=== PATIENT | male | born 1990 | race Hispanic/Latino ===

== ENCOUNTER 2022-07-29 17:34 | Inpatient (IN) | payer BC, OTHER ==
[~2022-07-29] VITALS: Ht 167.6 cm; Wt 70.8 kg
[2022-07-29 18:43] LABS: BASOPHILS % (AUTO) 0.3 % (0.0-5.0); MEAN CORPUSCULAR HEMOGLOBIN 29.8 pg (27.0-33.0); MEAN CORPUSCULAR VOLUME 85.2 fL (79-99); NEUTROPHILS % (AUTO) 82.3 % (40.0-77.0); PLATELET COUNT (AUTO) 370 K/uL (130-400); RED BLOOD CELL COUNT(AUTO) 3.52 MIL/uL (4.50-6.20); RED CELL DISTRIBUTION WIDTH 11.7 % (11.0-15.5)
[2022-07-29 18:55] LABS: INR 0.93 (0.85-1.15); PROTHROMBIN TIME 9.7 SEC (9.6-11.6)
[2022-07-29 18:56] LABS: PARTIAL THROMBOPLASTIN TIME 33.1 SEC (26.3-35.5)
[2022-07-29 19:02] LABS: ALBUMIN 2.5 g/dL (3.5-5.0); CREATININE 1.5 mg/dL (0.5-1.5); POTASSIUM 4.2 mmol/L (3.5-5.1); TOTAL PROTEIN, SERUM 7.6 g/dL (6.0-8.3)
[2022-07-29] MEDS ORDERED: 0.9%NACL 1000ML 2,500 ML IV ONE (19:30)
[2022-07-29] MEDS ORDERED: INSULIN REGULAR, HUMAN 3ML 100 UNIT in 0.9%NACL 100ML 100 ML IV SCH ×2 (19:30)
[2022-07-29] MEDS ORDERED: 0.9%NACL 1000ML 1,000 ML IV SCH (19:30)
[2022-07-29] MEDS ORDERED: POTASSIUM CHLORIDE 10MEQ/100ML 100 ML IV PRN (19:30)
[2022-07-29] MEDS ORDERED: POTASSIUM CHLORIDE 20 MEQ/10 ML VIAL IV SCH (19:30)
[2022-07-29] MEDS ORDERED: DEXTROSE 5 %-0.45 % NACL 1,000 ML IV SCH (19:30)
[2022-07-29] MEDS ORDERED: MAGNESIUM 2GM PREMIX 50ML 50 ML IV SCH (19:30)
[2022-07-29] MEDS ORDERED: MANNITOL 20% IV SCH (19:30)
[2022-07-29 20:13] LABS: ABG BASE EXCESS -2.1 mmol/L (-2.0-3.0); ABG HCO3 23.2 mmol/L (21.0-28.0); ABG OXYGEN SATURATION 93.6 % (95.0-99.0); ABG PCO2 42 mmHg (35-48)
[2022-07-29] MEDS ORDERED: INSULIN HUMULIN R 100 UNIT/ML 3ML IV ONE (21:00)
[2022-07-29] MEDS ORDERED: ZOSYN 3.375GM +NS 50ML IV ONE (21:30)
[2022-07-29] MEDS ORDERED: NS-20 MEQ KCL 1000ML 1,000 ML IV SCH (22:00)
[2022-07-30] MEDS ORDERED: ACETAMINOPHEN 325 MG TAB PO PRN
[2022-07-30] MEDS ORDERED: 0.9%NACL 1000ML 1,000 ML IV SCH
[2022-07-30] MEDS ORDERED: MORPHINE 2 MG SYG IV PRN
[2022-07-30] MEDS ORDERED: POTASSIUM CHLORIDE 10MEQ/100ML 100 ML IV PRN
[2022-07-30] MEDS ORDERED: MANNITOL 20% IV SCH
[2022-07-30] MEDS ORDERED: POTASSIUM CHLORIDE 20 MEQ/10 ML VIAL IV SCH
[2022-07-30] MEDS ORDERED: INSULIN REGULAR, HUMAN 3ML 100 UNIT in 0.9%NACL 100ML 100 ML IV SCH ×2
[2022-07-30] MEDS ORDERED: MAGNESIUM 2GM PREMIX 50ML 50 ML IV SCH
[2022-07-30] MEDS ORDERED: DEXTROSE 5 %-0.45 % NACL 1,000 ML IV SCH
[2022-07-30] MEDS ORDERED: D5W-1/2 NS/20MEQ KCL 1,000 ML IV SCH (00:30)
[2022-07-30] MEDS ORDERED: INSULIN REGULAR, HUMAN 3ML 100 UNIT in 0.9%NACL 100ML 99 ML IV PRN ×2 (00:30)
[2022-07-30 02:38] LABS: CREATININE 1.2 mg/dL (0.5-1.5); POTASSIUM 3.2 mmol/L (3.5-5.1)
[2022-07-30] MEDS ORDERED: LIDOCAINE HCL-MPF 1% 2ML VIAL IV PRN (03:00)
[2022-07-30] MEDS ORDERED: DEXTROSE 50%-WATER 50 ML DISP.SYRIN IV PRN (03:00)
[2022-07-30] MEDS ORDERED: POTASSIUM CHLORIDE 20MEQ/100ML 100 ML IV PRN (03:00)
[2022-07-30] MEDS ORDERED: GLUCAGON 1MG KIT 1 MG ML IM PRN (03:00)
[2022-07-30 04:20] LABS: BASOPHILS % (AUTO) 0.2 % (0.0-5.0); HEMATOCRIT 28.9 % (42-54); LYMPHOCYTES % (AUTO) 9.7 % (21.0-51.0); MEAN CORPUSCULAR HEMOGLOBIN 29.7 pg (27.0-33.0); MEAN CORPUSCULAR HGB CONC 33.9 g/dL (32.0-36.0); MEAN CORPUSCULAR VOLUME 87.6 fL (79-99); MONOCYTES % (AUTO) 9.1 % (3.0-13.0); NEUTROPHILS % (AUTO) 79.4 % (40.0-77.0); PLATELET COUNT (AUTO) 348 K/uL (130-400); RED CELL DISTRIBUTION WIDTH 11.7 % (11.0-15.5); WHITE BLOOD COUNT (AUTO) 18.7 K/uL (4.8-10.8)
[2022-07-30 04:37] LABS: CREATININE 1.4 mg/dL (0.5-1.5); POTASSIUM 4.1 mmol/L (3.5-5.1)
[2022-07-30 04:49] LABS: CRP QUANTITATIVE 306.8 mg/L (0.00-9.0)
[2022-07-30] MEDS: ZOSYN 3.375GM+NS 50ML 50 ML IV SCH ×3 (05:03→19:36)
[2022-07-30] MEDS: 0.9%NACL 1000ML 1,000 ML IV SCH ×2 (05:04→15:32)
[2022-07-30 05:54] LABS: ERYTHROCYTE SEDIMENTATION RATE 127 MM/HR (0-15)
[2022-07-30] MEDS: INSULIN HUMULIN R 100 UNIT/ML 3ML SQ SCH ×3 (06:11→23:33)
[2022-07-30] MEDS: ENOXAPARIN SODIUM 30 MG/0.3 ML SQ SCH (08:51)
[2022-07-30] MEDS: FAMOTIDINE 20MG VIAL IV SCH ×2 (08:52→19:35)
[2022-07-30 10:45] VITALS: BP 134/78
[2022-07-30 12:00] VITALS: BP 140/77
[2022-07-30 16:00] VITALS: BP 124/66
[2022-07-30 20:00] VITALS: BP 114/56
[2022-07-31] VITALS: BP 110/62
[2022-07-31 04:00] VITALS: BP 117/60
[2022-07-31 04:36] LABS: BASOPHILS % (AUTO) 0.3 % (0.0-5.0); EOSINOPHILS % (AUTO) 1.3 % (0.0-8.0); HEMATOCRIT 26.9 % (42-54); LYMPHOCYTES % (AUTO) 10.3 % (21.0-51.0); MEAN CORPUSCULAR HEMOGLOBIN 29.2 pg (27.0-33.0); MEAN CORPUSCULAR HGB CONC 33.5 g/dL (32.0-36.0); MEAN CORPUSCULAR VOLUME 87.3 fL (79-99); MONOCYTES % (AUTO) 7.8 % (3.0-13.0); NEUTROPHILS % (AUTO) 79.4 % (40.0-77.0); PLATELET COUNT (AUTO) 376 K/uL (130-400); RED BLOOD CELL COUNT(AUTO) 3.08 MIL/uL (4.50-6.20); RED CELL DISTRIBUTION WIDTH 12.1 % (11.0-15.5)
[2022-07-31 05:04] LABS: ALBUMIN 1.7 g/dL (3.5-5.0); CREATININE 2.5 mg/dL (0.5-1.5); POTASSIUM 3.9 mmol/L (3.5-5.1); TOTAL PROTEIN, SERUM 6.3 g/dL (6.0-8.3)
[2022-07-31] MEDS: ZOSYN 3.375GM+NS 50ML 50 ML IV SCH ×3 (05:07→20:20)
[2022-07-31] MEDS: 0.9%NACL 1000ML 1,000 ML IV SCH ×3 (05:07→20:20)
[2022-07-31] MEDS: INSULIN HUMULIN R 100 UNIT/ML 3ML SQ SCH ×4 (06:55→20:11)
[2022-07-31 08:00] VITALS: BP 110/69
[2022-07-31] MEDS: FAMOTIDINE 20MG VIAL IV SCH ×2 (08:58→20:20)
[2022-07-31] MEDS: ENOXAPARIN SODIUM 30 MG/0.3 ML SQ SCH (08:58)
[2022-07-31 12:00] VITALS: BP 101/67
[2022-07-31] MEDS ORDERED: INSULIN GLARGINE 100 UNITS/ML 10 ML VIAL SQ SCH (12:00)
[2022-07-31 12:15] LABS: HEMOGLOBIN A1C 13.4 % (4.0-6.0)
[2022-07-31] MEDS: ZYVOX 600 MG TAB PO SCH ×2 (14:18→23:55)
[2022-07-31 16:00] VITALS: BP 147/86
[2022-07-31 20:00] VITALS: BP 149/93
[2022-07-31] MEDS: ACETAMINOPHEN 325 MG TAB PO PRN (20:20)
[2022-08-01] VITALS (7 sets, daily range): BP systolic 62–144; BP diastolic 62–87
[2022-08-01] MEDS: ZOSYN 3.375GM+NS 50ML 50 ML IV SCH ×3 (04:01→20:13)
[2022-08-01 06:17] LABS: BASOPHILS % (AUTO) 0.4 % (0.0-5.0); EOSINOPHILS % (AUTO) 0.7 % (0.0-8.0); HEMATOCRIT 25.9 % (42-54); LYMPHOCYTES % (AUTO) 9.5 % (21.0-51.0); MEAN CORPUSCULAR HEMOGLOBIN 29.6 pg (27.0-33.0); MEAN CORPUSCULAR HGB CONC 33.2 g/dL (32.0-36.0); MONOCYTES % (AUTO) 6.7 % (3.0-13.0); NEUTROPHILS % (AUTO) 81.5 % (40.0-77.0); PLATELET COUNT (AUTO) 395 K/uL (130-400); RED BLOOD CELL COUNT(AUTO) 2.91 MIL/uL (4.50-6.20); RED CELL DISTRIBUTION WIDTH 12.1 % (11.0-15.5); WHITE BLOOD COUNT (AUTO) 20.4 K/uL (4.8-10.8)
[2022-08-01 06:28] LABS: CREATININE 2.9 mg/dL (0.5-1.5); POTASSIUM 4.3 mmol/L (3.5-5.1)
[2022-08-01] MEDS: INSULIN GLARGINE 100 UNITS/ML 10 ML VIAL SQ SCH (08:28)
[2022-08-01] MEDS: INSULIN HUMULIN R 100 UNIT/ML 3ML SQ SCH ×4 (08:29→20:12)
[2022-08-01] MEDS: 0.9%NACL 1000ML 1,000 ML IV SCH ×2 (08:29→17:00)
[2022-08-01] MEDS: ENOXAPARIN SODIUM 30 MG/0.3 ML SQ SCH (08:30)
[2022-08-01] MEDS: ONDANSETRON 4MG INJ IV PRN ×2 (08:30→16:21)
[2022-08-01] MEDS: FAMOTIDINE 20MG VIAL IV SCH ×2 (08:30→20:13)
[2022-08-01] MEDS ORDERED: Vitamin B Complex/Vit C/Folic Acid PO SCH (09:00)
[2022-08-01] MEDS: ZYVOX 600 MG TAB PO SCH (14:04)
[2022-08-01] MEDS ORDERED: SODIUM CHLORIDE 3% FOR INHALATION 4 ML/AMP VIAL.NEB IH ONE (14:58)
[2022-08-02] MEDS: ZYVOX 600 MG TAB PO SCH (00:48)
[2022-08-02] MEDS: 0.9%NACL 1000ML 1,000 ML IV SCH (03:00)
[2022-08-02 03:24] VITALS: BP 153/86
[2022-08-02 05:18] LABS: BASOPHILS % (AUTO) 0.3 % (0.0-5.0); EOSINOPHILS % (AUTO) 0.9 % (0.0-8.0); HEMATOCRIT 26.7 % (42-54); LYMPHOCYTES % (AUTO) 9.6 % (21.0-51.0); MEAN CORPUSCULAR HEMOGLOBIN 29.2 pg (27.0-33.0); MEAN CORPUSCULAR VOLUME 88.7 fL (79-99); MONOCYTES % (AUTO) 6.4 % (3.0-13.0); NEUTROPHILS % (AUTO) 81.5 % (40.0-77.0); PLATELET COUNT (AUTO) 495 K/uL (130-400); RED BLOOD CELL COUNT(AUTO) 3.01 MIL/uL (4.50-6.20); RED CELL DISTRIBUTION WIDTH 12.5 % (11.0-15.5); WHITE BLOOD COUNT (AUTO) 18.5 K/uL (4.8-10.8)
[2022-08-02 05:33] LABS: ALBUMIN 1.6 g/dL (3.5-5.0); CREATININE 2.5 mg/dL (0.5-1.5); PHOSPHORUS 3.3 mg/dL (2.5-4.9); POTASSIUM 3.9 mmol/L (3.5-5.1)
[2022-08-02] MEDS: ZOSYN 3.375GM+NS 50ML 50 ML IV SCH (05:49)
[2022-08-02] MEDS: ACETAMINOPHEN 325 MG TAB PO PRN (05:54)
[2022-08-02] MEDS: INSULIN HUMULIN R 100 UNIT/ML 3ML SQ SCH ×5 (07:30→20:34)
[2022-08-02 08:00] VITALS: BP 144/84
[2022-08-02] MEDS: ENOXAPARIN SODIUM 30 MG/0.3 ML SQ SCH (08:18)
[2022-08-02] MEDS: FAMOTIDINE 20MG VIAL IV SCH ×2 (08:19→20:27)
[2022-08-02] MEDS: INSULIN GLARGINE 100 UNITS/ML 10 ML VIAL SQ SCH (08:22)
[2022-08-02 12:00] VITALS: BP 147/91
[2022-08-02] MEDS: CEFAZOLIN SODIUM 2 GM VIAL IVPB SCH ×2 (13:18→20:27)
[2022-08-02 16:00] VITALS: BP 147/87
[2022-08-02 21:05] VITALS: BP 136/85
[2022-08-03] VITALS (23 sets, daily range): BP systolic 140–172; BP diastolic 78–121
[2022-08-03 05:58] LABS: BASOPHILS % (AUTO) 0.3 % (0.0-5.0); EOSINOPHILS % (AUTO) 1.3 % (0.0-8.0); HEMATOCRIT 27.2 % (42-54); MEAN CORPUSCULAR HEMOGLOBIN 29.9 pg (27.0-33.0); MEAN CORPUSCULAR HGB CONC 33.1 g/dL (32.0-36.0); MEAN CORPUSCULAR VOLUME 90.4 fL (79-99); MONOCYTES % (AUTO) 6.9 % (3.0-13.0); NEUTROPHILS % (AUTO) 77.6 % (40.0-77.0); PLATELET COUNT (AUTO) 503 K/uL (130-400); RED BLOOD CELL COUNT(AUTO) 3.01 MIL/uL (4.50-6.20); RED CELL DISTRIBUTION WIDTH 12.5 % (11.0-15.5); WHITE BLOOD COUNT (AUTO) 16.3 K/uL (4.8-10.8)
[2022-08-03 06:16] LABS: CREATININE 2.3 mg/dL (0.5-1.5); POTASSIUM 3.8 mmol/L (3.5-5.1)
[2022-08-03] MEDS: INSULIN HUMULIN R 100 UNIT/ML 3ML SQ SCH ×7 (06:41→22:41)
[2022-08-03] MEDS: INSULIN GLARGINE 100 UNITS/ML 10 ML VIAL SQ SCH (07:17)
[2022-08-03] MEDS: ENOXAPARIN SODIUM 30 MG/0.3 ML SQ SCH (07:18)
[2022-08-03] MEDS: FAMOTIDINE 20MG VIAL IV SCH ×2 (08:33→19:41)
[2022-08-03] MEDS: CEFAZOLIN SODIUM 2 GM VIAL IVPB SCH ×2 (08:33→19:41)
[2022-08-03] MEDS: LACTATED RINGERS 1000ML 1,000 ML IV SCH (10:30)
[2022-08-03] MEDS ORDERED: LIDOCAINE HCL 1% 20 ML VIAL ONE (12:52)
[2022-08-03] MEDS ORDERED: BUPIVACAINE/PF 0.5% 30ML VIAL ONE (12:52)
[2022-08-03] MEDS ORDERED: FENTANYL CITRATE PF 50 MCG/1 ML 2ML VIAL ONE ×2 (13:19→15:11)
[2022-08-03] MEDS ORDERED: MIDAZOLAM HCL 1 MG/ML 2ML VIAL ONE (13:19)
[2022-08-03] MEDS ORDERED: BACITRACIN 28.4 GM OINT TP ONE (13:25)
[2022-08-03] MEDS ORDERED: DEXTROSE 50%-WATER 50 ML DISP.SYRIN IV ONE (13:55)
[2022-08-03] MEDS ORDERED: LIDOCAINE HCL 1% 20 ML VIAL MISC ONE (15:23)
[2022-08-03] MEDS ORDERED: BUPIVACAINE/PF 0.5% 30ML VIAL INJ ONE (15:23)
[2022-08-04] VITALS: BP 151/87
[2022-08-04] MEDS: LACTATED RINGERS 1000ML 1,000 ML IV SCH ×3 (02:30→18:43)
[2022-08-04] MEDS: INSULIN HUMULIN R 100 UNIT/ML 3ML SQ SCH ×7 (06:44→20:52)
[2022-08-04 08:00] VITALS: BP 105/69
[2022-08-04 08:02] VITALS: BP 162/94
[2022-08-04] MEDS: INSULIN GLARGINE 100 UNITS/ML 10 ML VIAL SQ SCH (09:01)
[2022-08-04] MEDS: AMLODIPINE 5 MG TAB PO SCH (09:21)
[2022-08-04] MEDS: FAMOTIDINE 20MG VIAL IV SCH ×2 (09:21→22:28)
[2022-08-04] MEDS: ENOXAPARIN SODIUM 30 MG/0.3 ML SQ SCH (09:23)
[2022-08-04] MEDS: CEFAZOLIN SODIUM 2 GM VIAL IVPB SCH ×2 (11:16→22:27)
[2022-08-04 11:45] VITALS: BP 146/79
[2022-08-04 16:00] VITALS: BP 153/88
[2022-08-04 19:00] VITALS: BP 160/94
[2022-08-04 19:58] LABS: APPEARANCE,URINE CLOUDY (CLEAR); BILIRUBIN,URINE NEGATIVE (NEGATIVE); GLUCOSE, URINE (UA) 500 mg/dL (NEGATIVE); KETONES,URINE NEGATIVE (NEGATIVE); LEUKOCYTE ESTERASE ,URINE NEGATIVE Leu/uL (NEGATIVE); NITRATE,URINE NEGATIVE (NEGATIVE); OCCULT BLOOD,URINE LARGE (NEGATIVE); PH,URINE 7.5 (5.0-8.0); PROTEIN,URINE 300 mg/dL (NEGATIVE); UROBILINOGEN,URINE 0.2 mg/dL (0.2-1.0)
[2022-08-04 20:01] LABS: CREATININE,URINE RANDOM 22 mg/dL (30-135); SODIUM,URINE RANDOM 91 mmol/l (40-220)
[2022-08-04 20:07] LABS: MUCUS,URINE RARE LPF (None Seen); RBC,URINE TNTC /HPF (0-1)
[2022-08-04 20:08] LABS: COLOR,URINE RED (YELLOW)
[2022-08-05] VITALS: BP 137/74
[2022-08-05] MEDS: LACTATED RINGERS 1000ML 1,000 ML IV SCH ×2 (02:30→10:30)
[2022-08-05 04:00] VITALS: BP 136/78
[2022-08-05 05:20] LABS: BASOPHILS % (AUTO) 0.3 % (0.0-5.0); EOSINOPHILS % (AUTO) 2.3 % (0.0-8.0); HEMATOCRIT 26.8 % (42-54); LYMPHOCYTES % (AUTO) 19.1 % (21.0-51.0); MEAN CORPUSCULAR HEMOGLOBIN 29.2 pg (27.0-33.0); MEAN CORPUSCULAR HGB CONC 33.2 g/dL (32.0-36.0); MEAN CORPUSCULAR VOLUME 87.9 fL (79-99); MONOCYTES % (AUTO) 7.1 % (3.0-13.0); NEUTROPHILS % (AUTO) 69.6 % (40.0-77.0); PLATELET COUNT (AUTO) 515 K/uL (130-400); RED BLOOD CELL COUNT(AUTO) 3.05 MIL/uL (4.50-6.20); RED CELL DISTRIBUTION WIDTH 12.2 % (11.0-15.5); WHITE BLOOD COUNT (AUTO) 14.2 K/uL (4.8-10.8)
[2022-08-05 05:26] LABS: CREATININE 1.9 mg/dL (0.5-1.5); MAGNESIUM 1.8 mg/dL (1.80-2.40); PHOSPHORUS 3.5 mg/dL (2.5-4.9); POTASSIUM 4.3 mmol/L (3.5-5.1)
[2022-08-05] MEDS: INSULIN HUMULIN R 100 UNIT/ML 3ML SQ SCH ×4 (06:59→12:36)
[2022-08-05 08:00] VITALS: BP 137/87
[2022-08-05] MEDS: INSULIN GLARGINE 100 UNITS/ML 10 ML VIAL SQ SCH (08:22)
[2022-08-05] MEDS: FAMOTIDINE 20MG VIAL IV SCH (08:24)
[2022-08-05] MEDS: ENOXAPARIN SODIUM 30 MG/0.3 ML SQ SCH (08:24)
[2022-08-05] MEDS: AMLODIPINE 5 MG TAB PO SCH (08:24)
[2022-08-05] MEDS ORDERED: METF-446 PO (10:49)
[2022-08-05] MEDS ORDERED: CEFU500T67 PO (10:49)
[2022-08-05] MEDS ORDERED: AMLO5TAB4 PO (10:49)
[2022-08-05 12:00] VITALS: BP 155/90
[2022-08-05] MEDS: CEFAZOLIN SODIUM 2 GM VIAL IVPB SCH (12:35)
== END 2022-08-05 16:09 | disposition home or self-care (01) | DRG 853 ==
LOC: EDH 17:34 → EDHIP 17:35 → 4AH 07-30 10:00
PROVIDERS: ADMIT Internal Medicine; ATTEND Internal Medicine
PROC: 0JBQ0ZZ Excision of Right Foot Subcutaneous Tissue and Fascia, Open Approach (ICD-10-PCS; principal; 2022-08-03 15:03)
DX: A41.01 Sepsis due to Methicillin susceptible Staphylococcus aureus (principal); E11.10 Type 2 diabetes mellitus with ketoacidosis without coma; N17.0 Acute kidney failure with tubular necrosis; Z20.822 Contact with and (suspected) exposure to COVID-19; L03.115 Cellulitis of right lower limb; J90 Pleural effusion, not elsewhere classified; E11.621 Type 2 diabetes mellitus with foot ulcer; L97.519 Non-pressure chronic ulcer of other part of right foot with unspecified severity; E11.42 Type 2 diabetes mellitus with diabetic polyneuropathy; D63.1 Anemia in chronic kidney disease; E11.22 Type 2 diabetes mellitus with diabetic chronic kidney disease; E11.69 Type 2 diabetes mellitus with other specified complication; E66.9 Obesity, unspecified; N18.9 Chronic kidney disease, unspecified; I12.9 Hypertensive chronic kidney disease with stage 1 through stage 4 chronic kidney disease, or unspecified chronic kidney disease; Z83.3 Family history of diabetes mellitus; Z91.199 Patient's noncompliance with other medical treatment and regimen due to unspecified reason; Z79.4 Long term (current) use of insulin; Z79.84 Long term (current) use of oral hypoglycemic drugs; Z68.25 Body mass index [BMI] 25.0-25.9, adult
CPT/HCPCS: 36415; 36600; 71045; 73620; 73718; 76770; 80048; 80053; 80069; 81001; 82010; 82570; 82803; 82948; 83036; 83605; 83735; 83930; 84100; 84145; 84300; 85025; 85610; 85651; 85730; 86140; 87040; 87070; 87071; 87076; 87077; 87186; 87205; 87635; 87804; 87880; 93926; 93970; A4606; C9803; G0378; J1650; J1815; J2250; J2405; J2543; J3010; J3480; J3490; J7030; J7070

== ENCOUNTER 2022-09-15 18:25 | Inpatient (IN) | payer OTHER ==
[~2022-09-15] VITALS: Ht 170.2 cm; Wt 69.0 kg
[~2022-09-15 18:25] MED LIST: AMLO5TAB4 PO; CEFU500T67 PO; METF-446 PO
[2022-09-15] MEDS ORDERED: ONDANSETRON 4MG INJ IV PRN (19:30)
[2022-09-15] MEDS ORDERED: MORPHINE 2 MG SYG IV PRN (19:30)
[2022-09-15] MEDS ORDERED: VANCOMYCIN PROTOCOL PER PHARMACY IV PRN (19:30)
[2022-09-15] MEDS ORDERED: PHARMACY COMMUNICATION MISC SCH (19:30)
[2022-09-15] MEDS ORDERED: ACETAMINOPHEN 325 MG TAB PO PRN (19:30)
[2022-09-15] MEDS ORDERED: MORPHINE 4 MG SYG IV PRN (19:30)
[2022-09-15 20:21] LABS: BASOPHILS % (AUTO) 0.4 % (0.0-5.0); EOSINOPHILS % (AUTO) 2.4 % (0.0-8.0); HEMATOCRIT 30.7 % (42-54); LYMPHOCYTES % (AUTO) 16.4 % (21.0-51.0); MEAN CORPUSCULAR HEMOGLOBIN 28.5 pg (27.0-33.0); MEAN CORPUSCULAR HGB CONC 33.2 g/dL (32.0-36.0); MEAN CORPUSCULAR VOLUME 85.8 fL (79-99); MONOCYTES % (AUTO) 7.3 % (3.0-13.0); NEUTROPHILS % (AUTO) 73.1 % (40.0-77.0); PLATELET COUNT (AUTO) 377 K/uL (130-400); RED BLOOD CELL COUNT(AUTO) 3.58 MIL/uL (4.50-6.20); RED CELL DISTRIBUTION WIDTH 12.3 % (11.0-15.5); WHITE BLOOD COUNT (AUTO) 10.7 K/uL (4.8-10.8)
[2022-09-15 20:33] LABS: INR 0.93 (0.85-1.15); PROTHROMBIN TIME 9.9 SEC (9.6-11.6)
[2022-09-15 20:34] LABS: PARTIAL THROMBOPLASTIN TIME 28.5 SEC (26.3-35.5)
[2022-09-15 20:40] LABS: HEMOGLOBIN A1C 12.6 % (4.0-6.0)
[2022-09-15 20:54] LABS: ALBUMIN 2.4 g/dL (3.5-5.0); CREATININE 1.5 mg/dL (0.5-1.5); MAGNESIUM 1.8 mg/dL (1.80-2.40); PHOSPHORUS 3.8 mg/dL (2.5-4.9); POTASSIUM 4.6 mmol/L (3.5-5.1); TOTAL PROTEIN, SERUM 7.7 g/dL (6.0-8.3)
[2022-09-15] MEDS: LACTATED RINGERS 1000ML 1,000 ML IV SCH (21:50)
[2022-09-15] MEDS: CEFEPIME HCL 2 GM VIAL IVPB SCH (21:50)
[2022-09-15] MEDS: FAMOTIDINE 20MG TAB PO SCH (21:50)
[2022-09-15] MEDS: VANCOMYCIN 1G/250ML KIT 250 ML IV SCH (21:50)
[2022-09-15 22:20] LABS: APPEARANCE,URINE CLEAR (CLEAR); BILIRUBIN,URINE NEGATIVE (NEGATIVE); COLOR,URINE COLORLESS (YELLOW); GLUCOSE, URINE (UA) >=1000 mg/dL (NEGATIVE); KETONES,URINE NEGATIVE (NEGATIVE); LEUKOCYTE ESTERASE ,URINE NEGATIVE Leu/uL (NEGATIVE); NITRATE,URINE NEGATIVE (NEGATIVE); OCCULT BLOOD,URINE SMALL (NEGATIVE); PH,URINE 6.5 (5.0-8.0); PROTEIN,URINE 200 mg/dL (NEGATIVE); UROBILINOGEN,URINE 0.2 mg/dL (0.2-1.0)
[2022-09-15 22:22] LABS: BACTERIA,URINE RARE /HPF (None Seen); MUCUS,URINE RARE LPF (None Seen)
[2022-09-15 23:06] VITALS: BP 166/94
[2022-09-16] MEDS ORDERED: POTASSIUM CHLORIDE 10% ELIXIR 20 MEQ/15 ML UDCUP PO PRN (01:30)
[2022-09-16] MEDS ORDERED: POTASSIUM CHLORIDE 20MEQ/100ML 100 ML IV PRN (01:30)
[2022-09-16] MEDS ORDERED: KCL 20 MEQ ERTAB PO PRN (01:30)
[2022-09-16] MEDS ORDERED: MAGNESIUM 2GM PREMIX 50ML 50 ML IV PRN (01:30)
[2022-09-16] MEDS ORDERED: LIDOCAINE HCL-MPF 1% 2ML VIAL IV PRN (01:30)
[2022-09-16 04:02] VITALS: BP 154/96
[2022-09-16 05:45] LABS: BASOPHILS % (AUTO) 0.7 % (0.0-5.0); HEMATOCRIT 26.8 % (42-54); LYMPHOCYTES % (AUTO) 27.5 % (21.0-51.0); MEAN CORPUSCULAR HEMOGLOBIN 28.5 pg (27.0-33.0); MEAN CORPUSCULAR HGB CONC 32.5 g/dL (32.0-36.0); MEAN CORPUSCULAR VOLUME 87.9 fL (79-99); MONOCYTES % (AUTO) 8.4 % (3.0-13.0); NEUTROPHILS % (AUTO) 58.1 % (40.0-77.0); PLATELET COUNT (AUTO) 341 K/uL (130-400); RED BLOOD CELL COUNT(AUTO) 3.05 MIL/uL (4.50-6.20); RED CELL DISTRIBUTION WIDTH 12.2 % (11.0-15.5); WHITE BLOOD COUNT (AUTO) 8.9 K/uL (4.8-10.8)
[2022-09-16 05:55] LABS: CREATININE 1.2 mg/dL (0.5-1.5); POTASSIUM 3.9 mmol/L (3.5-5.1)
[2022-09-16] MEDS: INSULIN HUMULIN R 100 UNIT/ML 3ML SQ SCH ×4 (06:19→21:00)
[2022-09-16 07:30] VITALS: BP 129/92
[2022-09-16] MEDS: ENOXAPARIN SODIUM 40 MG/0.4 ML SYRINGE SQ SCH ×2 (08:29→09:00)
[2022-09-16] MEDS: FAMOTIDINE 20MG TAB PO SCH ×2 (08:29→21:31)
[2022-09-16] MEDS: CEFEPIME HCL 2 GM VIAL IVPB SCH ×2 (08:29→21:30)
[2022-09-16] MEDS: VANCOMYCIN 1G/250ML KIT 250 ML IV SCH ×2 (09:23→21:31)
[2022-09-16] MEDS: INSULIN GLARGINE 100 UNITS/ML 10 ML VIAL SQ SCH ×2 (11:20→21:32)
[2022-09-16 11:25] VITALS: BP 160/93
[2022-09-16] MEDS: LACTATED RINGERS 1000ML 1,000 ML IV SCH (12:19)
[2022-09-16 15:25] VITALS: BP 170/100
[2022-09-16] MEDS: ACETAMINOPHEN 325 MG TAB PO PRN (16:41)
[2022-09-16 19:12] VITALS: BP 155/84
[2022-09-16] MEDS ORDERED: 0.9% NACL 250ML 250 ML ONE (21:19)
[2022-09-17 00:12] VITALS: BP 144/83
[2022-09-17] MEDS: LACTATED RINGERS 1000ML 1,000 ML IV SCH ×2 (01:32→21:39)
[2022-09-17 03:12] VITALS: BP 124/77
[2022-09-17] MEDS: INSULIN HUMULIN R 100 UNIT/ML 3ML SQ SCH ×4 (06:22→21:00)
[2022-09-17] MEDS: INSULIN GLARGINE 100 UNITS/ML 10 ML VIAL SQ SCH (06:26)
[2022-09-17 07:30] VITALS: BP 125/72
[2022-09-17 08:01] LABS: BASOPHILS % (AUTO) 0.5 % (0.0-5.0); EOSINOPHILS % (AUTO) 2.7 % (0.0-8.0); HEMATOCRIT 27.2 % (42-54); LYMPHOCYTES % (AUTO) 16.2 % (21.0-51.0); MEAN CORPUSCULAR HEMOGLOBIN 28.4 pg (27.0-33.0); MEAN CORPUSCULAR HGB CONC 33.1 g/dL (32.0-36.0); MEAN CORPUSCULAR VOLUME 85.8 fL (79-99); MONOCYTES % (AUTO) 5.3 % (3.0-13.0); NEUTROPHILS % (AUTO) 74.9 % (40.0-77.0); PLATELET COUNT (AUTO) 368 K/uL (130-400); RED BLOOD CELL COUNT(AUTO) 3.17 MIL/uL (4.50-6.20); RED CELL DISTRIBUTION WIDTH 12.3 % (11.0-15.5); WHITE BLOOD COUNT (AUTO) 8.5 K/uL (4.8-10.8)
[2022-09-17 08:15] LABS: ALBUMIN 1.8 g/dL (3.5-5.0); CREATININE 1.2 mg/dL (0.5-1.5); CRP QUANTITATIVE 44.3 mg/L (0.00-9.0); MAGNESIUM 1.7 mg/dL (1.80-2.40); POTASSIUM 3.7 mmol/L (3.5-5.1); TOTAL PROTEIN, SERUM 6.5 g/dL (6.0-8.3)
[2022-09-17] MEDS: AMLODIPINE 5 MG TAB PO SCH (08:41)
[2022-09-17] MEDS: CEFEPIME HCL 2 GM VIAL IVPB SCH ×2 (08:41→21:37)
[2022-09-17] MEDS: FAMOTIDINE 20MG TAB PO SCH ×2 (08:41→21:37)
[2022-09-17] MEDS: ENOXAPARIN SODIUM 40 MG/0.4 ML SYRINGE SQ SCH (08:42)
[2022-09-17 11:30] VITALS: BP 144/82
[2022-09-17 15:20] VITALS: BP 140/87
[2022-09-17] MEDS: INSULIN HUMULIN 70/30 100 UNIT/ML 3ML SQ SCH (16:38)
[2022-09-17 19:15] VITALS: BP 154/91
[2022-09-17] MEDS: VANCOMYCIN 750MG VIAL IVPB SCH (21:38)
[2022-09-17] MEDS: 0.9% NACL 250ML 250 ML IV SCH (21:38)
[2022-09-18 00:15] VITALS: BP 130/82
[2022-09-18 03:15] VITALS: BP 174/95
[2022-09-18] MEDS: INSULIN HUMULIN R 100 UNIT/ML 3ML SQ SCH ×4 (06:04→22:02)
[2022-09-18] MEDS: INSULIN HUMULIN 70/30 100 UNIT/ML 3ML SQ SCH ×2 (06:22→17:10)
[2022-09-18 08:00] VITALS: BP 144/90
[2022-09-18] MEDS: CEFEPIME HCL 2 GM VIAL IVPB SCH ×2 (09:03→22:00)
[2022-09-18] MEDS: AMLODIPINE 5 MG TAB PO SCH (09:04)
[2022-09-18] MEDS: FAMOTIDINE 20MG TAB PO SCH ×2 (09:04→22:01)
[2022-09-18] MEDS: VANCOMYCIN 750MG VIAL IVPB SCH ×2 (09:04→22:00)
[2022-09-18] MEDS: ENOXAPARIN SODIUM 40 MG/0.4 ML SYRINGE SQ SCH (09:04)
[2022-09-18] MEDS: 0.9% NACL 250ML 250 ML IV SCH ×2 (09:05→22:01)
[2022-09-18 11:48] VITALS: BP 142/87
[2022-09-18] MEDS: LISINOPRIL 20 MG TABLET PO SCH (12:17)
[2022-09-18 16:00] VITALS: BP 162/95
[2022-09-18] MEDS: LACTATED RINGERS 1000ML 1,000 ML IV SCH (17:14)
[2022-09-18 19:00] VITALS: BP 147/86
[2022-09-19] VITALS (24 sets, daily range): BP systolic 115–156; BP diastolic 65–98
[2022-09-19] MEDS: LACTATED RINGERS 1000ML 1,000 ML IV SCH (03:07)
[2022-09-19] MEDS ORDERED: BUPIVACAINE/PF 0.5% 30ML VIAL ONE (05:03)
[2022-09-19] MEDS ORDERED: LIDOCAINE HCL 1% MDV 50ML VIAL ONE (05:03)
[2022-09-19] MEDS: INSULIN HUMULIN R 100 UNIT/ML 3ML SQ SCH ×4 (06:09→21:00)
[2022-09-19] MEDS: INSULIN HUMULIN 70/30 100 UNIT/ML 3ML SQ SCH ×2 (06:10→16:42)
[2022-09-19 07:09] LABS: BASOPHILS % (AUTO) 0.8 % (0.0-5.0); EOSINOPHILS % (AUTO) 1.4 % (0.0-8.0); HEMATOCRIT 33.9 % (42-54); LYMPHOCYTES % (AUTO) 20.8 % (21.0-51.0); MEAN CORPUSCULAR HEMOGLOBIN 28.2 pg (27.0-33.0); MEAN CORPUSCULAR HGB CONC 32.2 g/dL (32.0-36.0); MEAN CORPUSCULAR VOLUME 87.8 fL (79-99); MONOCYTES % (AUTO) 4.8 % (3.0-13.0); NEUTROPHILS % (AUTO) 71.7 % (40.0-77.0); PLATELET COUNT (AUTO) 452 K/uL (130-400); RED BLOOD CELL COUNT(AUTO) 3.86 MIL/uL (4.50-6.20); RED CELL DISTRIBUTION WIDTH 12.4 % (11.0-15.5); WHITE BLOOD COUNT (AUTO) 8.6 K/uL (4.8-10.8)
[2022-09-19 07:24] LABS: CREATININE 1.3 mg/dL (0.5-1.5); MAGNESIUM 1.7 mg/dL (1.80-2.40); PHOSPHORUS 4.4 mg/dL (2.5-4.9); POTASSIUM 3.9 mmol/L (3.5-5.1)
[2022-09-19] MEDS ORDERED: MIDAZOLAM HCL 1 MG/ML 2ML VIAL ONE (07:35)
[2022-09-19] MEDS ORDERED: FENTANYL CITRATE PF 50 MCG/1 ML 2ML VIAL ONE ×2 (07:36→08:23)
[2022-09-19] MEDS ORDERED: PROPOFOL 10 MG/ML 20ML VIAL IV ONE (07:36)
[2022-09-19] MEDS ORDERED: PHENYLEPHRINE HCL 10 MG/ML 1ML VIAL IV ONE (08:39)
[2022-09-19] MEDS: CEFEPIME HCL 2 GM VIAL IVPB SCH (11:13)
[2022-09-19] MEDS: ENOXAPARIN SODIUM 40 MG/0.4 ML SYRINGE SQ SCH (11:14)
[2022-09-19] MEDS: AMLODIPINE 5 MG TAB PO SCH (11:15)
[2022-09-19] MEDS: LISINOPRIL 20 MG TABLET PO SCH (11:15)
[2022-09-19] MEDS: FAMOTIDINE 20MG TAB PO SCH ×2 (11:15→22:08)
[2022-09-20] VITALS: BP 136/75
[2022-09-20 04:00] VITALS: BP 92/56
[2022-09-20] MEDS: INSULIN HUMULIN 70/30 100 UNIT/ML 3ML SQ SCH ×2 (06:34→16:30)
[2022-09-20] MEDS: INSULIN HUMULIN R 100 UNIT/ML 3ML SQ SCH ×4 (06:35→21:00)
[2022-09-20 06:59] LABS: BASOPHILS % (AUTO) 0.4 % (0.0-5.0); EOSINOPHILS % (AUTO) 1.4 % (0.0-8.0); HEMATOCRIT 27.7 % (42-54); LYMPHOCYTES % (AUTO) 15.6 % (21.0-51.0); MEAN CORPUSCULAR HEMOGLOBIN 28.1 pg (27.0-33.0); MEAN CORPUSCULAR HGB CONC 32.1 g/dL (32.0-36.0); MEAN CORPUSCULAR VOLUME 87.4 fL (79-99); MONOCYTES % (AUTO) 8.2 % (3.0-13.0); NEUTROPHILS % (AUTO) 74.2 % (40.0-77.0); PLATELET COUNT (AUTO) 361 K/uL (130-400); RED BLOOD CELL COUNT(AUTO) 3.17 MIL/uL (4.50-6.20); RED CELL DISTRIBUTION WIDTH 12.5 % (11.0-15.5); WHITE BLOOD COUNT (AUTO) 9.7 K/uL (4.8-10.8)
[2022-09-20 07:25] VITALS: BP 100/61
[2022-09-20 07:51] LABS: CREATININE 1.3 mg/dL (0.5-1.5); POTASSIUM 3.5 mmol/L (3.5-5.1); VANCOMYCIN LEVEL 8.7 mcg/mL (18.0-26.0)
[2022-09-20] MEDS: FAMOTIDINE 20MG TAB PO SCH ×2 (08:34→22:32)
[2022-09-20] MEDS: ENOXAPARIN SODIUM 40 MG/0.4 ML SYRINGE SQ SCH (08:35)
[2022-09-20] MEDS: AMLODIPINE 5 MG TAB PO SCH (09:00)
[2022-09-20] MEDS: LISINOPRIL 20 MG TABLET PO SCH (09:00)
[2022-09-20 10:40] VITALS: BP 106/63
[2022-09-20 15:55] VITALS: BP 137/79
[2022-09-20] MEDS ORDERED: VANCOMYCIN 1G/250ML KIT 250 ML IV ONE (16:30)
[2022-09-20] MEDS ORDERED: 0.9% NACL 250ML 250 ML ONE (16:45)
[2022-09-20 20:00] VITALS: BP 136/81
[2022-09-21] VITALS: BP 137/68
[2022-09-21 04:00] VITALS: BP 129/74
[2022-09-21 05:08] LABS: BASOPHILS % (AUTO) 0.5 % (0.0-5.0); EOSINOPHILS % (AUTO) 3.2 % (0.0-8.0); HEMATOCRIT 24.2 % (42-54); LYMPHOCYTES % (AUTO) 25.6 % (21.0-51.0); MEAN CORPUSCULAR HEMOGLOBIN 28.5 pg (27.0-33.0); MEAN CORPUSCULAR HGB CONC 31.8 g/dL (32.0-36.0); MEAN CORPUSCULAR VOLUME 89.6 fL (79-99); MONOCYTES % (AUTO) 9.6 % (3.0-13.0); NEUTROPHILS % (AUTO) 60.7 % (40.0-77.0); PLATELET COUNT (AUTO) 317 K/uL (130-400); RED CELL DISTRIBUTION WIDTH 12.4 % (11.0-15.5); WHITE BLOOD COUNT (AUTO) 9.8 K/uL (4.8-10.8)
[2022-09-21 05:15] LABS: CREATININE 1.2 mg/dL (0.5-1.5); POTASSIUM 3.8 mmol/L (3.5-5.1)
[2022-09-21] MEDS ORDERED: 0.9%NACL 100ML 100 ML ONE (06:16)
[2022-09-21] MEDS: VANCOMYCIN 500MG+NS 100ML 100 ML IV SCH ×2 (06:21→18:00)
[2022-09-21] MEDS: INSULIN HUMULIN R 100 UNIT/ML 3ML SQ SCH ×3 (06:23→16:43)
[2022-09-21] MEDS: INSULIN HUMULIN 70/30 100 UNIT/ML 3ML SQ SCH ×2 (06:24→16:44)
[2022-09-21 08:00] VITALS: BP 124/77
[2022-09-21] MEDS: ENOXAPARIN SODIUM 40 MG/0.4 ML SYRINGE SQ SCH (08:48)
[2022-09-21] MEDS: FAMOTIDINE 20MG TAB PO SCH (08:49)
[2022-09-21] MEDS: AMLODIPINE 5 MG TAB PO SCH (08:49)
[2022-09-21] MEDS: LISINOPRIL 20 MG TABLET PO SCH (08:49)
[2022-09-21 12:00] VITALS: BP 122/76
[2022-09-21] MEDS: LACTATED RINGERS 1000ML 1,000 ML IV SCH (12:25)
[2022-09-21] MEDS: ACETAMINOPHEN 325 MG TAB PO PRN (12:30)
== END 2022-09-21 18:30 | disposition home or self-care (01) | DRG 616 ==
LOC: EDH 18:25 → EDHIP 18:26 → DIRECT 19:20 → 3DH 23:02
PROVIDERS: ADMIT Internal Medicine; ATTEND Internal Medicine
PROC: 0Y6M0ZF Detachment at Right Foot, Partial 5th Ray, Open Approach (ICD-10-PCS; principal; 2022-09-19 08:05)
DX: E11.621 Type 2 diabetes mellitus with foot ulcer (principal); E43 Unspecified severe protein-calorie malnutrition; L03.115 Cellulitis of right lower limb; M86.8X7 Other osteomyelitis, ankle and foot; Z20.822 Contact with and (suspected) exposure to COVID-19; N17.9 Acute kidney failure, unspecified; E11.69 Type 2 diabetes mellitus with other specified complication; L97.514 Non-pressure chronic ulcer of other part of right foot with necrosis of bone; E86.0 Dehydration; E11.65 Type 2 diabetes mellitus with hyperglycemia; E66.9 Obesity, unspecified; E11.42 Type 2 diabetes mellitus with diabetic polyneuropathy; E11.51 Type 2 diabetes mellitus with diabetic peripheral angiopathy without gangrene; Z83.3 Family history of diabetes mellitus; Z51.5 Encounter for palliative care; Z79.84 Long term (current) use of oral hypoglycemic drugs; Z79.899 Other long term (current) drug therapy
CPT/HCPCS: 36415; 73630; 73718; 80048; 80053; 80202; 81001; 82948; 83036; 83605; 83735; 84100; 84145; 85025; 85610; 85730; 86140; 86850; 86900; 86901; 87040; 87070; 87076; 87077; 87088; 87186; 87205; 87635; 93005; 93926; 97039; G0378; J0692; J1650; J1815; J2250; J2370; J2405; J2704; J3010; J3370; J3490; J7050; J7120

== ENCOUNTER 2022-11-13 10:17 | Emergency (ER) | payer BC, OTHER ==
[~2022-11-13] VITALS: Ht 167.6 cm; Wt 74.8 kg
[~2022-11-13 10:17] MED LIST changes: -CEFU500T67 PO
[2022-11-13 10:18] VITALS: BP 151/101
[2022-11-13] MEDS ORDERED: SOLU-MEDROL 125MG VIAL IM ONE (11:00)
[2022-11-13] MEDS ORDERED: PRED-904 PO (11:09)
== END 2022-11-13 12:45 | disposition home or self-care (01) ==
LOC: EDH 10:17
DX: H02.846 Edema of left eye, unspecified eyelid (principal); H02.843 Edema of right eye, unspecified eyelid; E11.9 Type 2 diabetes mellitus without complications; Z79.899 Other long term (current) drug therapy; Z79.84 Long term (current) use of oral hypoglycemic drugs; Z98.890 Other specified postprocedural states
CPT/HCPCS: 99284; 96372; J2930

== ENCOUNTER 2025-07-09 12:42 | Emergency (ER) | payer MEDICAID, OTHER ==
[~2025-07-09] VITALS: Ht 170.2 cm; Wt 73.5 kg
[~2025-07-09 12:42] MED LIST changes: +PRED-904 PO
[2025-07-09 12:44] VITALS: TEMP 97.9
--- NOTE | 2025-07-09 13:40 | EKG ---
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
[2025-07-09 13:42] LABS: IMMATURE GRANULOCYTE ABSOLUTE 0.11 K/uL (0-1); NUCLEATED RED BLOOD CELLS 0.0 % (0.0-0.19); PLATELET COUNT (AUTO) 245 K/uL (130-400); RED BLOOD CELL COUNT(AUTO) 3.82 MIL/uL (4.50-6.20); RED CELL DISTRIBUTION WIDTH 13.5 % (11.0-15.5); WHITE BLOOD COUNT (AUTO) 21.9 K/uL (4.8-10.8)
[2025-07-09 13:43] LABS: CREATININE 6.4 mg/dL (0.5-1.3); GLOMERULAR FILTR. RATE CALC 11.0 mL/min (>90); GLUCOSE,RANDOM 158.0 mg/dL (70-105); SODIUM SERUM 133.0 mmol/L (136-145); UREA NITROGEN, BLOOD 37.0 mg/dL (7-18)
[2025-07-09 13:47] LABS: ASPARTATE AMINOTRANSFERASE 24.0 U/L (10-37); TOTAL PROTEIN, SERUM 6.9 g/dL (6.0-8.3)
[2025-07-09] MEDS: MAG/ALUM/SIMETH 30 ML UDCUP PO ONE (14:21)
[2025-07-09] MEDS: LIDOCAINE HCL 2% VISCOUS 15 ML UDCUP PO ONE (14:21)
[2025-07-09] MEDS: DICYCLOMINE HCL 10 MG/5 ML ML PO ONE (14:21)
--- NOTE | 2025-07-09 17:13 | HMCIMG ---
EXAM: CT Abdomen and Pelvis without IV contrast CLINICAL HISTORY: Pain. TECHNIQUE: Thin collimated axial CT images of the abdomen and pelvis were obtained with sagittal and coronal reformatted images also submitted. CT scan done according to ALARA (As Low As Reasonably Achievable). CONTRAST: No. COMPARISON: None. FINDINGS: Unremarkable visualized lung parenchyma. There is no focal abnormality appreciated within the gallbladder, pancreas, spleen, adrenals, or kidneys. Moderate hepatomegaly measuring approximately 21 cm in the craniocaudal span. Suspected mild degree small bowel enteritis. There is no obvious bowel wall thickening. Bowel loops are normal in caliber without evidence of obstruction or ileus. The appendix is normal. The urinary bladder is mildly over distended. Unremarkable re-productive organs. Aorta is normal in caliber. Mild atheromatous wall calcifications of the aorta. No lymphadenopathy. No free fluid. There is no acute osseous abnormality. 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 Small, fat-containing umbilical hernia noted. IMPRESSIONS: No acute process in the abdomen and pelvis. Suspected mild degree small bowel enteritis. Moderate hepatomegaly. The urinary bladder is mildly over distended. 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
[2025-07-09 18:06] LABS: APPEARANCE,URINE CLOUDY (CLEAR); GLUCOSE, URINE (UA) 500 mg/dL (NEGATIVE); LEUKOCYTE ESTERASE ,URINE NEGATIVE Leu/uL (NEGATIVE); NITRATE,URINE NEGATIVE (NEGATIVE); OCCULT BLOOD,URINE MODERATE (NEGATIVE)
[2025-07-09 18:13] LABS: ADD UA MICROSCOPIC YES
[2025-07-09 18:17] LABS: COARSE GRANULAR CASTS,URINE 0-2 /LPF (None Seen); SQUAMOUS EPITHELIAL CELL,UR Rare /HPF (0-2)
[2025-07-09] MEDS ORDERED: FAMO-136 PO (18:28)
--- NOTE | 2025-07-09 18:28 | ERN ---
ED Note History of Present Illness Stated Complaint: N/V, ABD PAIN Chief Complaint: Abdominal Pain Time Seen by MD: 12:49 Time Seen by Midlevel: 12:55 Dictation: 65-year-old male with a history of hypertension and ESRD on dialysis coming in for complaints of vomiting x3 today and feeling weak. Patient did complete his dialysis treatment prior to arriving to the emergency room. Patient states last night he had a MAC rib for dinner. Denies any blood in vomit, denies any melena. Any chest pain or chest discomfort. Allergies: Coded Allergies: No Known Drug Allergies (Unverified Allergy, Unknown, 07/29/22) Home Meds Active Scripts Famotidine (Pepcid) 20 Mg Tablet, 1 TAB PO BID for 30 Days, #60 TAB 0 Refills Prov:NORAH CANAS CNP 07/09/25 Prednisolone (Prednisolone) 5 Mg Tablet, 5 MG PO ONCE for eye swelling for 3 Days, #6 TAB take 2 po once a day by mouth for 3 days Prov:SHAYLA CAT DNP 11/13/22 Metformin HCl (Metformin HCl) 1,000 Mg Tablet, 1000 MG PO BID for 30 Days, #60 TAB 0 Refills Prov:ORA ALVAREZ MD 08/05/22 Amlodipine Besylate (Norvasc 5Mg Tab) 5 Mg Tablet, 5 MG PO DAILY, #30 TAB 0 Refills Prov:ORA ALVAREZ MD 08/05/22 Past Medical History Past Medical History: Diabetes-Type I, Diabetes-Type II, Renal Disese Surgical History: LAVA Surgical History Other: LEFT FOOT ULCER, RT FOOT AMPUTATION Review of System Dictation Constitutional: Negative for fever,chills, and weight loss Eyes: Negative for injury, pain,redness, and discharge ENT: Negative for injury,pain or swelling Cardiovascular: Negative for chest pain, palpitations, and edema Respiratory: Negative for shortness of breath, cough, and wheezing, Abdomen/GI: Complaining of epigastric pain with nausea and vomiting Back: Negative for injury and pain : Negative for injury, bleeding and discharge MS/Extremity: Negative for injury and deformity Skin: Negative for rash, and discoloration Neuro: Negative for headache, weakness, numbness, tingling, and seizure Psych: Negative for suicide ideation, homicidal ideation, and hallucinations Review of Systems: was completed Initial Vital Sign VS Vital Signs Date Time Temp Pulse Resp B/P (MAP) Pulse Ox O2 Delivery O2 Flow Rate FiO2 07/09/25 12:44 97.9 90 16 113/63 99 Room Air 0 07/09/25 15:59 21 Physical Exam Dictation General: awake, alert, NAD Head/Face: Normocephalic, atraumatic Eyes: PERRL, EOMI, vision at baseline ENT: oral cavity clear, TMs clear, no signs of infection Neck: Trachea midline, supple, no nuchal rigidity Cardiovascular: RRR, normal S1/S2, No MRGs, no JVD Respiratory: CTAB, no respiratory distress, No rales or wheezes Abdomen: Soft, non-tender, non-distended, normal bowel sounds, no guarding or rebound. Skin: Warm, dry, normal turgor, no rash MS/Extremity: Pulses equal, no cyanosis, neurovascular intact, FROM Neuro: COAx4, GCS 15, strength 5/5, CN 2-12 intact, normal cerebellar exam, normal gait, Psych: Normal behavior, mood, and affect normal Results (Laboratory/Radiology) Laboratory/Radiology Laboratory Tests Test 07/09/25 13:30 07/09/25 15:16 07/09/25 17:48 White Blood Count 21.9 K/uL (4.8-10.8) H Red Blood Count 3.82 MIL/uL (4.50-6.20) L Hemoglobin 11.9 g/dL (14.0-18.0) L Hematocrit 35.1 % (42-54) L Mean Corpuscular Volume 91.9 fL (79-99) Mean Corpuscular Hemoglobin 31.2 pg (27.0-33.0) Mean Corpuscular Hemoglobin Concent 33.9 g/dL (32.0-36.0) Red Cell Distribution Width 13.5 % (11.0-15.5) Platelet Count 245 K/uL (130-400) Mean Platelet Volume 9.5 fL (7.5-10.5) Immature Granulocyte % (Auto) 0.5 % (0-1) Neutrophils (%) (Auto) 94.2 % (40.0-77.0) H Lymphocytes (%) (Auto) 2.1 % (21.0-51.0) L Monocytes (%) (Auto) 2.9 % (3.0-13.0) L Eosinophils (%) (Auto) 0.0 % (0.0-8.0) Basophils (%) (Auto) 0.3 % (0.0-5.0) Neutrophils # (Auto) 20.6 K/uL (1.8-7.7) H Lymphocytes # (Auto) 0.5 K/uL (1.0-4.8) L Monocytes # (Auto) 0.6 K/uL (0.1-1.0) Eosinophils # (Auto) 0.01 K/uL (0.00-0.70) Basophils # (Auto) 0.07 K/uL (0.00-0.20) Absolute Immature Granulocyte (auto 0.11 K/uL (0-1) Nucleated Red Blood Cells 0.0 % (0.0-0.19) White Cell Morphology Comment See comments Sodium Level 133 mmol/L (136-145) L Potassium Level 4.1 mmol/L (3.5-5.1) Chloride Level 91 mmol/L (101-111) L Carbon Dioxide Level 33 mmol/L (21-32) H Blood Urea Nitrogen 37 mg/dL (7-18) H Creatinine 6.4 mg/dL (0.5-1.3) H Glomerular Filtration Rate Calc 11 mL/min (>90) Random Glucose 158 mg/dL (70-105) H Total Calcium 7.3 mg/dL (8.5-10.1) L Total Bilirubin 0.5 mg/dL (0.2-1.0) Direct Bilirubin 0.1 mg/dL (0.0-0.3) Aspartate Amino Transf (AST/SGOT) 24 U/L (10-37) Alanine Aminotransferase (ALT/SGPT) 19 U/L (12-78) Alkaline Phosphatase 103 U/L (50-136) Total Protein 6.9 g/dL (6.0-8.3) Albumin 2.7 g/dL (3.5-5.0) L Lipase 17 U/L (16-77) Lactic Acid Level 1.6 mmol/L (0.8-2.5) Urine Color LIGHT-YELLOW (YELLOW) Urine Appearance CLOUDY (CLEAR) H Urine pH 6.5 (5.0-8.0) Urine Specific [place] 1.023 (1.001-1.031) Urine Protein 600 mg/dL (NEGATIVE) H Urine Glucose (UA) 500 mg/dL (NEGATIVE) H Urine Ketones NEGATIVE mg/dL (NEGATIVE) Urine Occult Blood MODERATE (NEGATIVE) H Urine Nitrate NEGATIVE (NEGATIVE) Urine Bilirubin NEGATIVE mg/dL (NEGATIVE) Urine Urobilinogen 0.2 mg/dL (0.2-1.0) Urine Leukocyte Esterase NEGATIVE [place]/uL Urine RBC 0-1 /HPF (0-1) Urine WBC 2-5 /HPF (0-1) H Urine Squamous Epithelial Cells Rare /HPF (0-2) Urine Amorphous Crystals (Auto) Few /LPF (None Seen) H Urine Bacteria Few /HPF (None Seen) Urine Hyaline Casts 2-5 /LPF (0-1 /LPF) H Urine Coarse Granular Casts 0-2 /LPF (None Seen) H Labs Reviewed?: Yes EKG Comment: PD were done at 1:34 p.m.. Sinus rhythm. Rate 85. No STEMI interpreted by ER MD CT Scan Comment: [id number] [place] [address] [id number] IMAGING REPORT Signed PATIENT: BO FELDMAN MR#: [id number] : 1990 SEX: M AGE: 35 LOCATION: [facility] ORDER [id number] STATUS: REG ER REPORT#: [id number] SERVICE 1506 REASON: abdominal pain ORDERING PHYSICIAN: NORAH CANAS CNP PROCEDURE: ABD PEL WO - CT ABDOMEN/PELVIS W/O CONTRAST EXAM: CT Abdomen and Pelvis without IV contrast CLINICAL HISTORY: Pain. TECHNIQUE: Thin collimated axial CT images of the abdomen and pelvis were obtained with sagittal and coronal reformatted images also submitted. CT scan done according to ALARA (As Low As Reasonably Achievable). CONTRAST: No. COMPARISON: None. FINDINGS: Unremarkable visualized lung parenchyma. There is no focal abnormality appreciated within the gallbladder, pancreas, spleen, adrenals, or kidneys. Moderate hepatomegaly measuring approximately 21 cm in the craniocaudal span. Suspected mild degree small bowel enteritis. There is no obvious bowel wall thickening. Bowel loops are normal in caliber without evidence of obstruction or ileus. The appendix is normal. The urinary bladder is mildly over distended. Unremarkable re-productive organs. Aorta is normal in caliber. Mild atheromatous wall calcifications of the aorta. No lymphadenopathy. No free fluid. There is no acute osseous abnormality. 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 Small, fat-containing umbilical hernia noted. IMPRESSIONS: No acute process in the abdomen and pelvis. Suspected mild degree small bowel enteritis. Moderate hepatomegaly. The urinary bladder is mildly over distended. 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 /[place] DICTATED BY: ELZA TRIVEDI Jr., MD DATE: 07/09/251812 ELECTRONICALLY SIGNED BY: ELZA TRIVEDI Jr., MD DATE: 07/09/251812 ED Course ED Course Orders Procedure Category Date Status Time Cbc With Differential LAB 07/09/25 Complete 13:18 Basic Metabolic Panel LAB 07/09/25 Complete 13:18 Hepatic Function Panel LAB 07/09/25 Complete 13:18 Lipase LAB 07/09/25 Complete 13:18 Lidocaine Hcl 2% PHA 07/09/25 Complete Viscous (Lidocaine Hcl 13:30 Mag/Alum/Simeth 30ml PHA 07/09/25 Complete (Maalox Plus 30ml) 13:30 Dicyclomine Hcl PHA 07/09/25 Complete (Bentyl 10mg/5ml 13:30 Ondansetron Odt 4mg PHA 07/09/25 Complete Tab (Zofran 4mg Odt) 13:30 12 Lead Ekg Tracing- EKG 07/09/25 Complete Technical 13:18 Ct Abdomen/Pelvis W/O CT 07/09/25 Resulted Contrast 15:06 Urinalysis Profile LAB 07/09/25 Complete 15:06 Lactic Acid LAB 07/09/25 Complete 15:06 Blood Cult IRAIS 07/09/25 In Process 15:06 Current Medications Medications (Trade) Dose Ordered Sig/Jeff Route PRN Reason Start Time Stop Time Status Last Admin Dose Admin Al Hydroxide/Mg Hydroxide (MAALox PLUS 30ML) 30 ml ONCE ONCE PO 07/09/25 13:30 07/09/25 13:31 DC 07/09/25 14:21 Dicyclomine HCl (Bentyl 10mg/5ml Syrup) 10 mg ONCE ONCE PO 07/09/25 13:30 07/09/25 13:31 DC 07/09/25 14:21 Lidocaine HCl (Lidocaine HCl 2% Viscous) 10 ml ONCE ONCE PO 07/09/25 13:30 07/09/25 13:31 DC 07/09/25 14:21 Ondansetron HCl (zoFRAN 4MG ODT) 4 mg ONCE ONCE SL 07/09/25 13:30 07/09/25 13:31 DC 07/09/25 14:21 Vital Signs Date Time Temp Pulse Resp B/P (MAP) Pulse Ox O2 Delivery O2 Flow Rate FiO2 07/09/25 17:06 93 17 132/65 95 Room Air* 0 21 07/09/25 15:59 94 16 154/95 96 Room Air* 0 21 07/09/25 12:44 97.9 90 16 113/63 99 Room Air 0 Medical Decision Making MDM MDM: 65-year-old male with a history of hypertension and ESRD on dialysis coming in for complaints of vomiting x3 today and feeling weak. Patient did complete his dialysis treatment prior to arriving to the emergency room. Patient states last night he had a MAC rib for dinner. Denies any blood in vomit, denies any melena. Any chest pain or chest discomfort.CBC shows white count of 21, normocytic anemia hemoglobin of 11 and hematocrit of 35. This is most likely consistent with the patient's history of ESRD. UA shows hyponatremia at 133, potassium is 4.1. Creatinine of 6.4 and BUN of 37 consistent with the patient's history of ESRD. No transaminitis. Lipase within normal range. T bili within normal range. UA shows proteinuria and glucosuria consistent with known ESRD and diabetes. No leukocyte esterase no nitrites, minimal WBC and bacteria making UTI less likely. CT scan shows small bowel enteritis. Discussed with the patient's more than likely this is was causing his abdominal pain and nausea and vomiting. It also explained to elevated WBC count. We will prescribe patient has not take it home and educated on diet to follow up. Differential diagnosis: Pancreatitis, gastroenteritis, Rationale: Tests considered and ordered secondary to shared decision making include: Previous outside records reviewed: Old ER visits. Risk of complication and/or morbidity or mortality of patient management: None Medications-Per medication reconciliation Need for hospitalization: Patient does not meet criteria for hospitalization. Need for emergency major/minor surgery: No There are no social concerns with this patient. Prescription drug management Prescriptions will include symptomatic care Patient's prior external medical records from other ER visits were reviewed by me as indicated. Prior testing and results from previous visits were reviewed. Prior tests were taken into account with medical decision making and resource utilization, independent historian/historians were used to obtain complete medical history. I independently interpreted the test that were performed, results were reviewed by me and considered findings on radiology if ordered. Medical management and examination interpretation discussions were had by me with other qualified healthcare professionals as indicated for the patient's care. DX & DISP Disposition: Discharge Departure Impression: Primary Impression: Enteritis Condition: Stable Scripts Famotidine (Pepcid) 20 Mg Tablet 1 TAB PO BID for 30 Days, #60 TAB 0 Refills Prov: NORAH CANAS CNP 07/09/25 Additional Instructions: Spicy, greasy, fatty foods. Keep your ESRD appointments. Return to the hospital if you develop severe abdominal pain with the nausea and vomiting unable to keep any food or fluids down. Referrals: JOSEPH CARLSON MD (PCP) Time of Disposition: 18:27 I have reviewed the case, and I agree with, Diagnosis and Plan NORAH CANAS CNP Jul 09, 2025 18:28
[2025-07-09 18:35] VITALS: BP 149/79; PULSE 97; RESP 17; O2SAT 97
== END 2025-07-09 18:44 | disposition home or self-care (01) ==
LOC: EDH 12:42
DX: K52.9 Noninfective gastroenteritis and colitis, unspecified (principal); E10.9 Type 1 diabetes mellitus without complications; Z79.84 Long term (current) use of oral hypoglycemic drugs; Z79.899 Other long term (current) drug therapy
CPT/HCPCS: 36415; 74176; 80048; 80076; 81001; 83605; 83690; 85025; 87040; 87086; 87186; 93005; 99284

== ENCOUNTER 2025-07-13 12:13 | Inpatient (IN) | payer OTHER ==
[~2025-07-13] VITALS: Ht 167.6 cm; Wt 75.4 kg
[2025-07-13] MEDS ORDERED: VANCOMYCIN PROTOCOL PER PHARMACY IV SCH (12:30)
--- NOTE | 2025-07-13 12:37 | EKG ---
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
[2025-07-13 12:45] LABS: IMMATURE GRANULOCYTE ABSOLUTE 0.18 K/uL (0-1); NUCLEATED RED BLOOD CELLS 0.0 % (0.0-0.19); PLATELET COUNT (AUTO) 153 K/uL (130-400); RED BLOOD CELL COUNT(AUTO) 3.51 MIL/uL (4.50-6.20); RED CELL DISTRIBUTION WIDTH 13.2 % (11.0-15.5); WHITE BLOOD COUNT (AUTO) 18.3 K/uL (4.8-10.8)
[2025-07-13 12:57] LABS: GLOMERULAR FILTR. RATE CALC 7.0 mL/min (>90); GLUCOSE,RANDOM 153.0 mg/dL (70-105); LACTATE DEHYDROGENASE 319.0 U/L (81-234); SODIUM SERUM 132.0 mmol/L (136-145); UREA NITROGEN, BLOOD 47.0 mg/dL (7-18)
[2025-07-13] MEDS: 0.9%NACL 1000ML 1,000 ML IV ONE (13:04)
[2025-07-13] MEDS: ZOSYN 3.375GM +NS 50ML IV ONE (13:05)
[2025-07-13] MEDS: VANCOMYCIN 1G/250ML KIT 250 ML IV ONE (13:05)
[2025-07-13 13:08] LABS: CREATININE 8.8 mg/dL (0.5-1.3)
--- NOTE | 2025-07-13 14:09 | HMCIMG ---
CLINICAL INFORMATION Fever COMPARISON None. TECHNIQUE Frontal view chest. FINDINGS Lines and tubes: Dual-lumen right internal jugular central venous catheter tip overlies the right atrium. Lungs: Clear. Pleura: Unremarkable. No effusion or pneumothorax. Cardiomediastinal Silhouette: Unremarkable. Bones: Normal for age. Soft Tissues: Normal. IMPRESSION No acute pulmonary findings. Dual-lumen right internal jugular central venous catheter tip overlies the right atrium. /[place]
--- NOTE | 2025-07-13 14:27 | ERN ---
General Chief Complaint: Sepsis Stated Complaint: WEAKNESS,LOW BP,SEPSIS Time Seen by MD: 12:20 Source: patient History of Present Illness Initial Comments Patient is a 35-year-old complaining of generalized body weakness and fever. Patient states that he was seen by his PCP sent over due to the presentation and abnormal labs that he presented with in office. Patient does has a history of end-stage renal disease. 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 07/09/25 Prednisolone (Prednisolone) 5 Mg Tablet, 5 MG PO ONCE for eye swelling for 3 Days, #6 TAB take 2 po once a day by mouth for 3 days Prov:SHAYLA CAT [facility] 11/13/22 Metformin HCl (Metformin HCl) 1,000 Mg Tablet, 1000 MG PO BID for 30 Days, #60 TAB 0 Refills Prov:ORA ALVAREZ MD 08/05/22 Amlodipine Besylate (Norvasc 5Mg Tab) 5 Mg Tablet, 5 MG PO DAILY, #30 TAB 0 Refills Prov:ORA ALVAREZ MD 08/05/22 Past Medical History Past Medical History: Diabetes-Type I, Diabetes-Type II, Renal Disese, Renal Failure Past Surgical History: LAVA Surgical History Other: LEFT FOOT ULCER, RT FOOT AMPUTATION ROS Dictation CONSTITUTIONAL: No chills, no fever, no weakness, no diaphoresis, no malaise. HEAD/FACE: No signs of trauma. EENT: No eye pain, no blurred vision, no tearing, no double vision, no ear pain, no ear discharge, no nose pain, no nasal congestion, no throat pain, no throat swelling, no mouth pain. RESPIRATORY: No cough, no orthopnea, no SOB, no stridor, no wheezing. CARDIOVASCULAR: No chest pain, no edema, no palpitations, no syncope. GASTROINTESTINAL/ABDOMINAL: No abdominal pain, no constipation, no diarrhea, no nausea, no vomiting. GENITOURINARY: No abnormal discharge, no dysuria, no frequent urination, no hematuria. No complaints of pain in the genitals. MUSCULOSKELETAL: No back pain, no gout, no joint pain, no joint swelling, no muscle pain, no muscle stiffness, no neck pain. INTEGUMENTARY: No change in color, no change in hair/nails, no dryness, no lesion, no lumps, no rash. NEUROLOGICAL/PSYCH: No anxiety, not depressed, no emotional problem, no headache, no numbness, no pre-existing deficit, no history of seizures, no tremors, no weakness. HEMATOLOGIC/LYMPHATIC: Not anemic, no history of blood clots, no apparent bleeding, no bruising, glands not swollen. All Systems Negative, Except as Noted. Physical Exam Physical Exam Dictation VITAL SIGNS: Reviewed. GENERAL APPEARANCE: Alert, oriented x3, no acute distress, obese. HEAD AND FACE: Non-traumatic. EYES: PERRL, pink conjunctivas, eyelid no trauma, anterior chamber clear. EARS: Pinnas intact and no signs of trauma or erythema. Ear canals clear and no discharge. TMs no erythema. NOSE: No discharge, no bleeding. OROPHARYNX: Mouth normal, teeth no caries, tongue pink. Pharynx clear, no erythema. Tonsils no exudates, no abscesses noted. Mucous membrane moist. NECK: Supple, non-tender, no thyromegaly, no masses, no JVD, no bruits. BREAST: Deferred. CHEST: No tenderness, no crepitus, no paradoxical movement, no retractions. LUNGS: Clear, well-ventilated, symmetric, no rales, no wheezing, no rhonchi, no stridor, good breath sounds bilaterally. HEART: Regular rate, regular rhythm, no murmur, no gallops. VASCULAR: No peripheral edema. ABDOMEN: Soft, positive bowel sounds, nondistended, no guarding, nontender, no rebound, no masses no hepatomegaly, no splenomegaly, no Nguyen's sign, no hernias. RECTAL: Deferred. GENITAL: Deferred. NEUROLOGICAL: Normal speech, gross motor function intact, gross sensory funct ion intact. MUSCULOSKELETAL: Neck nontender, full range of motion, back nontender, full range of motion. EXTREMITIES: Nontender, full range of motion. SKIN: Color pink, dry, no turgor, no rash, no lacerations, no abrasions, no contusions. LYMPHATICS: Deferred. Results Laboratory and Microbiology Lab and Micro Result Laboratory Tests Test 12/5/25 12:38 White Blood Count 18.3 K/uL (4.8-10.8) H Red Blood Count 3.51 MIL/uL (4.50-6.20) L Hemoglobin 10.7 g/dL (14.0-18.0) L Hematocrit 32.7 % (42-54) L Mean Corpuscular Volume 93.2 fL (79-99) Mean Corpuscular Hemoglobin 30.5 pg (27.0-33.0) Mean Corpuscular Hemoglobin Concent 32.7 g/dL (32.0-36.0) Red Cell Distribution Width 13.2 % (11.0-15.5) Platelet Count 153 K/uL (130-400) Mean Platelet Volume 9.8 fL (7.5-10.5) Immature Granulocyte % (Auto) 1.0 % (0-1) Neutrophils (%) (Auto) 92.6 % (40.0-77.0) H Lymphocytes (%) (Auto) 2.5 % (21.0-51.0) L Monocytes (%) (Auto) 3.6 % (3.0-13.0) Eosinophils (%) (Auto) 0.1 % (0.0-8.0) Basophils (%) (Auto) 0.2 % (0.0-5.0) Neutrophils # (Auto) 17.0 K/uL (1.8-7.7) H Lymphocytes # (Auto) 0.5 K/uL (1.0-4.8) L Monocytes # (Auto) 0.7 K/uL (0.1-1.0) Eosinophils # (Auto) 0.01 K/uL (0.00-0.70) Basophils # (Auto) 0.04 K/uL (0.00-0.20) Absolute Immature Granulocyte (auto 0.18 K/uL (0-1) Nucleated Red Blood Cells 0.0 % (0.0-0.19) Sodium Level 132 mmol/L (136-145) L Potassium Level 4.0 mmol/L (3.5-5.1) Chloride Level 91 mmol/L (101-111) L Carbon Dioxide Level 29 mmol/L (21-32) Blood Urea Nitrogen 47 mg/dL (7-18) H Creatinine 8.8 mg/dL (0.5-1.3) *H Glomerular Filtration Rate Calc 7 mL/min (>90) Random Glucose 153 mg/dL (70-105) H Lactic Acid Level 1.6 mmol/L (0.8-2.5) Total Calcium 6.9 mg/dL (8.5-10.1) L Lactate Dehydrogenase 319 U/L (81-234) H Troponin I High Sensitivity 47 ng/L (4-75) Labs Reviewed?: Yes EKG/XRAY/US/CT/MRI X-RAY Comment IMAGING REPORT Signed PATIENT: BO FELDMAN MR#: [id number] : 1990 SEX: M AGE: 35 LOCATION: [facility] ORDER 20 STATUS: [facility] ER REPORT#: [id number] SERVICE 132 REASON: fever ORDERING PHYSICIAN: FAIZAN SMITH MD PROCEDURE: CXR1VW - CHEST 1VW CLINICAL INFORMATION Fever COMPARISON None. TECHNIQUE Frontal view chest. FINDINGS Lines and tubes: Dual-lumen right internal jugular central venous catheter tip overlies the right atrium. Lungs: Clear. Pleura: Unremarkable. No effusion or pneumothorax. Cardiomediastinal Silhouette: Unremarkable. Bones: Normal for age. Soft Tissues: Normal. IMPRESSION No acute pulmonary findings. Dual-lumen right internal jugular central venous catheter tip overlies the right atrium. /[place] DICTATED BY: NAPOLEON HAYES MD DATE: 07/13/251506 ELECTRONICALLY SIGNED BY: NAPOLEON HAYES MD DATE: 07/13/251506 [facility] MDM: Differential diagnosis: Sepsis, end-stage renal disease on dialysis, Rationale: Tests considered and ordered secondary to shared decision making include: Previous outside records reviewed: Old ER visits. Risk of complication and/or morbidity or mortality of patient management: None Medications-Per medication reconciliation Need for hospitalization: Patient does meet criteria for hospitalization. Need for emergency major/minor surgery: No There are no social concerns with this patient. Prescription drug management Prescriptions will include symptomatic care Patient's prior external medical records from other ER visits were reviewed by me as indicated. Prior testing and results from previous visits were reviewed. Prior tests were taken into account with medical decision making and resource utilization, independent historian/historians were used to obtain complete medical history. I independently interpreted the test that were performed, results were reviewed by me and considered findings on radiology if ordered. Medical management and examination interpretation discussions were had by me with other qualified healthcare professionals as indicated for the patient's c are. Patient has been here of hospitalist group ED Course Orders Procedure Category Date Status Time Cbc With Differential LAB 07/13/25 Complete 12: Troponin I High LAB 07/13/25 Complete Sensitivity 12:21 Urinalysis Profile LAB 07/13/25 Logged 12: Occult Blood Stool LAB 07/13/25 Logged Single Only 12:21 12 Lead Ekg Tracing- EKG 07/13/25 Complete Technical 12:21 0.9%Nacl 1000ml (Ns PHA 07/13/25 Complete 1000ml) 12:30 Acetaminophen 325 Tab PHA 07/13/25 Complete (Tylenol 325mg Tab 12:30 Ondansetron 4mg Inj PHA 07/13/25 Complete (Zofran 4mg Inj) 12:30 Zosyn 3.375gm+Ns 50ml PHA 07/13/25 Complete (Zosyn 3.375gm+Ns 13:00 Basic Metabolic Panel LAB 07/13/25 Complete 12:21 Vancomycin Protocol PHA 07/13/25 In Process (Vancomycin Protocol 12:30 Vancomycin 1g/250ml PHA 07/13/25 In Process Kit (Vancomycin 1g/2 13:00 Blood Cult IRAIS 07/13/25 In Process 12:33 Lactic Acid LAB 07/13/25 Complete 12:38 Lactate Dehydrogenase LAB 07/13/25 Complete 12:38 Vancomycin 500mg+Ns PHA 07/16/25 In Process 100ml (Vancomycin 50 16:00 Vancomycin Trough LAB 07/18/25 Verified 05:00 Chest 1vw RAD 07/13/25 Resulted 13:20 Current Medications Medications (Trade) Dose Ordered Sig/Jeff Route PRN Reason Start Time Stop Time Status Last Admin Dose Admin Acetaminophen (TYLenol 325MG TAB) 650 mg ONCE ONCE PO 07/13/25 12:30 07/13/25 12:32 DC 07/13/25 13:05 Ondansetron HCl (zoFRAN 4MG INJ) 4 mg ONCE ONCE IVP 07/13/25 12:30 07/13/25 12:32 DC 07/13/25 13:04 Piperacillin Sod/ Tazobactam Sod (Zosyn 3.375gm+NS 50ml) 3.375 gm ONCE ONCE IV 07/13/25 13:00 07/13/25 13:01 DC 07/13/25 13:05 Sodium Chloride 1,000 ml @ 0 mls/hr ONCE ONCE IV 07/13/25 12:30 07/13/25 12:32 DC 07/13/25 13:04 Vancomycin HCl 100 ml @ 100 mls/hr [id number][DIALYSIS] IV 07/16/25 16:00 07/26/25 15:59 Vancomycin HCl 250 ml @ 125 mls/hr ONCE ONCE IV 07/13/25 13:00 07/13/25 14:59 07/13/25 13:05 Vancomycin HCl (Vancomycin Protocol) 1 each AD IV 07/13/25 12:30 07/27/25 12:29 Vital Signs Date Time Temp Pulse Resp B/P (MAP) Pulse Ox O2 Delivery O2 Flow Rate FiO2 07/13/25 13:12 101.1 102 17 133/68 99 Room Air* 0 21 07/13/25 13:05 101.7 07/13/25 12:16 101.7 90 24 100/49 94 Room Air DX & DISP Disposition: Inpatient Decision to Admit Time: 14:45 Departure Impression: Primary Impression: Sepsis Additional Impression: End stage renal disease on dialysis Condition: Stable Referrals: JOSEPH CARLSON MD (PCP) FAIZAN SMITH MD Jul 13, 2025 14:27
[2025-07-13] MEDS ORDERED: GLUCAGON 1MG KIT 1 MG ML IM PRN (15:30)
[2025-07-13] MEDS ORDERED: RENAL DOSE IV SCH (15:30)
[2025-07-13] MEDS ORDERED: DEXTROSE 50%-WATER 50 ML DISP.SYRIN IV PRN (15:30)
[2025-07-13 15:38] LABS: ASPARTATE AMINOTRANSFERASE 28.0 U/L (10-37); TOTAL PROTEIN, SERUM 6.5 g/dL (6.0-8.3)
--- NOTE | 2025-07-13 16:20 | HMCIMG ---
EXAM: CT Head Without IV contrast. CLINICAL HISTORY: sepsis, generalized weakness TECHNIQUE: Axial computed tomography images of the head/brain without intravenous contrast. COMPARISON: None provided. FINDINGS: BRAIN: No evidence of acute hemorrhage. No mass lesion. No CT evidence for acute territorial infarct. No midline shift or extra-axial collections. VENTRICLES: No hydrocephalus. ORBITS: The orbits are unremarkable. SINUSES AND MASTOIDS: The paranasal sinuses and mastoid air cells are clear. BONES: No fracture. SOFT TISSUES: Unremarkable. IMPRESSION: 1. No acute intracranial findings. /[place]
--- NOTE | 2025-07-13 16:32 | HMCIMG ---
STUDY CT Abdomen and Pelvis Without IV contrast. HISTORY Sepsis with gram-negative bacteremia; history of enteritis and end-stage renal disease. TECHNIQUE Axial computed tomography images of the abdomen and pelvis were obtained without intravenous contrast. COMPARISON CT Abdomen/Pelvis Without Contrast 07/09/2025 15:32 EST. FINDINGS LUNG BASES Peripheral ground-glass opacities with small nodular infiltrates are present in the bilateral lower lobes. Mild chronic dependent interstitial changes are seen in the bilateral posterobasal lungs, without rena consolidation or pleural effusion. LIVER AND BILIARY SYSTEM The liver is enlarged, measuring approximately 17 cm in craniocaudal dimension, with decreased attenuation compatible with hepatic steatosis. No focal hepatic mass or biliary ductal dilatation is identified. The gallbladder is unremarkable without calcified gallstones. PANCREAS The pancreas is normal in size and contour without peripancreatic inflammatory change. SPLEEN The spleen is normal in size and attenuation without focal lesion. ADRENAL GLANDS The adrenal glands are normal in size and morphology. KIDNEYS, URETERS, AND BLADDER Both kidneys demonstrate mildly bulky cortices, more pronounced on the left. No hydronephrosis, hydroureter, or radiopaque urinary calculus is identified. At the level of the left renal hilum, left para-aortic/renal hilar lymph nodes are present, measuring up to approximately 1.6 1.0 cm. The urinary bladder shows mild diffuse wall thickening with subtle perivesical fat stranding, suggestive of mild cystitis. No intraluminal gas or calculus is seen. STOMACH AND BOWEL The stomach and bowel are normal in caliber without evidence of obstruction. No abnormal small-bowel wall thickening is seen on the current study. Previously described mild small-bowel enteritis on the comparison CT has improved and is not evident now. No colitis or pneumatosis is identified. APPENDIX The appendix is visualized and appears normal without periappendiceal inflammation. PERITONEUM AND MESENTERY No free intraperitoneal air or free fluid is demonstrated. No mesenteric inflammatory mass or collection is seen. LYMPH NODES Apart from the mildly enlarged left para-aortic/renal hilar nodes described above, no additional pathologic abdominopelvic lymphadenopathy is identified. REPRODUCTIVE ORGANS The prostate is enlarged, with an estimated volume of approximately 37 cc. VASCULATURE The abdominal aorta is normal in caliber without aneurysm. No obvious thrombosis is identified on this non-contrast study. ABDOMINAL WALL AND BONES A small umbilical hernia with approximately 1 cm fascial defect contains fat only, without strangulation. No acute or aggressive osseous lesion is seen. IMPRESSION * Mildly bulky renal cortices bilaterally, more pronounced on the left, with mildly enlarged left para-aortic/renal hilar lymph nodes and associated mild bladder wall thickening and perivesical fat stranding, raising concern for bilateral but left-predominant upper urinary tract infection/pyelonephritis with cystitis in the setting of gram-negative bacteremia; correlate with urinalysis, cultures, and renal function. * Hepatomegaly with hepatic steatosis and prostatomegaly; small fat-containing umbilical hernia without complication. * Peripheral ground-glass nodular opacities and mild chronic dependent interstitial changes in the bilateral lower lungs, which may reflect mild inflammatory/infectious or volume-related changes; no focal consolidation or effusion. * Interval resolution of previously described mild small-bowel enteritis on the comparison CT of 07/09/2025; no current CT evidence of enteritis, colitis, bowel obstruction, or acute intra-abdominal collection. /[place]
[2025-07-13] MEDS: THIAMINE HCL 100 MG/ML 2ML VIAL IVP SCH (17:11)
--- NOTE | 2025-07-13 17:15 | NUR ---
Pt has not been able to provide urine yet.
--- NOTE | 2025-07-13 17:29 | NUR ---
Report given to Garrett AVALOS.
[2025-07-13 17:56] VITALS: BP 109/66; PULSE 85; RESP 18; TEMP 98.2
[2025-07-13 18:20] VITALS: O2SAT 92
--- NOTE | 2025-07-13 18:27 | HP ---
[facility] H[facility]ORY [facility] PHYS[facility] Date of Service: Jul 13, 2025 Time of Service: 18:17 HISTORY OF PRESENT ILLNESS: Date of service: 07/13/2025, patient was seen in ER room 19 This is a young 35-year-old male with underlying history of hypertension, type 2 diabetes mellitus, ESRD on Wednesday, Wednesday, Wednesday hemodialysis, history of left arm AV fistula, history of dialysis catheter placement to the right chest, presented to the ER for further evaluation of generalized debility, malaise, fevers ongoing for the past 4-5 days. Patient states that he has been having nausea with poor oral intake. Reports that he was recently seen in the emergency room in [facility] [place] on 07/09/2025 after he presented with nausea and vomiting. Patient on further workup was [place] [id number]. Patient underwent further workup with CT of the abdomen pelvis without IV contrast which showed small bowel enteritis. Patient was discharged from ER on 07/09/2025 with symptomatic management. Patient denies being given antibiotics on discharge. Patient states that he has continued to do poorly. On review of labs from 07/09/2025, blood culture was positive for Gram-negative rods with Enterobacter agglomerans which was pansensitive. Patient reports that he continues to do poorly and has been having fevers daily. He does report having small amount of urine output. Denies having significant dysuria. Patient was supposed to have hemodialysis today with dialysis could not be completed due to hypotension with girlfriend reporting that patient had systolic blood pressure in the 50s. Patient followed up with his PCP where he was found to have blood pressure in the 70s/50s. On presentation to the hospital, [place] [id number] with hemoglobin of 10.7, platelet count of 153,000. Patient did present with fever of 101.7 F, heart rate of 102, blood pressure 133/68. BMP showed sodium of 132, potassium 4.0, chloride of 91, BUN of 47, creatinine of 8.8, total calcium was 6.9 POA Patient will be admitted for further treatment and management of Gram-negative sepsis with history of right chest dialysis catheter placement. Family reports that dialysis catheter is pending to be removed later this month in [place]. Outpatient dialysis center has been using left arm AV fistula for dialysis since June. Patient's case was discussed with Interventional Radiology with Dr. Alfredo who is unavailable until Wednesday in [facility] [place] for removal of dialysis catheter which could be a source of Gram-negative sepsis. I spoke with Dr. Prado with Nephrology, who is patient's primary head of human resources, about patient's case, who agrees with removal of dialysis catheter as soon as possible, as Interventional Radiology is not available in [facility] [place], I spoke with Dr. Torres with surgery who is available to assist with removal of dialysis catheter which will be done medical billing specialist tomorrow. Patient will be monitored closely, keep patient in cardiac telemetry floor, blood pressure and hemodynamics will be monitored closely. REVIEW OF SYSTEMS CONSTITUTIONAL: reports having fevers, chills, malaise, asthenic for several days NEUROLOGICAL: Denies headache, amaurosis fugax, motor weakness, sensory deficit, vertigo/spinning sensation, gait abnormalities, or tremors. ENT: No hearing loss, otalgia, otorrhea, rhinitis, rhinorrhea, hoarseness, or sore throat. CARDIOVASCULAR: Denies any exertional angina, dyspnea on exertion, orthopnea, paroxysmal nocturnal dyspnea, palpitations, life-threatening arrhythmias, claudication. PULMONARY: Denies any shortness of breath, cough, phlegm/sputum, hemoptysis, pleuritic chest pain. SLEEP: Denies morning headaches, daytime somnolence or napping. Denies difficulty falling asleep, staying asleep, waking from sleep. Denies knowledge of snoring. GASTROINTESTINAL: nausea, vomiting, poor pral intake for several days GENITOURINARY: Denies frequency, urgency, nocturia, hematuria or incontinence (Storage/Irritative symptoms.) Low urinary stream, straining to void, urinary intermittency or hesitancy, splitting of the voiding stream, terminal dribbling. ENDOCRINOLOGIC: Denies polyuria, polydipsia, polyphagia or heat/cold intolerances. HEMATOLOGIC: Denies thrombophilia/previous clots, or coagulopathy/bleeding disorders. ONCOLOGIC: Denies personal history of malignancy. DERMATOLOGIC: Denies rashes or pruritus. PSYCHIATRIC: Denies any suicidal or homicidal ideation. Denies hallucinations. 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 Motor is 5/5 in bilateral upper and lower extremities proximal to distal. No sensory deficits. HEENT: Face is symmetric. Pupils are equal and reactive. Extraocular movements are intact. NECK: Supple. No JVD. No thyromegaly. No submental, submandibular, pre- /postauricular, occipital or supraclavicular lymphadenopathy. CHEST: Normal chest expansion. No Telemetry. LUNGS: Absence of any rales, rhonchi or any wheezing. CARDIOVASCULAR: Regular. S1 and S2 normal. No appreciable rubs, murmurs or gallops. ABDOMEN: Soft, nontender, and nondistended. There is no rebound, voluntary guarding, or rigidity. : Deferred. No Millan. EXTREMITIES: Fistula noted of the left arm with thrill and bruit Vital Sign (Last 24 Hours) 07/13/25 07/13/25 16:12 17:56 Temp 98.2 Pulse 85 Resp 18 B/P (MAP) 109/66 Pulse Ox 92 O2 Delivery Room Air O2 Flow Rate 0 FiO2 21 LABS: Laboratory: Test 07/13/25 15:14 07/13/25 12:38 Range/Units Whole Blood Glucose 181 H 70-110 MG/DL White Blood Count 18.3 H 4.8-10.8 K/uL Red Blood Count 3.51 L 4.50-6.20 MIL/uL Hemoglobin 10.7 L 14.0-18.0 g/dL Hematocrit 32.7 L 42-54 % Mean Corpuscular Volume 93.2 79-99 fL Mean Corpuscular Hemoglobin 30.5 27.0-33.0 pg Mean Corpuscular Hemoglobin Concent 32.7 32.0-36.0 g/dL Red Cell Distribution Width 13.2 11.0-15.5 % Platelet Count 153 130-400 K/uL Mean Platelet Volume 9.8 7.5-10.5 fL Immature Granulocyte % (Auto) 1.0 0-1 % Neutrophils (%) (Auto) 92.6 H 40.0-77.0 % Lymphocytes (%) (Auto) 2.5 L 21.0-51.0 % Monocytes (%) (Auto) 3.6 3.0-13.0 % Eosinophils (%) (Auto) 0.1 0.0-8.0 % Basophils (%) (Auto) 0.2 0.0-5.0 % Neutrophils # (Auto) 17.0 H 1.8-7.7 K/uL Lymphocytes # (Auto) 0.5 L 1.0-4.8 K/uL Monocytes # (Auto) 0.7 0.1-1.0 K/uL Eosinophils # (Auto) 0.01 0.00-0.70 K/uL Basophils # (Auto) 0.04 0.00-0.20 K/uL Absolute Immature Granulocyte (auto 0.18 0-1 K/uL Nucleated Red Blood Cells 0.0 0.0-0.19 % Erythrocyte Sedimentation Rate 48 H 0-15 MM/HR Sodium Level 132 L 136-145 mmol/L Potassium Level 4.0 3.5-5.1 mmol/L Chloride Level 91 L 101-111 mmol/L Carbon Dioxide Level 29 21-32 mmol/L Blood Urea Nitrogen 47 H 7-18 mg/dL Creatinine 8.8 *H 0.5-1.3 mg/dL Glomerular Filtration Rate Calc 7 >90 mL/min Random Glucose 153 H 70-105 mg/dL Lactic Acid Level 1.6 0.8-2.5 mmol/L Total Calcium 6.9 L 8.5-10.1 mg/dL Magnesium Level 1.80 1.80-2.40 mg/dL Total Bilirubin 0.6 0.2-1.0 mg/dL Direct Bilirubin 0.3 0.0-0.3 mg/dL Aspartate Amino Transf (AST/SGOT) 28 10-37 U/L Alanine Aminotransferase (ALT/SGPT) 21 12-78 U/L Alkaline Phosphatase 131 50-136 U/L Lactate Dehydrogenase 319 H 81-234 U/L Troponin I High Sensitivity 47 4-75 ng/L C-Reactive Protein, Quantitative 176.20 H 0.5-3.0 mg/L Total Protein 6.5 6.0-8.3 g/dL Albumin 2.2 L 3.5-5.0 g/dL Procalcitonin 147.68 H 0.05-0.5 ng/mL Current Medications Medications (Trade) Dose Ordered Sig/Jeff Route PRN Reason Start Time Stop Time Status Last Admin Dose Admin Acetaminophen (TYLenol 325MG TAB) 650 mg Q6H PRN PO MILD PAIN (1-3) 07/13/25 15:30 08/12/25 15:29 Dextrose (D50w) 50 ml AD PRN IV HYPOGLYCEMIA PROTOCOL 07/13/25 15:30 08/12/25 15:29 Famotidine (Pepcid 20mg Tab) 20 mg QMOWEFR@1900 PO 07/13/25 21:00 08/12/25 20:59 Glucagon (Glucagon 1mg Kit) 1 mg AD PRN IM HYPOGLYCEMIA PROTOCOL 07/13/25 15:30 08/12/25 15:29 Heparin Sodium (Porcine) (HEParin 5,000 UNIT VIAL) 5,000 unit BID SQ 07/13/25 21:00 08/12/25 20:59 Insulin Human Regular (humuLIN R 100 UNIT/ML 3ML) INSULIN SLIDING SCAL... ACHS SQ 07/13/25 16:30 08/12/25 16:29 07/13/25 17:14 2 UNIT Ondansetron HCl (zoFRAN 4MG INJ) 4 mg Q6H PRN IVP NAUSEA/VOMITING 07/13/25 15:30 08/12/25 15:29 Piperacillin Sod/ Tazobactam Sod (Zosyn 3.375gm+NS 50ml) 3.375 gm BID IVPB 07/13/25 21:00 07/23/25 20:59 Thiamine HCl (Vitamin B-1) 100 mg Q24H IVP 07/13/25 15:30 08/12/25 15:29 07/13/25 17:11 100 MG Vancomycin HCl 100 ml @ 100 mls/hr QMOWEFR[DIALYSIS] IV 07/16/25 16:00 07/26/25 15:59 Vancomycin HCl (Vancomycin Protocol) 1 each AD IV 07/13/25 12:30 07/27/25 12:29 Vitamin B Complex/ Vit C/Folic Acid (Nephrovite Tablet) 1 cap DAILY PO 07/14/25 09:00 08/13/25 08:59 DIAGNOSTICS / RADIOLOGY: ORDERING PHYSICIAN: RIVERA RINCON MD PROCEDURE: ABD PEL WO - CT ABDOMEN/PELVIS W/O CONTRAST STUDY CT Abdomen and Pelvis Without IV contrast. HISTORY Sepsis with gram-negative bacteremia; history of enteritis and end-stage renal disease. TECHNIQUE Axial computed tomography images of the abdomen and pelvis were obtained without intravenous contrast. COMPARISON CT Abdomen/Pelvis Without Contrast 07/09/2025 15:32 EST. FINDINGS LUNG BASES Peripheral ground-glass opacities with small nodular infiltrates are present in the bilateral lower lobes. Mild chronic dependent interstitial changes are seen in the bilateral posterobasal lungs, without rena consolidation or pleural effusion. LIVER AND BILIARY SYSTEM The liver is enlarged, measuring approximately 17 cm in craniocaudal dimension, with decreased attenuation compatible with hepatic steatosis. No focal hepatic mass or biliary ductal dilatation is identified. The gallbladder is unremarkable without calcified gallstones. PANCREAS The pancreas is normal in size and contour without peripancreatic inflammatory change. SPLEEN The spleen is normal in size and attenuation without focal lesion. ADRENAL GLANDS The adrenal glands are normal in size and morphology. KIDNEYS, URETERS, AND BLADDER Both kidneys demonstrate mildly bulky cortices, more pronounced on the left. No hydronephrosis, hydroureter, or radiopaque urinary calculus is identified. At the level of the left renal hilum, left para-aortic/renal hilar lymph nodes are present, measuring up to approximately 1.6 1.0 cm. The urinary bladder shows mild diffuse wall thickening with subtle perivesical fat stranding, suggestive of mild cystitis. No intraluminal gas or calculus is seen. STOMACH AND BOWEL The stomach and bowel are normal in caliber without evidence of obstruction. No abnormal small-bowel wall thickening is seen on the current study. Previously described mild small-bowel enteritis on the comparison CT has improved and is not evident now. No colitis or pneumatosis is identified. APPENDIX The appendix is visualized and appears normal without periappendiceal inflammation. PERITONEUM AND MESENTERY No free intraperitoneal air or free fluid is demonstrated. No mesenteric inflammatory mass or collection is seen. LYMPH NODES Apart from the mildly enlarged left para-aortic/renal hilar nodes described above, no additional pathologic abdominopelvic lymphadenopathy is identified. REPRODUCTIVE ORGANS The prostate is enlarged, with an estimated volume of approximately 37 cc. VASCULATURE The abdominal aorta is normal in caliber without aneurysm. No obvious thrombosis is identified on this non-contrast study. ABDOMINAL WALL AND BONES A small umbilical hernia with approximately 1 cm fascial defect contains fat only, without strangulation. No acute or aggressive osseous lesion is seen. IMPRESSION * Mildly bulky renal cortices bilaterally, more pronounced on the left, with mildly enlarged left para-aortic/renal hilar lymph nodes and associated mild bladder wall thickening and perivesical fat stranding, raising concern for bilateral but left-predominant upper urinary tract infection/pyelonephritis with cystitis in the setting of gram-negative bacteremia; correlate with urinalysis, cultures, and renal function. * Hepatomegaly with hepatic steatosis and prostatomegaly; small fat-containing umbilical hernia without complication. * Peripheral ground-glass nodular opacities and mild chronic dependent interstitial changes in the bilateral lower lungs, which may reflect mild inflammatory/infectious or volume-related changes; no focal consolidation or effusion. * Interval resolution of previously described mild small-bowel enteritis on the comparison CT of 07/09/2025; no current CT evidence of enteritis, colitis, bowel obstruction, or acute intra-abdominal collection. /[place] DICTATED BY: ZHANG DRAKE MD DATE: 07/13/251730 ELECTRONICALLY SIGNED BY: ZHANG DRAKE MD DATE: 07/13/251730 ASSESSMENT: Gram-negative sepsis, POA Rule out complicated UTI with pyelonephritis, POA Hypotension secondary to sepsis as outpatient, POA Recent history of enteritis, POA Recent microbiological cultures positive for Enterobacter in blood, 07/09/2025, POA Rule out dialysis catheter associated infection, POA History of ESRD, POA Type 2 diabetes mellitus, POA Hypertension, POA Hyperlipidemia, POA History of diabetic foot ulcer in 2022 requiring right foot 5th digit partial ray amputation, POA PLAN: Patient will be admitted to cardiac telemetry floor We will monitor blood pressure closely, maintain map greater than 65 Blood cultures will be obtained, we will obtain a urinalysis and urine culture Patient will be started on broad-spectrum antibiotics with vancomycin/Zosyn, we will follow up cultures to deescalate antibiotics IR is currently unavailable in [facility] [place] until Wednesday, patient needs to have his dialysis catheter removed as soon as possible, I spoke with Dr. Torres with General surgery, he is available to remove the catheter medical billing specialist tomorrow, we will send catheter tip for cultures as well We will obtain a 2D echocardiogram Patient's abdominal CT was reviewed which showed findings of possible p yelonephritis/complicated UTI, we will obtain a urinalysis, culture to ensure patient does not have a UTI Consultation with Dr. Prado with Nephrology will be requested Consultation with Infectious Disease will be requested We will have ICU service monitor this patient closely for the next 24 hours due to hypotension noted today, we will monitor patient closely to ensure patient d oes not go into septic shock Patient will be started on sliding scale insulin a.c. and HS Home medications will be reconciled and updated, antihypertensives will be held today and we will slowly restart them in the next 24-48 hours based on blood pressure trend Date of service: 07/13/2025 Condition remains critical Prognosis remains guarded Plan of care was discussed with patient and family at bedside, Rivera Rincon MD Advanced Care Planning: Which of the following were discussed: Hospice care: Yes __ No _X_ Therapeutic options: Yes _X_ No __ Advance directives: Yes _X_ No __ Other discussions: Discussed with who?: Patient Voluntary nature of this service was explained to the patient? Yes _x_ No __ Amount of time spent: 20 minutes RIVERA RINCON MD Jul 13, 2025 18:27
--- NOTE | 2025-07-13 19:20 | CONS ---
[facility] CONSULTATION NOTE Date Patient Seen: Jul 13, 2025 Time of Visit: 19:05 Supervising Physician: KRIS PIZARRO Reason for Consultation: SEVERE SEPSIS, GRAM NEGATIVE BACTEREMIA Primary Care Physician: LICHA LINARES Outpatient Specialists: [ ] Inpatient Consults: INFECTIOUS DISEASE, NEPHROLOGY, SURGERY. PROBLEM LIST: 1. END-STAGE RENAL DISEASE ON HEMODIALYSIS, POA 2. SEVERE SEPSIS POA 3. BILATERAL LOWER LOBES PNEUMONIA, POA 4. ACUTE HYPOXIC RESPIRATORY FAILURE, POA 5. GRAM-NEGATIVE BACTEREMIA, POA 6. DIABETES TYPE 2 UNCONTROLLED, POA 7. SUSPECTED RIGHT CHEST PERMANENT CATHETER INFECTION, POA 8. SUSPECTED ACUTE COMPLICATED CYSTITIS, POA CHIEF COMPLAINT, GENERALIZED BODY WEAKNESS FEVER, 101.7 F IN THE EMERGENCY DEPARTMENT HPI: PATIENT IS A 35-YEAR-OLD MALE WITH PAST MEDICAL HISTORY SIGNIFICANT FOR END- STAGE RENAL DISEASE ON HEMODIALYSIS WEDNESDAY, WEDNESDAY, AND WEDNESDAY, DIABETES TYPE 2, BACTEREMIA DUE TO GRAM-NEGATIVE, AND A SURGICAL HISTORY OF LEFT AV GRAFT PLACEMENT, RIGHT PINKY TOE AMPUTATION, LEFT ARM SURGERY, RIGHT CHEST PERMANENT CATHETER PLACEMENT, PRESENTED TO EMERGENCY DEPARTMENT COMPLAINING OF GENERALIZED BODY WEAKNESS AND FEVER FOR THREE DAYS. PATIENT REPORTS THAT FOR THE PAST72 HOURS, HE HAS BEEN EXPERIENCING FEVER AND WORSENING GENERALIZED BODY WEAKNESS. TODAY, PATIENT DECIDED TO COME TO EMERGENCY DEPARTMENT FOR FURTHER EVALUATION AND TREATMENT. PATIENT DENIES CHILLS, NAUSEA, VOMITING, DIARRHEA, CHEST PAIN, DIZZINESS, OR ANY OTHER SYMPTOMS. THE WORKUP IN THE EMERGENCY DEPARTMENT SHOWS WBC OF 18.3, BLOOD PRESSURE OF 94/49, GLUCOSE OF 181, PROCALCITONIN OF 147.68, SODIUM OF 132, CREATININE OF 8.8, CT ABDOMEN AND PELVIS SHOWS Mildly bulky renal cortices bilaterally, more pronounced on the left, with mildly enlarged left para-aortic/renal hilar lymph nodes and associated mild bladder wall thickening and perivesical fat stranding, raising concern for bilateral but left-predominant upper urinary tract infection/pyelonephritis with cystitis in the setting of gram-negative bacteremia; correlate with urinalysis, cultures, and renal function. * Hepatomegaly with hepatic steatosis and prostatomegaly; small fat-containing umbilical hernia without complication. * Peripheral ground-glass nodular opacities and mild chronic dependent interstitial changes in the bilateral lower lungs, which may reflect mild inflammatory/infectious or volume-related changes; no focal consolidation or effusion. * Interval resolution of previously described mild small-bowel enteritis on the comparison CT of 07/09/2025; no current CT evidence of enteritis, colitis, bowel obstruction, or acute intra-abdominal collection. PATIENT IS ADMITTED UNDER THE HOSPITALIST TEAM, CRITICAL CARE TEAM, GENERAL SURGERY, INFECTIOUS DISEASE SPECIALIST, AND VP CARE MANAGEMENT HAS BEEN CONSULTED. PAST MEDICAL HX: see above PAST SURGICAL HX: noncontributory SOCIAL HISTORY: No tobacco, ETOH, or illicit drug use Coded Allergies: No Known Drug Allergies (Unverified Allergy, Unknown, 07/29/22) REVIEW OF SYSTEMS: 12 point ROS reviewed with patient. Pertinent positives mentioned above. Otherwise negative. PHYSICAL EXAM: GENERAL: alert, weak, awake oriented x 3 HEENT: EOMI, Sclera non icteric, moist mucosa NECK: Supple, no JVD, trachea midline LUNGS: Clear breath sounds bilaterally. No wheezes HEART: Regular rate and rhythm. Normal S1 and S2, without murmurs ABD: Abdomen soft, nontender. Bowel sounds present EXT: No clubbing cyanosis or edema NEURO: Alert and oriented to person, follows commands Vital Signs (last 8hr) Date Time Temp Pulse Resp B/P (MAP) Pulse Ox O2 Delivery O2 Flow Rate FiO2 07/13/25 18:37 100 Room Air 0.0 07/13/25 18:20 92 Room Air* 0 07/13/25 17:56 98.2 85 18 109/66 92 Room Air 07/13/25 16:12 99.9 87 16 137/66 95 Room Air* 0 07/13/25 15:00 99.9 78 18 97/50 95 Room Air* 0 07/13/25 14:10 99.9 85 17 97/49 97 Room Air* 0 07/13/25 13:12 101.1 102 17 133/68 99 Room Air* 0 07/13/25 13:05 101.7 07/13/25 12:16 101.7 90 24 100/49 94 Room Air LABS: Hematology Labs: Test 07/13/25 12:38 Range/Units White Blood Count 18.3 H 4.8-10.8 K/uL Red Blood Count 3.51 L 4.50-6.20 MIL/uL Hemoglobin 10.7 L 14.0-18.0 g/dL Hematocrit 32.7 L 42-54 % Mean Corpuscular Volume 93.2 79-99 fL Mean Corpuscular Hemoglobin 30.5 27.0-33.0 pg Mean Corpuscular Hemoglobin Concent 32.7 32.0-36.0 g/dL Red Cell Distribution Width 13.2 11.0-15.5 % Platelet Count 153 130-400 K/uL Mean Platelet Volume 9.8 7.5-10.5 fL Immature Granulocyte % (Auto) 1.0 0-1 % Neutrophils (%) (Auto) 92.6 H 40.0-77.0 % Lymphocytes (%) (Auto) 2.5 L 21.0-51.0 % Monocytes (%) (Auto) 3.6 3.0-13.0 % Eosinophils (%) (Auto) 0.1 0.0-8.0 % Basophils (%) (Auto) 0.2 0.0-5.0 % Neutrophils # (Auto) 17.0 H 1.8-7.7 K/uL Lymphocytes # (Auto) 0.5 L 1.0-4.8 K/uL Monocytes # (Auto) 0.7 0.1-1.0 K/uL Eosinophils # (Auto) 0.01 0.00-0.70 K/uL Basophils # (Auto) 0.04 0.00-0.20 K/uL Absolute Immature Granulocyte (auto 0.18 0-1 K/uL Nucleated Red Blood Cells 0.0 0.0-0.19 % Erythrocyte Sedimentation Rate 48 H 0-15 MM/HR Chemistry Labs: Test 07/13/25 15:14 07/13/25 12:38 Range/Units Whole Blood Glucose 181 H 70-110 MG/DL Sodium Level 132 L 136-145 mmol/L Potassium Level 4.0 3.5-5.1 mmol/L Chloride Level 91 L 101-111 mmol/L Carbon Dioxide Level 29 21-32 mmol/L Blood Urea Nitrogen 47 H 7-18 mg/dL Creatinine 8.8 *H 0.5-1.3 mg/dL Glomerular Filtration Rate Calc 7 >90 mL/min Random Glucose 153 H 70-105 mg/dL Lactic Acid Level 1.6 0.8-2.5 mmol/L Total Calcium 6.9 L 8.5-10.1 mg/dL Magnesium Level 1.80 1.80-2.40 mg/dL Total Bilirubin 0.6 0.2-1.0 mg/dL Direct Bilirubin 0.3 0.0-0.3 mg/dL Aspartate Amino Transf (AST/SGOT) 28 10-37 U/L Alanine Aminotransferase (ALT/SGPT) 21 12-78 U/L Alkaline Phosphatase 131 50-136 U/L Lactate Dehydrogenase 319 H 81-234 U/L Troponin I High Sensitivity 47 4-75 ng/L C-Reactive Protein, Quantitative 176.20 H 0.5-3.0 mg/L Total Protein 6.5 6.0-8.3 g/dL Albumin 2.2 L 3.5-5.0 g/dL Procalcitonin 147.68 H 0.05-0.5 ng/mL DIAGNOSTICS / RADIOLOGY RESULTS: [ ] PLAN: Continue vancomycin and Zosyn Surgeon consult for possible removal of the right chest permanent catheter Follow Infectious Disease specialist recommendations Follow nephrology recommendations related to hemodialysis Obtain UA Obtain blood culture x2 Insulin coverage per sliding scale Obtain hemoglobin A1c Since supplementation needed keep saturation above 92% Famotidine for GI prophylaxis Heparin for DVT prophylaxis Full code NEURO: Minimize central acting medications as possible. Maintain fall precautions, adequate lighting during the day PULMONARY: Supplemental 02 as needed. Maintain aspiration precautions at all times CARDIOVASCULAR: Follow hemodynamics. Vital signs per facility protocol GI & NUTRITION: Continue with nutritional support. Continue stool softeners and laxatives as needed. KIDNEYS & ELECTROLYTES: Strict monitoring of intake, output and overall fluid balance. Avoid nephrotoxic medications to the extent possible. Medications to be dosed according to renal function. Monitor electrolytes and replace as needed ENDOCRINE: Maintain blood glucose between 100-180 at all times. Hypoglycemia protocol in place INFECTIOUS DISEASE: Trend temperature, WBC and procalcitonin level Follow cultures, deescalate antibiotics as soon as possible. Panculture if new onset fever ONCOLOGY/HEMATOLOGY/COAGULATION: Monitor for s/s of bleeding Monitor hemoglobin, coagulation studies as needed SKIN: Pressure ulcer prevention per facility protocol Specialty mattress ORTHO/REHAB: Continue PT/OT Prophylaxis: Continue GI and DVT prophylaxis Code Status: Full Resuscitation Disposition: TBD Other: Total patient care time exceeds 35 minutes excluding all procedures. Case discussed with KRIS Cárdenas, AND THE ABOVE PLAN WAS FORMULATED. HUMAIRA SOOD Jul 13, 2025 19:20
[2025-07-13 19:40] VITALS: BP 150/99; PULSE 84; RESP 18; TEMP 98.2
[2025-07-13 20:00] VITALS: O2SAT 96
[2025-07-13] MEDS: ZOSYN 3.375GM +NS 50ML IVPB SCH (21:18)
[2025-07-13] MEDS: FAMOTIDINE 20MG TAB PO SCH (21:18)
[2025-07-13 22:45] LABS: ADD UA MICROSCOPIC YES; APPEARANCE,URINE CLEAR (CLEAR); GLUCOSE, URINE (UA) >=1000 mg/dL (NEGATIVE); LEUKOCYTE ESTERASE ,URINE NEGATIVE Leu/uL (NEGATIVE); NITRATE,URINE NEGATIVE (NEGATIVE); OCCULT BLOOD,URINE MODERATE (NEGATIVE)
[2025-07-13 22:48] LABS: SQUAMOUS EPITHELIAL CELL,UR RARE /HPF (0-2)
[2025-07-13 23:48] VITALS: BP 120/64; PULSE 74; RESP 18; TEMP 98.2
[2025-07-14] VITALS (36 sets, daily range): BP systolic 94–160; BP diastolic 52–88; PULSE 57–84; RESP 12–20; TEMP 97–98.6; O2SAT 93–95
[2025-07-14 03:42] LABS: IMMATURE GRANULOCYTE ABSOLUTE 0.10 K/uL (0-1); NUCLEATED RED BLOOD CELLS 0.0 % (0.0-0.19); PLATELET COUNT (AUTO) 162 K/uL (130-400); RED BLOOD CELL COUNT(AUTO) 3.01 MIL/uL (4.50-6.20); RED CELL DISTRIBUTION WIDTH 13.3 % (11.0-15.5); WHITE BLOOD COUNT (AUTO) 17.5 K/uL (4.8-10.8)
[2025-07-14 04:02] LABS: ASPARTATE AMINOTRANSFERASE 28.0 U/L (10-37); GLOMERULAR FILTR. RATE CALC 6.0 mL/min (>90); GLUCOSE,RANDOM 158.0 mg/dL (70-105); SODIUM SERUM 133.0 mmol/L (136-145); TOTAL PROTEIN, SERUM 5.5 g/dL (6.0-8.3); UREA NITROGEN, BLOOD 54.0 mg/dL (7-18)
[2025-07-14 04:06] LABS: CREATININE 9.8 mg/dL (0.5-1.3)
[2025-07-14 04:54] LABS: INR 0.97 (0.85-1.15)
--- NOTE | 2025-07-14 07:06 | CONS ---
GENERAL SURGERY CONSULTATION NOTE Date/Time Patient Seen: [July 14, 2025 ] Requesting Physician: [ Hospitalist] Reason for Consultation: [ Infected PermCath] History of Present Illness: [Patient with a history of end-stage renal disease on dialysis had a PermCath placed for some time. Patient recently had a AV fistula placed by another surgeon. That fistula has been working for the last two weeks. Currently the patient has been noted to be bacteremic. There is a thought that the bacteremia is from infection in patient's PermCath. Patient's PermCath was placed quite some time ago. He has been using it for dialysis up to about two weeks ago. Patient has had episodes of fevers over the last week. Associated with the fevers has been some malaise, decreased oral intake. Due to patient's unrelenting symptoms she came in the emergency room. Complete workup emergency room was consistent with a leukocytosis suggestive of a bacteremia. 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 PAST SOCIAL HISTORY: Patient denies active smoking or alcohol consumption FAMILY HISTORY: Denies pertinent family history Allergies: No known drug allergies Home medications, family will be bringing list of home medications to be reconciled and updated Coded Allergies: No Known Drug Allergies (Unverified Allergy, Unknown, 07/29/22) Current Medications Medications (Trade) Dose Ordered Sig/Jeff Route Start Time Stop Time Status Last Admin Dose Admin Famotidine (Pepcid 20mg Tab) 20 mg QMOWEFR@1900 PO 07/13/25 21:00 08/12/25 20:59 07/13/25 21:18 20 MG Heparin Sodium (Porcine) (HEParin 5,000 UNIT VIAL) 5,000 unit BID SQ 07/13/25 21:00 08/12/25 20:59 07/13/25 21:25 5,000 UNIT Insulin Human Regular (humuLIN R 100 UNIT/ML 3ML) INSULIN SLIDING SCAL... ACHS SQ 07/13/25 16:30 08/12/25 16:29 07/13/25 17:14 2 UNIT Piperacillin Sod/ Tazobactam Sod (Zosyn 3.375gm+NS 50ml) 3.375 gm BID IVPB 07/13/25 21:00 07/23/25 20:59 07/13/25 21:18 3.375 GM Thiamine HCl (Vitamin B-1) 100 mg Q24H IVP 07/13/25 15:30 08/12/25 15:29 07/13/25 17:11 100 MG Vancomycin HCl 100 ml @ 100 mls/hr QMOWEFR[DIALYSIS] IV 07/16/25 16:00 07/26/25 15:59 Vancomycin HCl (Vancomycin Protocol) 1 each AD IV 07/13/25 12:30 07/27/25 12:29 Vitamin B Complex/ Vit C/Folic Acid (Nephrovite Tablet) 1 cap DAILY PO 07/14/25 09:00 08/13/25 08:59 Review of Systems: Fourteen point review of systems negative except was mentioned in the history of present illness Physical Examination: GENERAL: [No acute distress.] HEAD: [Normal with no signs of head trauma.] EYES: [PERRLA, EOMI, conjunctiva and sclera normal.] ENT: [Hearing grossly intact, normal oropharynx.] NECK: [Supple without JVD. There is no tenderness, lymphadenopathy, or masses. No thyromegaly. Normal carotid upstrokes without bruits.] LUNGS: [Clear breath sounds bilaterally. There are right basilar rales one third of the way up the chest. No wheezes, or rhonchi.] HEART: [Normal rate and rhythm. Normal S1 and S2 without mumurs, gallop or rub.] VASC: [Peripheral pulses +2 bilaterally.] ABD: [Bowel sounds normal, soft, nontender, no masses, no organomegaly. No audible bruits.] : [Not examined] LYMPH: [No lymphadenopathy noted.] EXT: [No clubbing, cyanosis or edema.] SKIN: [No rashes or lesions noted.] NEURO: [Awake, alert, and oriented x3. No focal sensory or strength deficits noted.] Vital Signs (last 8hr) Date Time Temp Pulse Resp B/P (MAP) Pulse Ox O2 Delivery O2 Flow Rate FiO2 07/14/25 05:31 98.2 76 18 143/73 97 Room Air 07/13/25 23:48 98.2 74 18 120/64 97 Room Air Laboratory: [ ] Hematology Labs: Test 07/14/25 03:11 07/13/25 12:38 Range/Units White Blood Count 17.5 H 4.8-10.8 K/uL Red Blood Count 3.01 L 4.50-6.20 MIL/uL Hemoglobin 9.3 L 14.0-18.0 g/dL Hematocrit 27.4 L 42-54 % Mean Corpuscular Volume 91.0 79-99 fL Mean Corpuscular Hemoglobin 30.9 27.0-33.0 pg Mean Corpuscular Hemoglobin Concent 33.9 32.0-36.0 g/dL Red Cell Distribution Width 13.3 11.0-15.5 % Platelet Count 162 130-400 K/uL Mean Platelet Volume 10.6 H 7.5-10.5 fL Immature Granulocyte % (Auto) 0.6 0-1 % Neutrophils (%) (Auto) 76.4 40.0-77.0 % Lymphocytes (%) (Auto) 10.2 L 21.0-51.0 % Monocytes (%) (Auto) 9.6 3.0-13.0 % Eosinophils (%) (Auto) 2.7 0.0-8.0 % Basophils (%) (Auto) 0.5 0.0-5.0 % Neutrophils # (Auto) 13.4 H 1.8-7.7 K/uL Lymphocytes # (Auto) 1.8 1.0-4.8 K/uL Monocytes # (Auto) 1.7 H 0.1-1.0 K/uL Eosinophils # (Auto) 0.48 0.00-0.70 K/uL Basophils # (Auto) 0.09 0.00-0.20 K/uL Absolute Immature Granulocyte (auto 0.10 0-1 K/uL Nucleated Red Blood Cells 0.0 0.0-0.19 % Erythrocyte Sedimentation Rate 48 H 0-15 MM/HR Chemistry Labs: Test 07/14/25 05:27 07/14/25 03:11 07/13/25 12:38 Range/Units Whole Blood Glucose 172 H 70-110 MG/DL Sodium Level 133 L 136-145 mmol/L Potassium Level 3.7 3.5-5.1 mmol/L Chloride Level 94 L 101-111 mmol/L Carbon Dioxide Level 27 21-32 mmol/L Blood Urea Nitrogen 54 H 7-18 mg/dL Creatinine 9.8 *H 0.5-1.3 mg/dL Glomerular Filtration Rate Calc 6 >90 mL/min Random Glucose 158 H 70-105 mg/dL Total Calcium 6.1 L 8.5-10.1 mg/dL Magnesium Level 2.10 1.80-2.40 mg/dL Total Bilirubin 0.5 0.2-1.0 mg/dL Aspartate Amino Transf (AST/SGOT) 28 10-37 U/L Alanine Aminotransferase (ALT/SGPT) 17 12-78 U/L Alkaline Phosphatase 99 50-136 U/L C-Reactive Protein, Quantitative 243.90 H 0.5-3.0 mg/L Total Protein 5.5 L 6.0-8.3 g/dL Albumin 1.7 #L 3.5-5.0 g/dL Procalcitonin > 200.00 H 0.05-0.5 ng/mL Lactic Acid Level 1.6 0.8-2.5 mmol/L Direct Bilirubin 0.3 0.0-0.3 mg/dL Lactate Dehydrogenase 319 H 81-234 U/L Troponin I High Sensitivity 47 4-75 ng/L Coagulation Labs: Test 07/14/25 04:37 Range/Units Prothrombin Time 10.3 9.6-11.6 SEC Prothromb Time International Ratio 0.97 0.85-1.15 Activated Partial Thromboplast Time 32.8 26.3-35.5 SEC Diagnostics / Radiology: [Copy/Paste Echos/Imaging Report here] Assessment: [ Infected PermCath] Plan: [ Plan removal of infected PermCath. Risks associated with the procedure not limited to infection, bleeding, injury to surrounding structures has been explained to patient and he indicates he understands and would like to proceed.] KALEY BRANHAM MD Jul 14, 2025 07:06
[2025-07-14] MEDS ORDERED: LIDOCAINE PF 100MG/5ML (2%) SYRINGE 5ML ONE (07:18)
[2025-07-14] MEDS ORDERED: MIDAZOLAM HCL 1 MG/ML 2ML VIAL ONE (07:18)
--- NOTE | 2025-07-14 07:58 | OP ---
Operative Note: DATE OF PROCEDURE: 07/14/25 SURGEON: KALEY BRANHAM MD BORDER MEASURER AND CUTTER: [Kimberly Barriga CFA] ANESTHESIA: [General endotracheal anesthesia] ANESTHESIOLOGIST/CINDER CRUSHER OPERATOR: [[facility] anesthesia team] PREOPERATIVE DIAGNOSIS: [Bacteremia with infected PermCath] POSTOPERATIVE DIAGNOSIS: [Same] SYNOPSIS: [Bacteremia with infected PermCath Removal of PermCath PermCath completely removed Tip sent off for Gram stain, aerobic and anaerobic culture and sensitivity All sponges and instruments accounted for at the end the case Patient tolerated the procedure well, there no complications] PROCEDURE: [Removal of PermCath] ESTIMATED BLOOD LOSS: [Less than 10 cc] INDICATIONS: [Bacteremia with infected PermCath] DESCRIPTION OF PROCEDURE: [On day of surgery patient presented to the hospital. Patient was brought back to operating room. Positioned in the supine position. Preoperative antibiotics were given. Bilateral SCDs were placed. Patient was intubated. Patient then was prepped and draped the usual fashion. Local anesthetic was instilled into the skin surrounding the site of the PermCath entrance into the body. Dissection around the PermCath to the cuffs was done with a pair of curved clamps. The cuff was from all the surrounding adhesive tissue. As the catheters were removed pressure was placed at the entrance site to the jugular vein. Both catheters were removed in total and the tips were transected and sent off for Gram stain, aerobic, anaerobic culture and sensitivity. Pressure was held at the site of the entrance into the vein for approximately 15 minutes. No bleeding was noted. Then the skin incision itself was closed with carolann. Appropriate dressings were placed. Patient has woken up, transferred to a stretcher, taken to recovery room to recovery. All sponges and instruments accounted for at the end the case. Patient tolerated the procedure well, there no complications.] KALEY BRANHAM MD Jul 14, 2025 07:58
[2025-07-14] MEDS ORDERED: PROMETHAZINE HCL 25 MG/ML 1ML AMPULE IM PRN (08:30)
[2025-07-14] MEDS: Vitamin B Complex/Vit C/Folic Acid PO SCH (09:52)
--- NOTE | 2025-07-14 09:58 | PN ---
[facility] PROGRESS NOTE Date of Service: Jul 14, 2025 Time of Service: 09:58 SUBJECTIVE: [ ] REVIEW OF SYSTEMS CONSTITUTIONAL: reports having fevers, chills, malaise, asthenic for several days NEUROLOGICAL: Denies headache, amaurosis fugax, motor weakness, sensory deficit, vertigo/spinning sensation, gait abnormalities, or tremors. ENT: No hearing loss, otalgia, otorrhea, rhinitis, rhinorrhea, hoarseness, or sore throat. CARDIOVASCULAR: Denies any exertional angina, dyspnea on exertion, orthopnea, paroxysmal nocturnal dyspnea, palpitations, life-threatening arrhythmias, claudication. PULMONARY: Denies any shortness of breath, cough, phlegm/sputum, hemoptysis, pleuritic chest pain. SLEEP: Denies morning headaches, daytime somnolence or napping. Denies difficulty falling asleep, staying asleep, waking from sleep. Denies knowledge of snoring. GASTROINTESTINAL: nausea, vomiting, poor pral intake for several days GENITOURINARY: Denies frequency, urgency, nocturia, hematuria or incontinence (Storage/Irritative symptoms.) Low urinary stream, straining to void, urinary intermittency or hesitancy, splitting of the voiding stream, terminal dribbling. ENDOCRINOLOGIC: Denies polyuria, polydipsia, polyphagia or heat/cold intolerances. HEMATOLOGIC: Denies thrombophilia/previous clots, or coagulopathy/bleeding disorders. ONCOLOGIC: Denies personal history of malignancy. DERMATOLOGIC: Denies rashes or pruritus. PSYCHIATRIC: Denies any suicidal or homicidal ideation. Denies hallucinations. PHYSICAL EXAM GENERAL APPEARANCE: The patient is lethargic, able to answer, appears debilitated NEUROLOGICAL: Cranial nerves II-XII grossly intact. Motor is 5/5 in bilateral upper and lower extremities proximal to distal. No sensory deficits. HEENT: Face is symmetric. Pupils are equal and reactive. Extraocular movements are intact. NECK: Supple. No JVD. No thyromegaly. No submental, submandibular, pre- /postauricular, occipital or supraclavicular lymphadenopathy. CHEST: Normal chest expansion. No Telemetry. LUNGS: Absence of any rales, rhonchi or any wheezing. CARDIOVASCULAR: Regular. S1 and S2 normal. No appreciable rubs, murmurs or gallops. ABDOMEN: Soft, nontender, and nondistended. There is no rebound, voluntary guarding, or rigidity. : Deferred. No Millan. EXTREMITIES: Fistula noted of the left arm with thrill and bruit Vital Signs (last 8hr) Date Time Temp Pulse Resp B/P (MAP) Pulse Ox O2 Delivery O2 Flow Rate FiO2 07/14/25 09:00 95 Room Air* 0 21 07/14/25 08:51 97.3 71 18 129/67 97 Room Air 07/14/25 08:46 73 15 124/64 97 Room Air 07/14/25 08:41 72 17 119/61 96 Room Air 07/14/25 08:36 71 14 109/59 98 Room Air 07/14/25 08:31 74 19 107/57 96 Room Air 07/14/25 08:26 70 20 108/58 97 Room Air 07/14/25 08:21 67 14 105/56 100 Nonrebreathing Mask 100 07/14/25 08:16 64 12 109/57 100 Nonrebreathing Mask 100 07/14/25 08:11 64 13 104/55 100 Nonrebreathing Mask 100 07/14/25 08:06 97.0 63 12 94/52 100 Nonrebreathing Mask 100 07/14/25 05:31 98.2 76 18 143/73 97 Room Air LABS: Laboratory: Test 07/14/25 05:27 07/14/25 04:37 07/14/25 03:11 07/13/25 22:10 Range/Units Whole Blood Glucose 172 H 70-110 MG/DL Prothrombin Time 10.3 9.6-11.6 SEC Prothromb Time International Ratio 0.97 0.85-1.15 Activated Partial Thromboplast Time 32.8 26.3-35.5 SEC White Blood Count 17.5 H 4.8-10.8 K/uL Red Blood Count 3.01 L 4.50-6.20 MIL/uL Hemoglobin 9.3 L 14.0-18.0 g/dL Hematocrit 27.4 L 42-54 % Mean Corpuscular Volume 91.0 79-99 fL Mean Corpuscular Hemoglobin 30.9 27.0-33.0 pg Mean Corpuscular Hemoglobin Concent 33.9 32.0-36.0 g/dL Red Cell Distribution Width 13.3 11.0-15.5 % Platelet Count 162 130-400 K/uL Mean Platelet Volume 10.6 H 7.5-10.5 fL Immature Granulocyte % (Auto) 0.6 0-1 % Neutrophils (%) (Auto) 76.4 40.0-77.0 % Lymphocytes (%) (Auto) 10.2 L 21.0-51.0 % Monocytes (%) (Auto) 9.6 3.0-13.0 % Eosinophils (%) (Auto) 2.7 0.0-8.0 % Basophils (%) (Auto) 0.5 0.0-5.0 % Neutrophils # (Auto) 13.4 H 1.8-7.7 K/uL Lymphocytes # (Auto) 1.8 1.0-4.8 K/uL Monocytes # (Auto) 1.7 H 0.1-1.0 K/uL Eosinophils # (Auto) 0.48 0.00-0.70 K/uL Basophils # (Auto) 0.09 0.00-0.20 K/uL Absolute Immature Granulocyte (auto 0.10 0-1 K/uL Nucleated Red Blood Cells 0.0 0.0-0.19 % Sodium Level 133 L 136-145 mmol/L Potassium Level 3.7 3.5-5.1 mmol/L Chloride Level 94 L 101-111 mmol/L Carbon Dioxide Level 27 21-32 mmol/L Blood Urea Nitrogen 54 H 7-18 mg/dL Creatinine 9.8 *H 0.5-1.3 mg/dL Glomerular Filtration Rate Calc 6 >90 mL/min Random Glucose 158 H 70-105 mg/dL Total Calcium 6.1 L 8.5-10.1 mg/dL Magnesium Level 2.10 1.80-2.40 mg/dL Total Bilirubin 0.5 0.2-1.0 mg/dL Aspartate Amino Transf (AST/SGOT) 28 10-37 U/L Alanine Aminotransferase (ALT/SGPT) 17 12-78 U/L Alkaline Phosphatase 99 50-136 U/L C-Reactive Protein, Quantitative 243.90 H 0.5-3.0 mg/L Total Protein 5.5 L 6.0-8.3 g/dL Albumin 1.7 #L 3.5-5.0 g/dL Procalcitonin > 200.00 H 0.05-0.5 ng/mL Urine Color YELLOW YELLOW Urine Appearance CLEAR CLEAR Urine pH 7.0 5.0-8.0 Urine Specific Dixon 1.028 1.001-1.031 Urine Protein 600 H NEGATIVE mg/dL Urine Glucose (UA) >=1000 H NEGATIVE mg/dL Urine Ketones NEGATIVE NEGATIVE mg/dL Urine Occult Blood MODERATE H NEGATIVE Urine Nitrate NEGATIVE NEGATIVE Urine Bilirubin NEGATIVE NEGATIVE mg/dL Urine Urobilinogen 0.2 0.2-1.0 mg/dL Urine Leukocyte Esterase NEGATIVE NEGATIVE Chely/uL Urine RBC 2-5 H 0-1 /HPF Urine WBC 11-25 H 0-1 /HPF Urine Squamous Epithelial Cells RARE 0-2 /HPF Urine Bacteria RARE None Seen /HPF Test 07/13/25 12:38 Range/Units Erythrocyte Sedimentation Rate 48 H 0-15 MM/HR Lactic Acid Level 1.6 0.8-2.5 mmol/L Direct Bilirubin 0.3 0.0-0.3 mg/dL Lactate Dehydrogenase 319 H 81-234 U/L Troponin I High Sensitivity 47 4-75 ng/L Current Medications Medications (Trade) Dose Ordered Sig/Jeff Route PRN Reason Start Time Stop Time Status Last Admin Dose Admin Acetaminophen (TYLenol 325MG TAB) 650 mg Q6H PRN PO MILD PAIN (1-3) 07/13/25 15:30 08/12/25 15:29 Dextrose (D50w) 50 ml AD PRN IV HYPOGLYCEMIA PROTOCOL 07/13/25 15:30 08/12/25 15:29 Famotidine (Pepcid 20mg Tab) 20 mg QMOWEFR@1900 PO 07/13/25 21:00 08/12/25 20:59 07/13/25 21:18 20 MG Fentanyl Citrate (FENTanyl CITRate PF 50 MCG/ 1 ML 2ML VIAL) 25 mcg Q5MIN PRN IVP PAIN LEVEL 7 TO 10 07/14/25 08:30 07/14/25 08:49 DC Glucagon (Glucagon 1mg Kit) 1 mg AD PRN IM HYPOGLYCEMIA PROTOCOL 07/13/25 15:30 08/12/25 15:29 Heparin Sodium (Porcine) (HEParin 5,000 UNIT VIAL) 5,000 unit BID SQ 07/13/25 21:00 08/12/25 20:59 07/13/25 21:25 5,000 UNIT Hydralazine HCl (APRESOLine 20MG INJ) 5 mg Q6H PRN IV ADMINISTER FOR SBP > 160 07/14/25 06:00 08/13/25 05:59 Insulin Human Regular (humuLIN R 100 UNIT/ML 3ML) INSULIN SLIDING SCAL... ACHS SQ 07/13/25 16:30 08/12/25 16:29 07/13/25 17:14 2 UNIT Ketorolac Tromethamine (toRADol) 30 mg AD PRN IV PAIN LEVEL 1 TO 3 07/14/25 08:30 07/14/25 08:13 DC Metoclopramide HCl (regLAN 10MG IV) 10 mg AD PRN IVP NAUSEA/VOMITING 07/14/25 08:30 07/14/25 08:49 DC Morphine Sulfate (morPHINE 2MG SYG) 2 mg AD PRN IVP PAIN LEVEL 4 TO 6 07/14/25 08:30 07/14/25 08:49 DC Naloxone HCl (NARcan 0.4mg/1 mL) 0.1 mg AD PRN IVP RESPIRATORY SYMPTOMS 07/14/25 23:00 07/14/25 08:49 DC Ondansetron HCl (zoFRAN 4MG INJ) 4 mg AD PRN IVP NAUSEA/VOMITING 07/14/25 08:30 07/14/25 08:49 DC Ondansetron HCl (zoFRAN 4MG INJ) 4 mg Q6H PRN IVP NAUSEA/VOMITING 07/13/25 15:30 08/12/25 15:29 Piperacillin Sod/ Tazobactam Sod (Zosyn 3.375gm+NS 50ml) 3.375 gm BID IVPB 07/13/25 21:00 07/23/25 20:59 07/14/25 09:52 3.375 GM Promethazine HCl (Phenergan) 25 mg AD PRN IM NAUSEA/VOMITING 07/14/25 08:30 07/14/25 08:49 DC Thiamine HCl (Vitamin B-1) 100 mg Q24H IVP 07/13/25 15:30 08/12/25 15:29 07/13/25 17:11 100 MG Vancomycin HCl 100 ml @ 100 mls/hr QMOWEFR[DIALYSIS] IV 07/16/25 16:00 07/26/25 15:59 Vancomycin HCl (Vancomycin Protocol) 1 each AD IV 07/13/25 12:30 07/27/25 12:29 Vitamin B Complex/ Vit C/Folic Acid (Nephrovite Tablet) 1 cap DAILY PO 07/14/25 09:00 08/13/25 08:59 07/14/25 09:52 1 CAP DIAGNOSTICS / RADIOLOGY: [ ] ASSESSMENT: Gram-negative sepsis, POA Rule out complicated UTI with pyelonephritis, POA Hypotension secondary to sepsis as outpatient, POA Recent history of enteritis, POA Recent microbiological cultures positive for Enterobacter in blood, 07/09/2025, POA Rule out dialysis catheter associated infection, POA History of ESRD, POA Type 2 diabetes mellitus, POA Hypertension, POA Hyperlipidemia, POA History of diabetic foot ulcer in 2022 requiring right foot 5th digit partial ray amputation, POA PLAN: Patient will be admitted to cardiac telemetry floor We will monitor blood pressure closely, maintain map greater than 65 Blood cultures will be obtained, we will obtain a urinalysis and urine culture Patient will be started on broad-spectrum antibiotics with vancomycin/Zosyn, we will follow up cultures to deescalate antibiotics IR is currently unavailable in [facility] until Wednesday, patient needs to have his dialysis catheter removed as soon as possible, I spoke with Dr. Torres with General surgery, he is available to remove the catheter correctional case manager tomorrow, we will send catheter tip for cultures as well We will obtain a 2D echocardiogram Patient's abdominal CT was reviewed which showed findings of possible pyelonephritis/complicated UTI, we will obtain a urinalysis, culture to ensure patient does not have a UTI Consultation with Dr. Prado with Nephrology will be requested Consultation with Infectious Disease will be requested We will have ICU service monitor this patient closely for the next 24 hours due to hypotension noted today, we will monitor patient closely to ensure patient does not go into septic shock Patient will be started on sliding scale insulin a.c. and HS Home medications will be reconciled and updated, antihypertensives will be held today and we will slowly restart them in the next 24-48 hours based on blood pressure trend Date of service: 07/13/2025 Condition remains critical Prognosis remains guarded Plan of care was discussed with patient and family at bedside, Rivera Rincon MD Advanced Care Planning: Which of the following were discussed: Hospice care: Yes __ No _X_ Therapeutic options: Yes _X_ No __ Advance directives: Yes _X_ No __ Other discussions: Discussed with who?: Patient Voluntary nature of this service was explained to the patient? Yes _x_ No __ Amount of time spent: [address] [facility] Jul 14, 2025 09:58
[2025-07-14] MEDS: 0.9%NACL 1000ML 1,000 ML IV SCH (12:55)
--- NOTE | 2025-07-14 13:28 | PN ---
[facility] PROGRESS NOTE Date Patient Seen: Jul 14, 2025 Time of Visit: 13:25 Supervising Physician: Dr Yeoy Alves Primary Care Physician: LICHA LINARES Outpatient Specialists: [ ] Inpatient Consults: INFECTIOUS DISEASE, NEPHROLOGY, SURGERY. PROBLEM LIST: Sepsis End-stage renal disease on hemodialysis Community-acquired pneumonia Hyperglycemia in a type 2 diabetic Concern for right chest permanent catheter infection INTERVAL HISTORY: Patient was seen and examined, all labs and imaging have been reviewed Patient is sitting comfortably in bed, reporting no chest pain, no shortness of breath. Reports decreasing symptoms Nursing reports no acute events overnight, patient currently afebrile Pending hemodialysis Cultures are pending, continues on Zosyn and vancomycin, pending a viral panel Pending echocardiogram Plan: Antibiotics, following cultures Chest x-ray in a.m. Supplemental O2 if needed Nephrology recs Follow echocardiogram Follow surgical recommendations for removal of catheter. REVIEW OF SYSTEMS: 12 point ROS reviewed with patient. Pertinent positives mentioned above. Otherwise negative. PHYSICAL EXAM: GENERAL: alert, weak, awake oriented x 3 HEENT: EOMI, Sclera non icteric, moist mucosa NECK: Supple, no JVD, trachea midline LUNGS: Clear breath sounds bilaterally. No wheezes HEART: Regular rate and rhythm. Normal S1 and S2, without murmurs ABD: Abdomen soft, nontender. Bowel sounds present EXT: No clubbing cyanosis or edema NEURO: Alert and oriented to person, follows commands Vital Signs (last 8hr) Date Time Temp Pulse Resp B/P (MAP) Pulse Ox O2 Delivery O2 Flow Rate FiO2 07/14/25 09:00 95 Room Air* 0 21 07/14/25 08:51 97.3 71 18 129/67 97 Room Air 07/14/25 08:46 73 15 124/64 97 Room Air 07/14/25 08:41 72 17 119/61 96 Room Air 07/14/25 08:36 71 14 109/59 98 Room Air 07/14/25 08:31 74 19 107/57 96 Room Air 07/14/25 08:26 70 20 108/58 97 Room Air 07/14/25 08:21 67 14 105/56 100 Nonrebreathing Mask 100 07/14/25 08:16 64 12 109/57 100 Nonrebreathing Mask 100 07/14/25 08:11 64 13 104/55 100 Nonrebreathing Mask 100 07/14/25 08:06 97.0 63 12 94/52 100 Nonrebreathing Mask 100 07/14/25 05:31 98.2 76 18 143/73 97 Room Air LABS: Hematology Labs: Test 07/14/25 03:11 07/13/25 12:38 Range/Units White Blood Count 17.5 H 4.8-10.8 K/uL Red Blood Count 3.01 L 4.50-6.20 MIL/uL Hemoglobin 9.3 L 14.0-18.0 g/dL Hematocrit 27.4 L 42-54 % Mean Corpuscular Volume 91.0 79-99 fL Mean Corpuscular Hemoglobin 30.9 27.0-33.0 pg Mean Corpuscular Hemoglobin Concent 33.9 32.0-36.0 g/dL Red Cell Distribution Width 13.3 11.0-15.5 % Platelet Count 162 130-400 K/uL Mean Platelet Volume 10.6 H 7.5-10.5 fL Immature Granulocyte % (Auto) 0.6 0-1 % Neutrophils (%) (Auto) 76.4 40.0-77.0 % Lymphocytes (%) (Auto) 10.2 L 21.0-51.0 % Monocytes (%) (Auto) 9.6 3.0-13.0 % Eosinophils (%) (Auto) 2.7 0.0-8.0 % Basophils (%) (Auto) 0.5 0.0-5.0 % Neutrophils # (Auto) 13.4 H 1.8-7.7 K/uL Lymphocytes # (Auto) 1.8 1.0-4.8 K/uL Monocytes # (Auto) 1.7 H 0.1-1.0 K/uL Eosinophils # (Auto) 0.48 0.00-0.70 K/uL Basophils # (Auto) 0.09 0.00-0.20 K/uL Absolute Immature Granulocyte (auto 0.10 0-1 K/uL Nucleated Red Blood Cells 0.0 0.0-0.19 % Erythrocyte Sedimentation Rate 48 H 0-15 MM/HR Chemistry Labs: Test 07/14/25 12:02 07/14/25 03:11 07/13/25 12:38 Range/Units Whole Blood Glucose 247 H 70-110 MG/DL Bedside Glucose Comment Notified Nurse Sodium Level 133 L 136-145 mmol/L Potassium Level 3.7 3.5-5.1 mmol/L Chloride Level 94 L 101-111 mmol/L Carbon Dioxide Level 27 21-32 mmol/L Blood Urea Nitrogen 54 H 7-18 mg/dL Creatinine 9.8 *H 0.5-1.3 mg/dL Glomerular Filtration Rate Calc 6 >90 mL/min Random Glucose 158 H 70-105 mg/dL Total Calcium 6.1 L 8.5-10.1 mg/dL Magnesium Level 2.10 1.80-2.40 mg/dL Total Bilirubin 0.5 0.2-1.0 mg/dL Aspartate Amino Transf (AST/SGOT) 28 10-37 U/L Alanine Aminotransferase (ALT/SGPT) 17 12-78 U/L Alkaline Phosphatase 99 50-136 U/L C-Reactive Protein, Quantitative 243.90 H 0.5-3.0 mg/L Total Protein 5.5 L 6.0-8.3 g/dL Albumin 1.7 #L 3.5-5.0 g/dL Procalcitonin > 200.00 H 0.05-0.5 ng/mL Lactic Acid Level 1.6 0.8-2.5 mmol/L Direct Bilirubin 0.3 0.0-0.3 mg/dL Lactate Dehydrogenase 319 H 81-234 U/L Troponin I High Sensitivity 47 4-75 ng/L Coagulation Labs: Test 07/14/25 04:37 Range/Units Prothrombin Time 10.3 9.6-11.6 SEC Prothromb Time International Ratio 0.97 0.85-1.15 Activated Partial Thromboplast Time 32.8 26.3-35.5 SEC DIAGNOSTICS / RADIOLOGY RESULTS: [ ] PLAN: NEURO: Minimize central acting medications as possible. Maintain fall precautions, adequate lighting during the day PULMONARY: Supplemental 02 as needed. Maintain aspiration precautions at all times CARDIOVASCULAR: Follow hemodynamics. Vital signs per facility protocol GI & NUTRITION: Continue with nutritional support. Continue stool softeners and laxatives as needed. KIDNEYS & ELECTROLYTES: Strict monitoring of intake, output and overall fluid balance. Avoid nephrotoxic medications to the extent possible. Medications to be dosed according to renal function. Monitor electrolytes and replace as needed ENDOCRINE: Maintain blood glucose between 100-180 at all times. Hypoglycemia protocol in place INFECTIOUS DISEASE: Trend temperature, WBC and procalcitonin level Follow cultures, deescalate antibiotics as soon as possible. Panculture if new onset fever ONCOLOGY/HEMATOLOGY/COAGULATION: Monitor for s/s of bleeding Monitor hemoglobin, coagulation studies as needed SKIN: Pressure ulcer prevention per facility protocol Specialty mattress ORTHO/REHAB: Continue PT/OT Prophylaxis: Continue GI and DVT prophylaxis Code Status: Full Resuscitation Disposition: [facility] Jul 14, 2025 13:28
[2025-07-14 14:18] LABS: INFLUENZA TYPE A Negative For Type A (NEGATIVE); INFLUENZA TYPE B Negative For Type B (NEGATIVE)
[2025-07-14 14:19] LABS: COVID19 (SARS ANTIGEN RAPID) PRESUMPTIVE NEGATIVE (NEGATIVE)
--- NOTE | 2025-07-14 16:30 | NUR ---
DCP: INITIAL ASSESSMENT Patient lives with girlfriend, Quinton Lucia. He has no home services. Patient attends dialysis at [facility] in [place]. His girlfriend assists with transportation. Patient is able to complete ADLs independently but does not drive. PCP is Dr. Etienne Mcclendon. Pharmacy is [facility] located on [facility] in [place]. Patient voiced no safety concerns regarding returning home and states he has no difficulty with housing or buying food. DCP is home.
--- NOTE | 2025-07-14 19:01 | CONS ---
INFECTIOUS DISEASE CONSULTATION REQUESTING PHYSICIAN: Joy Chester NP. REASON FOR CONSULTATION: Dialysis catheter infection and bacteremia. HISTORY OF PRESENT ILLNESS: A 35-year-old male with a history of hypertension, diabetes mellitus, ESRD and osteomyelitis presented to the hospital with fever and chills. The patient has accompanied decrease oral intake and generalized body weakness. The patient was in the emergency room earlier, treated and released. The patient now reported to the hospital due to finding of positive blood culture. The patient was seen by General Surgery and underwent removal of PermCath. Blood culture done this admission growing gram positive cocci. The patient is at present on vancomycin and Zosyn. No cough. No hemoptysis or pleuritic pain. PAST MEDICAL HISTORY: Hypertension. Diabetes mellitus. ESRD, on dialysis. Right foot osteomyelitis. PAST SURGICAL HISTORY: Right fifth toe amputation. AV fistula. PermCath placement. ALLERGIES: No known drug allergies. CURRENT MEDICATIONS: Vancomycin. Zosyn. . Tylenol. . SOCIAL HISTORY: No alcohol, tobacco or illicit drug use. FAMILY HISTORY: Positive for diabetes mellitus. REVIEW OF SYSTEMS: Greater than 10 systems were reviewed, negative except as documented above. PHYSICAL EXAMINATION: GENERAL: Young male, awake. VITAL SIGNS: Temperature 97.3, pulse 71, respiratory rate 18, BP 129/67. EYES: No icterus. Pupils equal and reactive. HENT: No oral thrush seen. Moist oral mucosa. NECK: Supple. No JVD or thyromegaly. LUNGS: Good air entry. No rales, no rhonchi. CARDIOVASCULAR: S1 and S2. Regular. No murmur or gallop. ABDOMEN: Full, soft, nontender. Bowel sound is present. CENTRAL NERVOUS SYSTEM: Awake, alert, oriented x 3. No focal deficits. SKIN: No rashes, no itchiness. LYMPHATIC: No peripheral lymphadenopathy. BACK: No deformity. No pressure ulcer. MUSCULOSKELETAL: No joint swelling erythema, or tenderness. LABORATORY DATA: Procalcitonin greater than 200, ESR 40. Sodium 133, potassium 3.7, BUN 54, creatinine , WBC 17.5, hemoglobin 9.3, platelets 162. Blood culture growing gram positive cocci. The dialysis sites are unremarkable. 2D echocardiogram is pending. ASSESSMENT: A 35-year-old male presenting with fever, chills and poor dietary intake. Dialysis catheter infection with Staphylococcus. Polymicrobial bacteremia. End-stage renal disease, on dialysis. Hypertension. Diabetes mellitus. Anemia. PLAN: Continue vancomycin. Continue Zosyn. Follow-up echocardiogram results. Follow-up cultures. Continue nutritional support. Continue pain management. Continue antiemetics. Further recommendation will depend on culture results. Thank you for allowing me to participate in the care of this patient. TID: [id number] RECEIPT: [id number] MTDD
--- NOTE | 2025-07-14 22:51 | NUR ---
REPORT GIVEN TO KI AVALOS, ALL QUESTIONS ANSWERED, NO CONCERNS VOICED. PATIENT TO TRANSFER TO ROOM 401
--- NOTE | 2025-07-14 22:53 | HMCSR ---
APPROVED REPORT EXAM: Two-dimensional and M-mode echocardiogram with Doppler and color Doppler. INDICATION ICD: Bacteremia, gram positive and gram negative, r/o any vegetations 2D Dimensions RVDd 4.1 cm LVEF(%) 56.7 (>50%) LVED Vol(simp.) 146.0 mL IVSd 1.1 (0.7-1.1cm) FS(%) 30 % LVES Vol(simp.) 57.0 mL LVDd 5.4 (3.8-5.6cm) LA (2D) 3.6 (1.6-4.0cm) LVEF(%, simp.) 61 % PWd 1.3 (0.7-1.1cm) Ao Root(2D) 3.0 (2.0-3.7cm) LA ESV INDEX (BP) 31.09 mL/m2 IVSs 1.3 cm LVOT diam 2.3 (1.8-2.4cm) LVDs 3.7 (2.5-4.0cm) IVC diam 2.2 cm PWs 2.0 cm Deformation Strain Apical 4 -14.9 % Apical 2 -14.3 % Apical 3 -7.0 % Global Strain -12.0 % M-Mode Dimensions EPSS 1.7 cm LA (MM) 3.8 (1.6-4.0cm) Ao Root(MM) 3.2 (2.0-3.7cm) Aortic Valve AoV Vmax 1.6 m/s Ao Peak GR 10.5 mmHg LVOT Vmax 1.0 m/s AoV VTI 0.3 m Ao Mean GR 5.8 mmHg LVOT VTI 0.22 m CORNELIUS (VMAX) 2.53 cm2 CORNELIUS (VTI) 2.6 cm2 Mitral Valve MV E Vmax 107.1 cm/s DECEL Time 161 ms MV A Vmax 89.9 cm/s P 1/2 T 56 ms E/A ratio 1.2 MVA (PHT) 3.9 cm2 TDI E/E' Medial 14.8 E/E' Lateral 10.9 Medial E' Peak V 7.26 cm/s Lateral E' Peak V 9.86 cm/s Pulmonary Valve PV Vmax 1.2 m/s PV VTI 0.23 m PV Mean GR 3.3 mmHg PV Peak GR 5.9 mmHg Tricuspid Valve TR Vmax 2.7 m/s RAP (EST) 3 mmHg RVSP 34.4 mmHg TR Peak GR 31.4 mmHg Left Ventricle The left ventricle is normal size. Normal left ventricular systolic wall motion. Mild concentric left ventricular hypertrophy. Left ventricular systolic function is normal, estimated LVEF is 55 to 60%. The left ventricular diastolic function is normal. Right Ventricle The right ventricle is normal size. The right ventricular systolic function is normal. Atria The left atrium size is normal. The right atrium size is normal. Aortic Valve Aortic valve is trileaflet. No aortic regurgitation is present. There are no vegetations seen on the aortic valve. There is no aortic valvular stenosis. Mitral Valve The mitral valve is normal in structure. The leaflets are mildly thickened. GLS -12.0% Trace mitral regurgitation. There are no vegetations seen on the mitral valve. There is no mitral valve stenosis. Tricuspid Valve The tricuspid valve is normal in structure. Trace tricuspid regurgitation. RVSP is 13 mmHg. There are no vegetations seen on the tricuspid valve. Pulmonic Valve Pulmonic valve is not well visualized. Great Vessels The aortic root is normal in size. IVC is not well visualized. Pericardium No pericardial effusion. Other Information Quality : Adequate Conclusion The cardiac chambers are normal in size. Mild concentric left ventricular hypertrophy. Normal left ventricular systolic wall motion. Left ventricular systolic function is normal, estimated LVEF is 55 to 60%. The left ventricular diastolic function is normal. Trace mitral regurgitation. Trace tricuspid regurgitation. PASP is 16 mmHg. No pericardial effusion.
--- NOTE | 2025-07-14 23:37 | NUR ---
Pt. arrived to room 401 at 2305. Patient arrived to room 401. No complaints of pain upon arrival. Patient ambulated to the restroom and back. Patient reconnected to IV zosyn. VS taken by Eugenie MENDOZA. Patient oriented to the room. No questions upon arrival. Bed locked in the lowest position, remote within reach, water on table, cellphone on table, belongings placed on the shelf, call light within reach.
[2025-07-15] VITALS (8 sets, daily range): BP systolic 105–142; BP diastolic 63–77; PULSE 71–78; RESP 16–18; TEMP 97.9–98.3; O2SAT 97–99
[2025-07-15 04:40] LABS: HEPATITIS B CORE AB TOTAL Non-Reactive (Nonreactive)
[2025-07-15 05:52] LABS: NUCLEATED RED BLOOD CELLS 0.0 % (0.0-0.19); PLATELET COUNT (AUTO) 215.0 K/uL (130-400); RED BLOOD CELL COUNT(AUTO) 3.07 MIL/uL (4.50-6.20); RED CELL DISTRIBUTION WIDTH 13.1 % (11.0-15.5); WHITE BLOOD COUNT (AUTO) 18.1 K/uL (4.8-10.8)
[2025-07-15 06:19] LABS: ASPARTATE AMINOTRANSFERASE 22.0 U/L (10-37); GLOMERULAR FILTR. RATE CALC 8.0 mL/min (>90); GLUCOSE,RANDOM 301.0 mg/dL (70-105); SODIUM SERUM 135.0 mmol/L (136-145); TOTAL PROTEIN, SERUM 5.9 g/dL (6.0-8.3); UREA NITROGEN, BLOOD 57.0 mg/dL (7-18)
[2025-07-15 06:31] LABS: CREATININE 8.5 mg/dL (0.5-1.3)
--- NOTE | 2025-07-15 09:51 | PN ---
[facility] PROGRESS NOTE Date Patient Seen: Jul 15, 2025 Time of Visit: 09:51 Supervising Physician: Dr. Alves Primary Care Physician: LICHA LINARES Outpatient Specialists: [ ] Inpatient Consults: INFECTIOUS DISEASE, NEPHROLOGY, SURGERY. PROBLEM LIST: Sepsis End-stage renal disease on hemodialysis Community-acquired pneumonia Hyperglycemia in a type 2 diabetic Concern for right chest permanent catheter infection INTERVAL HISTORY: Patient evaluated at bedside with mother present, he is currently on room air at this time, denies any acute respiratory distress. Profile greater than 200 today, Gram-positive cocci in clusters on blood culture. Patient remains on Zosyn and vancomycin at this time. He continues with hemodialysis. As the patient currently has no respiratory distress pulmonary Services will sign off the case at this time. Thank you for allowing us to participate in the care of this patient Final recommendations Continue with current antibiotics Follow up pending cultures Continue with hemodialysis REVIEW OF SYSTEMS: 12 point ROS reviewed with patient. Pertinent positives mentioned above. Otherwise negative. PHYSICAL EXAM: GENERAL: alert, weak, awake oriented x 3 HEENT: EOMI, Sclera non icteric, moist mucosa NECK: Supple, no JVD, trachea midline LUNGS: Clear breath sounds bilaterally. No wheezes HEART: Regular rate and rhythm. Normal S1 and S2, without murmurs ABD: Abdomen soft, nontender. Bowel sounds present EXT: No clubbing cyanosis or edema NEURO: Alert and oriented to person, follows commands Vital Signs (last 8hr) Date Time Temp Pulse Resp B/P (MAP) Pulse Ox O2 Delivery O2 Flow Rate FiO2 07/15/25 08:00 98.2 71 16 122/66 99 Room Air 07/15/25 04:29 98.2 78 17 142/77 96 Room Air LABS: Hematology Labs: Test 07/15/25 04:54 07/14/25 03:11 07/13/25 12:38 Range/Units White Blood Count 18.1 H 4.8-10.8 K/uL Red Blood Count 3.07 L 4.50-6.20 MIL/uL Hemoglobin 9.5 L 14.0-18.0 g/dL Hematocrit 28.0 L 42-54 % Mean Corpuscular Volume 91.2 79-99 fL Mean Corpuscular Hemoglobin 30.9 27.0-33.0 pg Mean Corpuscular Hemoglobin Concent 33.9 32.0-36.0 g/dL Red Cell Distribution Width 13.1 11.0-15.5 % Platelet Count 215 # 130-400 K/uL Mean Platelet Volume 10.5 7.5-10.5 fL Nucleated Red Blood Cells 0.0 0.0-0.19 % Immature Granulocyte % (Auto) 0.6 0-1 % Neutrophils (%) (Auto) 76.4 40.0-77.0 % Lymphocytes (%) (Auto) 10.2 L 21.0-51.0 % Monocytes (%) (Auto) 9.6 3.0-13.0 % Eosinophils (%) (Auto) 2.7 0.0-8.0 % Basophils (%) (Auto) 0.5 0.0-5.0 % Neutrophils # (Auto) 13.4 H 1.8-7.7 K/uL Lymphocytes # (Auto) 1.8 1.0-4.8 K/uL Monocytes # (Auto) 1.7 H 0.1-1.0 K/uL Eosinophils # (Auto) 0.48 0.00-0.70 K/uL Basophils # (Auto) 0.09 0.00-0.20 K/uL Absolute Immature Granulocyte (auto 0.10 0-1 K/uL Erythrocyte Sedimentation Rate 48 H 0-15 MM/HR Chemistry Labs: Test 07/15/25 05:29 07/15/25 04:54 07/14/25 15:26 07/14/25 03:11 Range/Units Whole Blood Glucose 306 H 70-110 MG/DL Sodium Level 135 L 136-145 mmol/L Potassium Level 3.7 3.5-5.1 mmol/L Chloride Level 96 L 101-111 mmol/L Carbon Dioxide Level 27 21-32 mmol/L Blood Urea Nitrogen 57 H 7-18 mg/dL Creatinine 8.5 *H 0.5-1.3 mg/dL Glomerular Filtration Rate Calc 8 >90 mL/min Random Glucose 301 H 70-105 mg/dL Total Calcium 6.1 L 8.5-10.1 mg/dL Magnesium Level 2.30 1.80-2.40 mg/dL Total Bilirubin 0.3 0.2-1.0 mg/dL Aspartate Amino Transf (AST/SGOT) 22 10-37 U/L Alanine Aminotransferase (ALT/SGPT) 16 12-78 U/L Alkaline Phosphatase 131 50-136 U/L Total Protein 5.9 L 6.0-8.3 g/dL Albumin 1.8 L 3.5-5.0 g/dL Procalcitonin > 200.00 H 0.05-0.5 ng/mL Bedside Glucose Comment Notified Nurse C-Reactive Protein, Quantitative 243.90 H 0.5-3.0 mg/L Test 07/13/25 12:38 Range/Units Lactic Acid Level 1.6 0.8-2.5 mmol/L Direct Bilirubin 0.3 0.0-0.3 mg/dL Lactate Dehydrogenase 319 H 81-234 U/L Troponin I High Sensitivity 47 4-75 ng/L Coagulation Labs: Test 07/14/25 04:37 Range/Units Prothrombin Time 10.3 9.6-11.6 SEC Prothromb Time International Ratio 0.97 0.85-1.15 Activated Partial Thromboplast Time 32.8 26.3-35.5 SEC DIAGNOSTICS / RADIOLOGY RESULTS: [ ] PLAN: NEURO: Minimize central acting medications as possible. Maintain fall precautions, adequate lighting during the day PULMONARY: Supplemental 02 as needed. Maintain aspiration precautions at all times CARDIOVASCULAR: Follow hemodynamics. Vital signs per facility protocol GI & NUTRITION: Continue with nutritional support. Continue stool softeners and laxatives as needed. KIDNEYS & ELECTROLYTES: Strict monitoring of intake, output and overall fluid balance. Avoid nephrotoxic medications to the extent possible. Medications to be dosed according to renal function. Monitor electrolytes and replace as needed ENDOCRINE: Maintain blood glucose between 100-180 at all times. Hypoglycemia protocol in place INFECTIOUS DISEASE: Trend temperature, WBC and procalcitonin level Follow cultures, deescalate antibiotics as soon as possible. Panculture if new onset fever ONCOLOGY/HEMATOLOGY/COAGULATION: Monitor for s/s of bleeding Monitor hemoglobin, coagulation studies as needed SKIN: Pressure ulcer prevention per facility protocol Specialty mattress ORTHO/REHAB: Continue PT/OT Prophylaxis: Continue GI and DVT prophylaxis Code Status: Full Resuscitation Disposition: TOMMIE LEARY Jul 15, 2025 09:51
[2025-07-15 12:19] LABS: HEPATITIS B SURFACE ANTIBODY Positive (Reactive)
--- NOTE | 2025-07-15 15:32 | PN ---
[facility] PROGRESS NOTE Date of Service: Jul 15, 2025 Time of Service: 15:24 SUBJECTIVE: [35 year old male admitted due to fever, his HD catheter was removed by Dr Torres and tip was sent for cx. Patient was multiple bacteria growing in the blood culture, initial report showed gram negative, now gram positive. We have Dr tavera with antbx management. Today, WBC inc. to 18.1. Discussed the plan with patient and family, they verbalized understanding. ] REVIEW OF SYSTEMS CONSTITUTIONAL: reports having fevers, chills, malaise, asthenic for several days NEUROLOGICAL: Denies headache, amaurosis fugax, motor weakness, sensory deficit, vertigo/spinning sensation, gait abnormalities, or tremors. ENT: No hearing loss, otalgia, otorrhea, rhinitis, rhinorrhea, hoarseness, or sore throat. CARDIOVASCULAR: Denies any exertional angina, dyspnea on exertion, orthopnea, paroxysmal nocturnal dyspnea, palpitations, life-threatening arrhythmias, claudication. PULMONARY: Denies any shortness of breath, cough, phlegm/sputum, hemoptysis, pleuritic chest pain. SLEEP: Denies morning headaches, daytime somnolence or napping. Denies difficulty falling asleep, staying asleep, waking from sleep. Denies knowledge of snoring. GASTROINTESTINAL: nausea, vomiting, poor pral intake for several days GENITOURINARY: Denies frequency, urgency, nocturia, hematuria or incontinence (Storage/Irritative symptoms.) Low urinary stream, straining to void, urinary intermittency or hesitancy, splitting of the voiding stream, terminal dribbling. ENDOCRINOLOGIC: Denies polyuria, polydipsia, polyphagia or heat/cold intolerances. HEMATOLOGIC: Denies thrombophilia/previous clots, or coagulopathy/bleeding disorders. ONCOLOGIC: Denies personal history of malignancy. DERMATOLOGIC: Denies rashes or pruritus. PSYCHIATRIC: Denies any suicidal or homicidal ideation. Denies hallucinations. PHYSICAL EXAM GENERAL APPEARANCE: The patient is lethargic, able to answer, appears debilitated NEUROLOGICAL: Cranial nerves II-XII grossly intact. Motor is 5/5 in bilateral upper and lower extremities proximal to distal. No sensory deficits. HEENT: Face is symmetric. Pupils are equal and reactive. Extraocular movements are intact. NECK: Supple. No JVD. No thyromegaly. No submental, submandibular, pre- /postauricular, occipital or supraclavicular lymphadenopathy. CHEST: Normal chest expansion. No Telemetry. LUNGS: Absence of any rales, rhonchi or any wheezing. CARDIOVASCULAR: Regular. S1 and S2 normal. No appreciable rubs, murmurs or gallops. ABDOMEN: Soft, nontender, and nondistended. There is no rebound, voluntary guarding, or rigidity. : Deferred. No Millan. EXTREMITIES: Fistula noted of the left arm with thrill and bruit Vital Signs (last 8hr) Date Time Temp Pulse Resp B/P (MAP) Pulse Ox O2 Delivery O2 Flow Rate FiO2 07/15/25 12:00 98.2 73 18 137/67 98 Room Air 07/15/25 08:00 98.2 71 16 122/66 99 Room Air LABS: Laboratory: Test 07/15/25 11:43 07/15/25 04:54 07/14/25 15:26 07/14/25 13:45 Range/Units Whole Blood Glucose 253 H 70-110 MG/DL White Blood Count 18.1 H 4.8-10.8 K/uL Red Blood Count 3.07 L 4.50-6.20 MIL/uL Hemoglobin 9.5 L 14.0-18.0 g/dL Hematocrit 28.0 L 42-54 % Mean Corpuscular Volume 91.2 79-99 fL Mean Corpuscular Hemoglobin 30.9 27.0-33.0 pg Mean Corpuscular Hemoglobin Concent 33.9 32.0-36.0 g/dL Red Cell Distribution Width 13.1 11.0-15.5 % Platelet Count 215 # 130-400 K/uL Mean Platelet Volume 10.5 7.5-10.5 fL Nucleated Red Blood Cells 0.0 0.0-0.19 % Sodium Level 135 L 136-145 mmol/L Potassium Level 3.7 3.5-5.1 mmol/L Chloride Level 96 L 101-111 mmol/L Carbon Dioxide Level 27 21-32 mmol/L Blood Urea Nitrogen 57 H 7-18 mg/dL Creatinine 8.5 *H 0.5-1.3 mg/dL Glomerular Filtration Rate Calc 8 >90 mL/min Random Glucose 301 H 70-105 mg/dL Total Calcium 6.1 L 8.5-10.1 mg/dL Magnesium Level 2.30 1.80-2.40 mg/dL Total Bilirubin 0.3 0.2-1.0 mg/dL Aspartate Amino Transf (AST/SGOT) 22 10-37 U/L Alanine Aminotransferase (ALT/SGPT) 16 12-78 U/L Alkaline Phosphatase 131 50-136 U/L Total Protein 5.9 L 6.0-8.3 g/dL Albumin 1.8 L 3.5-5.0 g/dL Procalcitonin > 200.00 H 0.05-0.5 ng/mL Bedside Glucose Comment Notified Nurse Influenza Type A Antigen Negative For Type A NEGATIVE Influenza Type B Antigen Negative For Type B NEGATIVE SARS-CoV-2 Antigen (Rapid) PRESUMPTIVE NEGATIVE NEGATIVE Test 07/14/25 04:37 07/14/25 03:11 07/13/25 22:10 Range/Units Prothrombin Time 10.3 9.6-11.6 SEC Prothromb Time International Ratio 0.97 0.85-1.15 Activated Partial Thromboplast Time 32.8 26.3-35.5 SEC Hepatitis B Surface Antigen. Non-Reactive Nonreactive Hepatitis B Surface Antibody. Positive Reactive Hepatitis B Core Total Antibody. Non-Reactive Nonreactive Immature Granulocyte % (Auto) 0.6 0-1 % Neutrophils (%) (Auto) 76.4 40.0-77.0 % Lymphocytes (%) (Auto) 10.2 L 21.0-51.0 % Monocytes (%) (Auto) 9.6 3.0-13.0 % Eosinophils (%) (Auto) 2.7 0.0-8.0 % Basophils (%) (Auto) 0.5 0.0-5.0 % Neutrophils # (Auto) 13.4 H 1.8-7.7 K/uL Lymphocytes # (Auto) 1.8 1.0-4.8 K/uL Monocytes # (Auto) 1.7 H 0.1-1.0 K/uL Eosinophils # (Auto) 0.48 0.00-0.70 K/uL Basophils # (Auto) 0.09 0.00-0.20 K/uL Absolute Immature Granulocyte (auto 0.10 0-1 K/uL C-Reactive Protein, Quantitative 243.90 H 0.5-3.0 mg/L Urine Color YELLOW YELLOW Urine Appearance CLEAR CLEAR Urine pH 7.0 5.0-8.0 Urine Specific [place] 1.028 1.001-1.031 Urine Protein 600 H NEGATIVE mg/dL Urine Glucose (UA) >=1000 H NEGATIVE mg/dL Urine Ketones NEGATIVE NEGATIVE mg/dL Urine Occult Blood MODERATE H NEGATIVE Urine Nitrate NEGATIVE NEGATIVE Urine Bilirubin NEGATIVE NEGATIVE mg/dL Urine Urobilinogen 0.2 0.2-1.0 mg/dL Urine Leukocyte Esterase NEGATIVE NEGATIVE Chely/uL Urine RBC 2-5 H 0-1 /HPF Urine WBC 11-25 H 0-1 /HPF Urine Squamous Epithelial Cells RARE 0-2 /HPF Urine Bacteria RARE None Seen /HPF Current Medications Medications (Trade) Dose Ordered Sig/Jeff Route PRN Reason Start Time Stop Time Status Last Admin Dose Admin Acetaminophen (TYLenol 325MG TAB) 650 mg Q6H PRN PO MILD PAIN (1-3) 07/13/25 15:30 08/12/25 15:29 Dextrose (D50w) 50 ml AD PRN IV HYPOGLYCEMIA PROTOCOL 07/13/25 15:30 08/12/25 15:29 Famotidine (Pepcid 20mg Tab) 20 mg QMOWEFR@1900 PO 07/13/25 21:00 08/12/25 20:59 07/13/25 21:18 20 MG Fentanyl Citrate (FENTanyl CITRate PF 50 MCG/ 1 ML 2ML VIAL) 25 mcg Q5MIN PRN IVP PAIN LEVEL 7 TO 10 07/14/25 08:30 07/14/25 08:49 DC Glucagon (Glucagon 1mg Kit) 1 mg AD PRN IM HYPOGLYCEMIA PROTOCOL 07/13/25 15:30 08/12/25 15:29 Heparin Sodium (Porcine) (HEParin 5,000 UNIT VIAL) 5,000 unit BID SQ 07/13/25 21:00 08/12/25 20:59 07/15/25 10:19 5,000 UNIT Home Med (Home Medication) (Ferric Citrate 210MG -... TID PO 07/15/25 09:00 08/14/25 08:59 Hydralazine HCl (APRESOLine 20MG INJ) 5 mg Q6H PRN IV ADMINISTER FOR SBP > 160 07/14/25 06:00 08/13/25 05:59 Insulin Glargine (LANtus 100 UNITS/ML 10 ML VIAL) 12 units DAILY SQ 07/15/25 09:00 08/14/25 08:59 07/15/25 10:19 12 UNITS Insulin Human Regular (humuLIN R 100 UNIT/ML 3ML) INSULIN SLIDING SCAL... ACHS SQ 07/13/25 16:30 08/12/25 16:29 07/15/25 12:34 5 UNIT Ketorolac Tromethamine (toRADol) 30 mg AD PRN IV PAIN LEVEL 1 TO 3 07/14/25 08:30 07/14/25 08:13 DC Levothyroxine Sodium (SYNTHroid 50MCG TAB) 50 mcg SYN PO 07/16/25 06:30 08/15/25 06:29 Metoclopramide HCl (regLAN 10MG IV) 10 mg AD PRN IVP NAUSEA/VOMITING 07/14/25 08:30 07/14/25 08:49 DC Morphine Sulfate (morPHINE 2MG SYG) 2 mg AD PRN IVP PAIN LEVEL 4 TO 6 07/14/25 08:30 07/14/25 08:49 DC Naloxone HCl (NARcan 0.4mg/1 mL) 0.1 mg AD PRN IVP RESPIRATORY SYMPTOMS 07/14/25 23:00 07/14/25 08:49 DC Nifedipine (adALAT 30MG) 60 mg DAILY PO 07/15/25 09:00 08/14/25 08:59 07/15/25 10:20 60 MG Ondansetron HCl (zoFRAN 4MG INJ) 4 mg AD PRN IVP NAUSEA/VOMITING 07/14/25 08:30 07/14/25 08:49 DC Ondansetron HCl (zoFRAN 4MG INJ) 4 mg Q6H PRN IVP NAUSEA/VOMITING 07/13/25 15:30 08/12/25 15:29 Piperacillin Sod/ Tazobactam Sod (Zosyn 3.375gm+NS 50ml) 3.375 gm BID IVPB 07/13/25 21:00 07/23/25 20:59 07/15/25 10:20 3.375 GM Promethazine HCl (Phenergan) 25 mg AD PRN IM NAUSEA/VOMITING 07/14/25 08:30 07/14/25 08:49 DC Sodium Chloride 1,000 ml @ 0 mls/hr ONCE IV 07/14/25 11:00 08/13/25 10:59 12/6/25 12:55 100 MLS/HR Thiamine HCl (Vitamin B-1) 100 mg Q24H IVP 07/13/25 15:30 08/12/25 15:29 07/15/25 14:52 100 MG Vancomycin HCl 100 ml @ 100 mls/hr QMOWEFR[DIALYSIS] IV 07/16/25 16:00 07/26/25 15:59 Vancomycin HCl (Vancomycin Protocol) 1 each AD IV 07/13/25 12:30 07/27/25 12:29 Vitamin B Complex/ Vit C/Folic Acid (Nephrovite Tablet) 1 cap DAILY PO 07/14/25 09:00 08/13/25 08:59 07/15/25 10:20 1 CAP DIAGNOSTICS / RADIOLOGY: [ ] ASSESSMENT: Gram-negative sepsis, POA 07/09/25 BC showed- Enterobacter agglomerans Now Gram-positive bacteremia showing on BC, POA Rule out complicated UTI with pyelonephritis, POA Hypotension secondary to sepsis as outpatient, POA Recent history of enteritis, POA Recent microbiological cultures positive for Enterobacter in blood, 07/09/2025, POA Rule out dialysis catheter associated infection, POA History of ESRD, POA Type 2 diabetes mellitus, POA Hypertension, POA Hyperlipidemia, POA History of diabetic foot ulcer in 2022 requiring right foot 5th digit partial ray amputation, POA PLAN: Patient will be admitted to cardiac telemetry floor We will monitor blood pressure closely, maintain map greater than 65 Blood cultures will be obtained, so far showing gram +, h/o gram - bacteremia, C/w IV antbx Vancomycin and Zosyn, we will follow rec's from Dr Tavera S/p catheter tip removal by Dr Torres POD #[address] was reviewed which showed findings of possible pyelonephritis/complicated UTI, we will obtain a urinalysis, culture to ensure patient does not have a UTI Consultation with Dr. Prado with Nephrology will be requested Appreicate Dr Prado's rec's Continua with [facility], and [facility] glucometer check, Lantus 12 units daily started toda y due to persistent hyperglycemia. Labs repeated in AM Gi and DVT ppx Case discussed with Dr. Gomez above plan was formulated ATTESTATION BY PHYSICIAN I have seen and examined the patient. I reviewed the documentation, medical decision making, and treatment plan as noted by the mid-level provider above. I agree with the findings and plan of care. LATOYA GOMEZ MD, [facility] Jul 15, 2025 15:32
--- NOTE | 2025-07-15 21:54 | PN ---
INFECTIOUS DISEASE PROGRESS NOTE Date of Service: Jul 15, 2025 SUBJECTIVE: This is a 35 year old male patient who was seen and examined at bedside in room 401. Patient is awake, alert and oriented x 3. The preliminary blood culture results is growing Gram-positive cocci in clusters 1 of 2 sets and no growth reported on the culture from the tip of the right PermCath. Patient was updated with these findings. The WBC remains high at 18.1 but remains afebrile for the past 24 hours. We will continue on vancomycin and Zosyn IV. PHYSICAL EXAM EYES: Anicteric. Pupils equal and reactive. HENT: No oral thrush seen, moist Oral mucosa. NECK: Supple, no JVD or thyromegaly. LUNGS: Good air entry. No rales, no rhonchi. CARDIOVASCULAR: S1, S2 regular. No murmur heard. ABDOMEN: Soft, non tender, bowel sounds present. CENTRAL NERVOUS SYSTEM: Awake, alert, oriented x 3. SKIN: No rashes, no swelling. LYMPHATICS: No peripheral lymphadenopathy MUSCULOSKELETAL: No joint swelling, erythema or tenderness. EXTREMITIES: No cyanosis or clubbing. Right 5th toe amputation. BACK: No deformity, no pressure ulcer. GENITOURINARY: No dysuria or hematuria. Vital Sign (Last 12 Hours) 07/15/25 07/15/25 07/15/25 12:00 16:00 20:00 Temp 98.2 97.9 98.1 Pulse 73 72 71 Resp 18 16 17 B/P (MAP) 137/67 121/70 105/63 Pulse Ox 98 96 97 O2 Delivery Room Air Room Air Room Air Intake & Output (last 24hrs) 07/14/25 07/14/25 07/15/25 15:00 23:00 07:00 Intake Total 530.0 ml 240 ml 0 ml Output Total 1500 ml Balance -970.0 ml 240 ml 0 ml LABS: Laboratory: Test 07/15/25 19:29 07/15/25 04:54 07/14/25 15:26 07/14/25 13:45 Range/Units Whole Blood Glucose 124 #H 70-110 MG/DL White Blood Count 18.1 H 4.8-10.8 K/uL Red Blood Count 3.07 L 4.50-6.20 MIL/uL Hemoglobin 9.5 L 14.0-18.0 g/dL Hematocrit 28.0 L 42-54 % Mean Corpuscular Volume 91.2 79-99 fL Mean Corpuscular Hemoglobin 30.9 27.0-33.0 pg Mean Corpuscular Hemoglobin Concent 33.9 32.0-36.0 g/dL Red Cell Distribution Width 13.1 11.0-15.5 % Platelet Count 215 # 130-400 K/uL Mean Platelet Volume 10.5 7.5-10.5 fL Nucleated Red Blood Cells 0.0 0.0-0.19 % Sodium Level 135 L 136-145 mmol/L Potassium Level 3.7 3.5-5.1 mmol/L Chloride Level 96 L 101-111 mmol/L Carbon Dioxide Level 27 21-32 mmol/L Blood Urea Nitrogen 57 H 7-18 mg/dL Creatinine 8.5 *H 0.5-1.3 mg/dL Glomerular Filtration Rate Calc 8 >90 mL/min Random Glucose 301 H 70-105 mg/dL Total Calcium 6.1 L 8.5-10.1 mg/dL Magnesium Level 2.30 1.80-2.40 mg/dL Total Bilirubin 0.3 0.2-1.0 mg/dL Aspartate Amino Transf (AST/SGOT) 22 10-37 U/L Alanine Aminotransferase (ALT/SGPT) 16 12-78 U/L Alkaline Phosphatase 131 50-136 U/L Total Protein 5.9 L 6.0-8.3 g/dL Albumin 1.8 L 3.5-5.0 g/dL Procalcitonin > 200.00 H 0.05-0.5 ng/mL Bedside Glucose Comment Notified Nurse Influenza Type A Antigen Negative For Type A NEGATIVE Influenza Type B Antigen Negative For Type B NEGATIVE SARS-CoV-2 Antigen (Rapid) PRESUMPTIVE NEGATIVE NEGATIVE Test 07/14/25 04:37 07/14/25 03:11 07/13/25 22:10 Range/Units Prothrombin Time 10.3 9.6-11.6 SEC Prothromb Time International Ratio 0.97 0.85-1.15 Activated Partial Thromboplast Time 32.8 26.3-35.5 SEC Hepatitis B Surface Antigen. Non-Reactive Nonreactive Hepatitis B Surface Antibody. Positive Reactive Hepatitis B Core Total Antibody. Non-Reactive Nonreactive Immature Granulocyte % (Auto) 0.6 0-1 % Neutrophils (%) (Auto) 76.4 40.0-77.0 % Lymphocytes (%) (Auto) 10.2 L 21.0-51.0 % Monocytes (%) (Auto) 9.6 3.0-13.0 % Eosinophils (%) (Auto) 2.7 0.0-8.0 % Basophils (%) (Auto) 0.5 0.0-5.0 % Neutrophils # (Auto) 13.4 H 1.8-7.7 K/uL Lymphocytes # (Auto) 1.8 1.0-4.8 K/uL Monocytes # (Auto) 1.7 H 0.1-1.0 K/uL Eosinophils # (Auto) 0.48 0.00-0.70 K/uL Basophils # (Auto) 0.09 0.00-0.20 K/uL Absolute Immature Granulocyte (auto 0.10 0-1 K/uL C-Reactive Protein, Quantitative 243.90 H 0.5-3.0 mg/L Urine Color YELLOW YELLOW Urine Appearance CLEAR CLEAR Urine pH 7.0 5.0-8.0 Urine Specific [place] 1.028 1.001-1.031 Urine Protein 600 H NEGATIVE mg/dL Urine Glucose (UA) >=1000 H NEGATIVE mg/dL Urine Ketones NEGATIVE NEGATIVE mg/dL Urine Occult Blood MODERATE H NEGATIVE Urine Nitrate NEGATIVE NEGATIVE Urine Bilirubin NEGATIVE NEGATIVE mg/dL Urine Urobilinogen 0.2 0.2-1.0 mg/dL Urine Leukocyte Esterase NEGATIVE NEGATIVE Chely/uL Urine RBC 2-5 H 0-1 /HPF Urine WBC 11-25 H 0-1 /HPF Urine Squamous Epithelial Cells RARE 0-2 /HPF Urine Bacteria RARE None Seen /HPF DIAGNOSTICS / RADIOLOGY: PATIENT: BO FELDMAN ACCT: [id number] LOC: [facility] U: [id number] AGE/SX: 35/M ROOM: 222 RE07/13/[address]: MARLENE MAYO MD : 1990 BED: 1 DIS: STATUS: ADM IN TLOC: SPEC: [id number] ARNOLD: 07/13/25 STATUS: DARIANA REQ: [id number] RECD: 07/13/[address] [facility] [address]: LUCHO WADSWORTH MD SOURCE: BLOOD ENTR: 07/13/25-1233 [facility] DR: JOSE[facility] CARLSON [facility] FAIZAN SMITH MD ORDERED: BLOOD CULTURE COMMENTS: What is the Source? BLOOD Procedure Result Georgi Date-Time BLOOD CULT Final 07/14/25-918 GRAM STAIN: GRAM POSITIVE COCCI IN CLUSTERS 1 OF 2 SET. PEDI BOTTLES CALLED TO NURSE NDIAYE 07/14/25 AT 0918 BY [facility]. ASSESSMENT: Gram-positive bacteremia. Leukocytosis. End-stage renal disease, on dialysis. Diabetes mellitus. PLAN: Continue vancomycin per pharmacy protocol. Continue Zosyn. Continue GI prophylaxis. Continue antidiabetics. 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 This case was reviewed and discussed with my supervising physician Dr. Angeles and the above assessment and plan was formulated and agreed upon. ATTESTATION BY PHYSICIAN I have seen and examined the patient. I reviewed the documentation, medical decision making, and treatment plan as noted by the mid-level provider above. I agree with the findings and plan of care. NICOL ANGELES MD, [facility] Jul 15, 2025 21:54
[2025-07-16] VITALS (23 sets, daily range): BP systolic 118–161; BP diastolic 62–85; PULSE 71–85; RESP 16–20; TEMP 98–99.1; O2SAT 98
[2025-07-16 03:26] LABS: NUCLEATED RED BLOOD CELLS 0.0 % (0.0-0.19); PLATELET COUNT (AUTO) 208.0 K/uL (130-400); RED BLOOD CELL COUNT(AUTO) 2.89 MIL/uL (4.50-6.20); RED CELL DISTRIBUTION WIDTH 13.2 % (11.0-15.5); WHITE BLOOD COUNT (AUTO) 15.4 K/uL (4.8-10.8)
[2025-07-16 03:38] LABS: GLOMERULAR FILTR. RATE CALC 6.0 mL/min (>90); GLUCOSE,RANDOM 182.0 mg/dL (70-105); SODIUM SERUM 138.0 mmol/L (136-145)
[2025-07-16 03:54] LABS: CREATININE 10.5 mg/dL (0.5-1.3); UREA NITROGEN, BLOOD 75.0 mg/dL (7-18)
[2025-07-16 11:42] LABS: NUCLEATED RED BLOOD CELLS 0.0 % (0.0-0.19); PLATELET COUNT (AUTO) 261.0 K/uL (130-400); RED BLOOD CELL COUNT(AUTO) 3.23 MIL/uL (4.50-6.20); RED CELL DISTRIBUTION WIDTH 13.2 % (11.0-15.5); WHITE BLOOD COUNT (AUTO) 13.3 K/uL (4.8-10.8)
--- NOTE | 2025-07-16 12:44 | PN ---
[facility] PROGRESS NOTE Date of Service: Jul 16, 2025 Time of Service: 12:42 SUBJECTIVE: [35 year old male admitted due to fever, his HD catheter was removed by Dr Torres and tip was sent for cx. Patient was multiple bacteria growing in the blood culture, initial report showed gram negative, now gram positive. We have Dr tavera with [facility] management. Today, WBC inc. to 18.1. Discussed the plan with patient and family, they verbalized understanding. ] 07/16 patient remains admitted to the medical floor, alert and oriented x3 at the time of my visit. Status post interval removal of PermCath with tip sent off for Gram stain, aerobic and anaerobic culture and sensitivity 09/14/2024. Patient is scheduled for hemodialysis today. We will continue with broad-spectr um IV antibiotics, continue to trend WBC in a.m., continue to follow ID input and recommendations. Plan of action discussed with the patient and family at bedside, all questions answered, agreed and understood the information provided. REVIEW OF SYSTEMS CONSTITUTIONAL: reports having fevers, chills, malaise, asthenic for several days NEUROLOGICAL: Denies headache, amaurosis fugax, motor weakness, sensory deficit, vertigo/spinning sensation, gait abnormalities, or tremors. ENT: No hearing loss, otalgia, otorrhea, rhinitis, rhinorrhea, hoarseness, or sore throat. CARDIOVASCULAR: Denies any exertional angina, dyspnea on exertion, orthopnea, paroxysmal nocturnal dyspnea, palpitations, life-threatening arrhythmias, claudication. PULMONARY: Denies any shortness of breath, cough, phlegm/sputum, hemoptysis, pleuritic chest pain. SLEEP: Denies morning headaches, daytime somnolence or napping. Denies difficulty falling asleep, staying asleep, waking from sleep. Denies knowledge of snoring. GASTROINTESTINAL: nausea, vomiting, poor pral intake for several days GENITOURINARY: Denies frequency, urgency, nocturia, hematuria or incontinence (Storage/Irritative symptoms.) Low urinary stream, straining to void, urinary intermittency or hesitancy, splitting of the voiding stream, terminal dribbling. ENDOCRINOLOGIC: Denies polyuria, polydipsia, polyphagia or heat/cold intolerances. HEMATOLOGIC: Denies thrombophilia/previous clots, or coagulopathy/bleeding disorders. ONCOLOGIC: Denies personal history of malignancy. DERMATOLOGIC: Denies rashes or pruritus. PSYCHIATRIC: Denies any suicidal or homicidal ideation. Denies hallucinations. PHYSICAL EXAM GENERAL APPEARANCE: The patient is lethargic, able to answer, appears debilitated NEUROLOGICAL: Cranial nerves II-XII grossly intact. Motor is 5/5 in bilateral upper and lower extremities proximal to distal. No sensory deficits. HEENT: Face is symmetric. Pupils are equal and reactive. Extraocular movements are intact. NECK: Supple. No JVD. No thyromegaly. No submental, submandibular, pre- /postauricular, occipital or supraclavicular lymphadenopathy. CHEST: Normal chest expansion. No Telemetry. LUNGS: Absence of any rales, rhonchi or any wheezing. CARDIOVASCULAR: Regular. S1 and S2 normal. No appreciable rubs, murmurs or gallops. ABDOMEN: Soft, nontender, and nondistended. There is no rebound, voluntary guarding, or rigidity. : Deferred. No Millan. EXTREMITIES: Fistula noted of the left arm with thrill and bruit Vital Signs (last 8hr) Date Time Temp Pulse Resp B/P (MAP) Pulse Ox O2 Delivery O2 Flow Rate FiO2 07/16/25 08:00 98 Room Air* 0 21 07/16/25 07:26 98.2 71 18 118/70 98 Room Air LABS: Laboratory: Test 07/16/25 11:33 07/16/25 10:55 07/16/25 03:14 07/15/25 04:54 Range/Units White Blood Count 13.3 H 4.8-10.8 K/uL Red Blood Count 3.23 L 4.50-6.20 MIL/uL Hemoglobin 9.9 L 14.0-18.0 g/dL Hematocrit 30.1 L 42-54 % Mean Corpuscular Volume 93.2 79-99 fL Mean Corpuscular Hemoglobin 30.7 27.0-33.0 pg Mean Corpuscular Hemoglobin Concent 32.9 32.0-36.0 g/dL Red Cell Distribution Width 13.2 11.0-15.5 % Platelet Count 261 # 130-400 K/uL Mean Platelet Volume 10.1 7.5-10.5 fL Nucleated Red Blood Cells 0.0 0.0-0.19 % Whole Blood Glucose 228 H 70-110 MG/DL Sodium Level 138 136-145 mmol/L Potassium Level 4.0 3.5-5.1 mmol/L Chloride Level 97 L 101-111 mmol/L Carbon Dioxide Level 25 21-32 mmol/L Blood Urea Nitrogen 75 *H 7-18 mg/dL Creatinine 10.5 *H 0.5-1.3 mg/dL Glomerular Filtration Rate Calc 6 >90 mL/min Random Glucose 182 H 70-105 mg/dL Total Calcium 5.6 *L 8.5-10.1 mg/dL Magnesium Level 2.20 1.80-2.40 mg/dL Total Bilirubin 0.3 0.2-1.0 mg/dL Aspartate Amino Transf (AST/SGOT) 22 10-37 U/L Alanine Aminotransferase (ALT/SGPT) 16 12-78 U/L Alkaline Phosphatase 131 50-136 U/L Total Protein 5.9 L 6.0-8.3 g/dL Albumin 1.8 L 3.5-5.0 g/dL Procalcitonin > 200.00 H 0.05-0.5 ng/mL Test 07/14/25 15:26 07/14/25 13:45 Range/Units Bedside Glucose Comment Notified Nurse Influenza Type A Antigen Negative For Type A NEGATIVE Influenza Type B Antigen Negative For Type B NEGATIVE SARS-CoV-2 Antigen (Rapid) PRESUMPTIVE NEGATIVE NEGATIVE Current Medications Medications (Trade) Dose Ordered Sig/Jeff Route PRN Reason Start Time Stop Time Status Last Admin Dose Admin Acetaminophen (TYLenol 325MG TAB) 650 mg Q6H PRN PO MILD PAIN (1-3) 07/13/25 15:30 08/12/25 15:29 Dextrose (D50w) 50 ml AD PRN IV HYPOGLYCEMIA PROTOCOL 07/13/25 15:30 08/12/25 15:29 Famotidine (Pepcid 20mg Tab) 20 mg QMOWEFR@1900 PO 07/13/25 21:00 08/12/25 20:59 07/13/25 21:18 20 MG Fentanyl Citrate (FENTanyl CITRate PF 50 MCG/ 1 ML 2ML VIAL) 25 mcg Q5MIN PRN IVP PAIN LEVEL 7 TO 10 07/14/25 08:30 07/14/25 08:49 DC Glucagon (Glucagon 1mg Kit) 1 mg AD PRN IM HYPOGLYCEMIA PROTOCOL 07/13/25 15:30 08/12/25 15:29 Heparin Sodium (Porcine) (HEParin 5,000 UNIT VIAL) 5,000 unit BID SQ 07/13/25 21:00 08/12/25 20:59 07/16/25 09:35 5,000 UNIT Home Med (Home Medication) (Ferric Citrate 210MG -... TID PO 07/15/25 09:00 08/14/25 08:59 Hydralazine HCl (APRESOLine 20MG INJ) 5 mg Q6H PRN IV ADMINISTER FOR SBP > 160 07/14/25 06:00 08/13/25 05:59 Insulin Glargine (LANtus 100 UNITS/ML 10 ML VIAL) 12 units DAILY SQ 07/15/25 09:00 08/14/25 08:59 07/16/25 09:34 12 UNITS Insulin Human Regular (humuLIN R 100 UNIT/ML 3ML) INSULIN SLIDING SCAL... ACHS SQ 07/13/25 16:30 08/12/25 16:29 07/15/25 17:01 8 UNIT Ketorolac Tromethamine (toRADol) 30 mg AD PRN IV PAIN LEVEL 1 TO 3 07/14/25 08:30 07/14/25 08:13 DC Levothyroxine Sodium (SYNTHroid 50MCG TAB) 50 mcg SYN PO 07/16/25 06:30 08/15/25 06:29 07/16/25 06:01 50 MCG Metoclopramide HCl (regLAN 10MG IV) 10 mg AD PRN IVP NAUSEA/VOMITING 07/14/25 08:30 07/14/25 08:49 DC Morphine Sulfate (morPHINE 2MG SYG) 2 mg AD PRN IVP PAIN LEVEL 4 TO 6 07/14/25 08:30 07/14/25 08:49 DC Naloxone HCl (NARcan 0.4mg/1 mL) 0.1 mg AD PRN IVP RESPIRATORY SYMPTOMS 07/14/25 23:00 07/14/25 08:49 DC Nifedipine (adALAT 30MG) 60 mg DAILY PO 07/15/25 09:00 08/14/25 08:59 07/16/25 09:23 60 MG Ondansetron HCl (zoFRAN 4MG INJ) 4 mg AD PRN IVP NAUSEA/VOMITING 07/14/25 08:30 07/14/25 08:49 DC Ondansetron HCl (zoFRAN 4MG INJ) 4 mg Q6H PRN IVP NAUSEA/VOMITING 07/13/25 15:30 08/12/25 15:29 Piperacillin Sod/ Tazobactam Sod (Zosyn 3.375gm+NS 50ml) 3.375 gm BID IVPB 07/13/25 21:00 07/23/25 20:59 07/16/25 09:24 3.375 GM Promethazine HCl (Phenergan) 25 mg AD PRN IM NAUSEA/VOMITING 07/14/25 08:30 07/14/25 08:49 DC Sodium Chloride 1,000 ml @ 0 mls/hr ONCE IV 07/14/25 11:00 08/13/25 10:59 07/14/25 12:55 100 MLS/HR Thiamine HCl (Vitamin B-1) 100 mg Q24H IVP 07/13/25 15:30 08/12/25 15:29 07/15/25 14:52 100 MG Vancomycin HCl 100 ml @ 100 mls/hr QMOWEFR[DIALYSIS] IV 07/16/25 16:00 07/26/25 15:59 Vancomycin HCl (Vancomycin Protocol) 1 each AD IV 07/13/25 12:30 07/27/25 12:29 Vitamin B Complex/ Vit C/Folic Acid (Nephrovite Tablet) 1 cap DAILY PO 07/14/25 09:00 08/13/25 08:59 07/16/25 09:23 1 CAP DIAGNOSTICS / RADIOLOGY: [ ] ASSESSMENT: Gram-negative sepsis, POA 07/09/25 BC showed- Enterobacter agglomerans Now Gram-positive bacteremia showing on BC, POA Rule out complicated UTI with pyelonephritis, POA Hypotension secondary to sepsis as outpatient, POA Recent history of enteritis, POA Recent microbiological cultures positive for Enterobacter in blood, 07/09/2025, POA Rule out dialysis catheter associated infection, POA History of ESRD, POA Type 2 diabetes mellitus, POA Hypertension, POA Hyperlipidemia, POA History of diabetic foot ulcer in 2022 requiring right foot 5th digit partial ray amputation, POA PLAN: patient remains admitted to the medical floor, alert and oriented x3 at the time of my visit. Status post interval removal of PermCath with tip sent off for Gram stain, aerobic and anaerobic culture and sensitivity 09/14/2024. Patient is scheduled for hemodialysis today. We will continue with broad- spectrum IV antibiotics, continue to trend WBC in a.m., continue to follow ID input and recommendations. Plan of action discussed with the patient and family at bedside, all questions answered, agreed and understood the information p rovided. NEURO: Minimize central acting medications as possible. Fall Precautions. Well lighted room through the day and minimize interruptions through the night to prevent acute delirium. PULMONARY: Supplemental 02 as needed BiPAP as necessary, for respiratory distress Titrate Fio2 to keep Spo2 > or = 90% DuoNebs and CPT as needed IS hourly while awake for pulmonary hygiene prn Out of bed to chair as tolerated Maintain aspiration precautions at all times CARDIOVASCULAR: Follow hemodynamics. Vital signs per facility protocol GI & NUTRITION: Continue nutritional support Aspirations precautions Prokinetic agents and laxatives as needed KIDNEYS & ELECTROLYTES: Strict monitoring of intake and output Daily weights Avoid nephrotoxic agents Monitor electrolytes and replace as needed Goal urine output of 30mL/hr or 0.5mL/kg/hr Medications to be dosed according to renal function. Avoid contrast if possible ENDOCRINE: Maintain blood glucose between 100-180 at all times. Insulin sliding scale for blood glucose management Hypoglycemia and hyperglycemia protocol in place INFECTIOUS DISEASE: Trend temperature, WBC and procalcitonin level Follow cultures, deescalate antibiotics as soon as possible. Panculture if new onset fever HEMATOLOGY & COAGULATION: Monitor H&H. Keep Hgb > 7 Transfuse 1 unit of PRBC for Hgb < 7 Transfuse 1 pack of platelets of platelets < 20, 000 Watch for any signs and symptoms of bleeding SKIN: Pressure ulcer prevention per facility protocol Specialty mattress as needed ORTHO/REHAB Continue PT/OT PRN: MEDICATIONS Tylenol 650 mg po every 4 hrs for fever zofran 4 mg IV every 6 hrs for n/v Hydralazine 5 mg IV every 4 hrs systolic pressure > 160 bowel regiment: lactulose 20 gm PO BID PRN constipation Supportive measures: Continue GI and DVT prophylaxis Disposition: Pending improvement in clinical condition All questions answered time spent: > 35 min OSWALDO JIM MD Jul 16, 2025 12:44
[2025-07-16] MEDS: VANCOMYCIN 500MG+NS 100ML 100 ML IV SCH (16:00)
--- NOTE | 2025-07-16 17:13 | PN ---
INFECTIOUS DISEASE PROGRESS NOTE Date of Service: Jul 16, 2025 SUBJECTIVE: Patient is awake, alert and oriented. WBC is improving, today is 15.4 and patient remains afebrile. Patient will be dialyzed today. No dyspnea. We will continue on vancomycin and Zosyn and continue to follow up on the blood and catheter tip final culture results. PHYSICAL EXAM EYES: Anicteric. Pupils equal and reactive. Poor eyesight in the right eye. HENT: No oral thrush seen, moist Oral mucosa. NECK: Supple, no JVD or thyromegaly. LUNGS: Good air entry. No rales, no rhonchi. CARDIOVASCULAR: S1, S2 regular. No murmur heard. ABDOMEN: Soft, non tender, bowel sounds present. CENTRAL NERVOUS SYSTEM: Awake, alert, oriented x 3. SKIN: No rashes, no swelling. LYMPHATICS: No peripheral lymphadenopathy MUSCULOSKELETAL: No joint swelling, erythema or tenderness. EXTREMITIES: No cyanosis or clubbing. Right 5th toe amputation. BACK: No deformity, no pressure ulcer. GENITOURINARY: No dysuria or hematuria. Vital Sign (Last 12 Hours) 07/16/25 07/16/25 07/16/25 07/16/25 07:26 08:00 11:16 13:00 Temp 98.2 99.1 98.6 Pulse 71 74 77 Resp 18 20 16 B/P (MAP) 118/70 124/68 131/76 Pulse Ox 98 98 97 O2 Delivery Room Air Room Air* Room Air Room Air O2 Flow Rate 0 FiO2 21 07/16/25 07/16/25 07/16/25 07/16/25 14:00 14:15 14:30 14:45 Temp 98.6 Pulse 73 77 78 78 Resp 16 16 16 16 B/P (MAP) 145/75 150/81 153/77 146/77 O2 Delivery Room Air Room Air Room Air Room Air 07/16/25 07/16/25 07/16/25 07/16/25 15:00 15:15 15:30 15:45 Pulse 80 80 82 82 Resp 16 16 16 16 B/P (MAP) 152/78 160/85 161/83 160/62 O2 Delivery Room Air Room Air Room Air Room Air 07/16/25 07/16/25 07/16/25 07/16/25 16:00 16:15 16:30 16:45 Pulse 84 84 82 82 Resp 16 16 16 16 B/P (MAP) 157/76 151/80 160/85 158/81 O2 Delivery Room Air Room Air Room Air Room Air 07/16/25 17:00 Pulse 81 Resp 16 B/P (MAP) 155/76 O2 Delivery Room Air Intake & Output (last 24hrs) 07/15/25 07/15/25 07/16/25 15:00 23:00 07:00 Intake Total 1550.0 ml Balance 1550.0 ml LABS: Laboratory: Test 07/16/25 16:33 07/16/25 11:33 07/16/25 03:14 07/15/25 04:54 Range/Units Whole Blood Glucose 179 H 70-110 MG/DL White Blood Count 13.3 H 4.8-10.8 K/uL Red Blood Count 3.23 L 4.50-6.20 MIL/uL Hemoglobin 9.9 L 14.0-18.0 g/dL Hematocrit 30.1 L 42-54 % Mean Corpuscular Volume 93.2 79-99 fL Mean Corpuscular Hemoglobin 30.7 27.0-33.0 pg Mean Corpuscular Hemoglobin Concent 32.9 32.0-36.0 g/dL Red Cell Distribution Width 13.2 11.0-15.5 % Platelet Count 261 # 130-400 K/uL Mean Platelet Volume 10.1 7.5-10.5 fL Nucleated Red Blood Cells 0.0 0.0-0.19 % Sodium Level 138 136-145 mmol/L Potassium Level 4.0 3.5-5.1 mmol/L Chloride Level 97 L 101-111 mmol/L Carbon Dioxide Level 25 21-32 mmol/L Blood Urea Nitrogen 75 *H 7-18 mg/dL Creatinine 10.5 *H 0.5-1.3 mg/dL Glomerular Filtration Rate Calc 6 >90 mL/min Random Glucose 182 H 70-105 mg/dL Total Calcium 5.6 *L 8.5-10.1 mg/dL Magnesium Level 2.20 1.80-2.40 mg/dL Total Bilirubin 0.3 0.2-1.0 mg/dL Aspartate Amino Transf (AST/SGOT) 22 10-37 U/L Alanine Aminotransferase (ALT/SGPT) 16 12-78 U/L Alkaline Phosphatase 131 50-136 U/L Total Protein 5.9 L 6.0-8.3 g/dL Albumin 1.8 L 3.5-5.0 g/dL Procalcitonin > 200.00 H 0.05-0.5 ng/mL ASSESSMENT: Gram-positive bacteremia. Infected PermCath. Leukocytosis. End-stage renal disease, on dialysis. PLAN: Continue vancomycin per pharmacy protocol. Continue Zosyn. Continue GI prophylaxis. Continue antidiabetics. Continue dialysis as recommended by ivory polisher. We will follow up on the final cultures results. This case was reviewed and discussed with my supervising physician Dr. Angeles and the above assessment and plan was formulated and agreed upon. ATTESTATION BY PHYSICIAN I have seen and examined the patient. I reviewed the documentation, medical decision making, and treatment plan as noted by the mid-level provider above. I agree with the findings and plan of care. NICOL ANGELES MD, [facility] Jul 16, 2025 17:13
[2025-07-17 04:00] VITALS: BP 133/67; PULSE 79; RESP 16; TEMP 98.2
[2025-07-17 07:35] VITALS: BP 141/74; PULSE 75; RESP 18; TEMP 98.3
[2025-07-17 11:10] VITALS: BP 150/78; PULSE 78; RESP 16; TEMP 98.1
[2025-07-17 11:30] VITALS: O2SAT 94
--- NOTE | 2025-07-17 12:32 | PN ---
[facility] PROGRESS NOTE Date of Service: Jul 17, 2025 Time of Service: 12:30 SUBJECTIVE: [35 year old male admitted due to fever, his HD catheter was removed by Dr Torres and tip was sent for cx. Patient was multiple bacteria growing in the blood culture, initial report showed gram negative, now gram positive. We have Dr tavera with antbx management. Today, WBC inc. to 18.1. Discussed the plan with patient and family, they verbalized understanding. ] 07/16 patient remains admitted to the medical floor, alert and oriented x3 at the time of my visit. Status post interval removal of PermCath with tip sent off for Gram stain, aerobic and anaerobic culture and sensitivity 09/14/2024. Patient is scheduled for hemodialysis today. We will continue with broad-spectr um IV antibiotics, continue to trend WBC in a.m., continue to follow ID input and recommendations. Plan of action discussed with the patient and family at bedside, all questions answered, agreed and understood the information provided. 07/17 patient remains admitted to medical floor, comfortably in bed, no acute events overnight, he is alert oriented x3, BP 141/74, afebrile, saturating normal on room air, WBC today 13.3, slowly trending down, results of culture positive for Pseudomonas aeruginosa. Patient to continue Zosyn IV, adjusted to creatinine clearance. Continue to follow ID input and recommendations. Continue hemodialysis per Nephrology recommendation. Follow a.m. labs. Discharge plan discussed with case management. Patient will need outpatient antibiotic arrangements. REVIEW OF SYSTEMS CONSTITUTIONAL: reports having fevers, chills, malaise, asthenic for several days NEUROLOGICAL: Denies headache, amaurosis fugax, motor weakness, sensory deficit, vertigo/spinning sensation, gait abnormalities, or tremors. ENT: No hearing loss, otalgia, otorrhea, rhinitis, rhinorrhea, hoarseness, or sore throat. CARDIOVASCULAR: Denies any exertional angina, dyspnea on exertion, orthopnea, paroxysmal nocturnal dyspnea, palpitations, life-threatening arrhythmias, nick dication. PULMONARY: Denies any shortness of breath, cough, phlegm/sputum, hemoptysis, pleuritic chest pain. SLEEP: Denies morning headaches, daytime somnolence or napping. Denies difficulty falling asleep, staying asleep, waking from sleep. Denies knowledge of snoring. GASTROINTESTINAL: nausea, vomiting, poor pral intake for several days GENITOURINARY: Denies frequency, urgency, nocturia, hematuria or incontinence (Storage/Irritative symptoms.) Low urinary stream, straining to void, urinary intermittency or hesitancy, splitting of the voiding stream, terminal dribbling. ENDOCRINOLOGIC: Denies polyuria, polydipsia, polyphagia or heat/cold intolerances. HEMATOLOGIC: Denies thrombophilia/previous clots, or coagulopathy/bleeding disorders. ONCOLOGIC: Denies personal history of malignancy. DERMATOLOGIC: Denies rashes or pruritus. PSYCHIATRIC: Denies any suicidal or homicidal ideation. Denies hallucinations. PHYSICAL EXAM GENERAL APPEARANCE: The patient is lethargic, able to answer, appears debilitated NEUROLOGICAL: Cranial nerves II-XII grossly intact. Motor is 5/5 in bilateral upper and lower extremities proximal to distal. No sensory deficits. HEENT: Face is symmetric. Pupils are equal and reactive. Extraocular movements are intact. NECK: Supple. No JVD. No thyromegaly. No submental, submandibular, pre- /postauricular, occipital or supraclavicular lymphadenopathy. CHEST: Normal chest expansion. No Telemetry. LUNGS: Absence of any rales, rhonchi or any wheezing. CARDIOVASCULAR: Regular. S1 and S2 normal. No appreciable rubs, murmurs or gallops. ABDOMEN: Soft, nontender, and nondistended. There is no rebound, voluntary guarding, or rigidity. : Deferred. No Millan. EXTREMITIES: Fistula noted of the left arm with thrill and bruit Vital Signs (last 8hr) Date Time Temp Pulse Resp B/P (MAP) Pulse Ox O2 Delivery O2 Flow Rate FiO2 07/17/25 07:35 98.2 75 18 141/74 100 Room Air LABS: Laboratory: Test 07/17/25 10:28 07/16/25 11:33 07/16/25 03:14 Range/Units Whole Blood Glucose 82 70-110 MG/DL White Blood Count 13.3 H 4.8-10.8 K/uL Red Blood Count 3.23 L 4.50-6.20 MIL/uL Hemoglobin 9.9 L 14.0-18.0 g/dL Hematocrit 30.1 L 42-54 % Mean Corpuscular Volume 93.2 79-99 fL Mean Corpuscular Hemoglobin 30.7 27.0-33.0 pg Mean Corpuscular Hemoglobin Concent 32.9 32.0-36.0 g/dL Red Cell Distribution Width 13.2 11.0-15.5 % Platelet Count 261 # 130-400 K/uL Mean Platelet Volume 10.1 7.5-10.5 fL Nucleated Red Blood Cells 0.0 0.0-0.19 % Sodium Level 138 136-145 mmol/L Potassium Level 4.0 3.5-5.1 mmol/L Chloride Level 97 L 101-111 mmol/L Carbon Dioxide Level 25 21-32 mmol/L Blood Urea Nitrogen 75 *H 7-18 mg/dL Creatinine 10.5 *H 0.5-1.3 mg/dL Glomerular Filtration Rate Calc 6 >90 mL/min Random Glucose 182 H 70-105 mg/dL Total Calcium 5.6 *L 8.5-10.1 mg/dL Magnesium Level 2.20 1.80-2.40 mg/dL Current Medications Medications (Trade) Dose Ordered Sig/Jeff Route PRN Reason Start Time Stop Time Status Last Admin Dose Admin Acetaminophen (TYLenol 325MG TAB) 650 mg Q6H PRN PO MILD PAIN (1-3) 07/13/25 15:30 08/12/25 15:29 Dextrose (D50w) 50 ml AD PRN IV HYPOGLYCEMIA PROTOCOL 07/13/25 15:30 08/12/25 15:29 Famotidine (Pepcid 20mg Tab) 20 mg QMOWEFR@1900 PO 07/13/25 21:00 08/12/25 20:59 07/16/25 20:13 20 MG Fentanyl Citrate (FENTanyl CITRate PF 50 MCG/ 1 ML 2ML VIAL) 25 mcg Q5MIN PRN IVP PAIN LEVEL 7 TO 10 07/14/25 08:30 07/14/25 08:49 DC Glucagon (Glucagon 1mg Kit) 1 mg AD PRN IM HYPOGLYCEMIA PROTOCOL 07/13/25 15:30 08/12/25 15:29 Heparin Sodium (Porcine) (HEParin 5,000 UNIT VIAL) 5,000 unit BID SQ 07/13/25 21:00 08/12/25 20:59 07/17/25 08:52 5,000 UNIT Home Med (Home Medication) (Ferric Citrate 210MG -... TID PO 07/15/25 09:00 08/14/25 08:59 Hydralazine HCl (APRESOLine 20MG INJ) 5 mg Q6H PRN IV ADMINISTER FOR SBP > 160 07/14/25 06:00 08/13/25 05:59 Insulin Glargine (LANtus 100 UNITS/ML 10 ML VIAL) 12 units DAILY SQ 07/15/25 09:00 08/14/25 08:59 07/17/25 08:53 12 UNITS Insulin Human Regular (humuLIN R 100 UNIT/ML 3ML) INSULIN SLIDING SCAL... ACHS SQ 07/13/25 16:30 08/12/25 16:29 07/17/25 06:15 5 UNIT Ketorolac Tromethamine (toRADol) 30 mg AD PRN IV PAIN LEVEL 1 TO 3 07/14/25 08:30 07/14/25 08:13 DC Levothyroxine Sodium (SYNTHroid 50MCG TAB) 50 mcg SYN PO 07/16/25 06:30 08/15/25 06:29 07/17/25 06:11 50 MCG Metoclopramide HCl (regLAN 10MG IV) 10 mg AD PRN IVP NAUSEA/VOMITING 07/14/25 08:30 07/14/25 08:49 DC Morphine Sulfate (morPHINE 2MG SYG) 2 mg AD PRN IVP PAIN LEVEL 4 TO 6 07/14/25 08:30 07/14/25 08:49 DC Naloxone HCl (NARcan 0.4mg/1 mL) 0.1 mg AD PRN IVP RESPIRATORY SYMPTOMS 07/14/25 23:00 07/14/25 08:49 DC Nifedipine (adALAT 30MG) 60 mg DAILY PO 07/15/25 09:00 08/14/25 08:59 07/17/25 08:41 60 MG Ondansetron HCl (zoFRAN 4MG INJ) 4 mg AD PRN IVP NAUSEA/VOMITING 07/14/25 08:30 07/14/25 08:49 DC Ondansetron HCl (zoFRAN 4MG INJ) 4 mg Q6H PRN IVP NAUSEA/VOMITING 07/13/25 15:30 08/12/25 15:29 Piperacillin Sod/ Tazobactam Sod (Zosyn 3.375gm+NS 50ml) 3.375 gm BID IVPB 07/13/25 21:00 07/23/25 20:59 07/17/25 08:40 3.375 GM Promethazine HCl (Phenergan) 25 mg AD PRN IM NAUSEA/VOMITING 07/14/25 08:30 07/14/25 08:49 DC Sodium Chloride 1,000 ml @ 0 mls/hr ONCE IV 07/14/25 11:00 08/13/25 10:59 07/16/25 14:17 100 MLS/HR Thiamine HCl (Vitamin B-1) 100 mg Q24H IVP 07/13/25 15:30 08/12/25 15:29 07/15/25 14:52 100 MG Vancomycin HCl 100 ml @ 100 mls/hr QMOWEFR[DIALYSIS] IV 07/16/25 16:00 07/17/25 10:25 DC 07/16/25 16:00 100 MLS/HR Vancomycin HCl (Vancomycin Protocol) 1 each AD IV 07/13/25 12:30 07/17/25 10:25 DC Vitamin B Complex/ Vit C/Folic Acid (Nephrovite Tablet) 1 cap DAILY PO 07/14/25 09:00 08/13/25 08:59 07/17/25 08:40 1 CAP DIAGNOSTICS / RADIOLOGY: [ ] ASSESSMENT: Gram-negative sepsis, POA 07/09/25 BC showed- Enterobacter agglomerans Now Gram-positive bacteremia showing on BC, POA Rule out complicated UTI with pyelonephritis, POA Hypotension secondary to sepsis as outpatient, POA Recent history of enteritis, POA Recent microbiological cultures positive for Enterobacter in blood, 07/09/2025, POA Rule out dialysis catheter associated infection, POA History of ESRD, POA Type 2 diabetes mellitus, POA Hypertension, POA Hyperlipidemia, POA History of diabetic foot ulcer in 2022 requiring right foot 5th digit partial ray amputation, POA PLAN: patient remains admitted to medical floor, comfortably in bed, no acute events overnight, he is alert oriented x3, BP 141/74, afebrile, saturating normal on room air, WBC today 13.3, slowly trending down, results of culture positive for Pseudomonas aeruginosa. Patient to continue Zosyn IV, adjusted to creatinine clearance. Continue to follow ID input and recommendations. Continue hemo dialysis per Nephrology recommendation. Follow a.m. labs. Discharge plan discussed with case management. Patient will need outpatient antibiotic arrangements. NEURO: Minimize central acting medications as possible. Fall Precautions. Well lighted room through the day and minimize interruptions through the night to prevent acute delirium. PULMONARY: Supplemental 02 as needed BiPAP as necessary, for respiratory distress Titrate Fio2 to keep Spo2 > or = 90% DuoNebs and CPT as needed IS hourly while awake for pulmonary hygiene prn Out of bed to chair as tolerated Maintain aspiration precautions at all times CARDIOVASCULAR: Follow hemodynamics. Vital signs per facility protocol GI & NUTRITION: Continue nutritional support Aspirations precautions Prokinetic agents and laxatives as needed KIDNEYS & ELECTROLYTES: Strict monitoring of intake and output Daily weights Avoid nephrotoxic agents Monitor electrolytes and replace as needed Goal urine output of 30mL/hr or 0.5mL/kg/hr Medications to be dosed according to renal function. Avoid contrast if possible ENDOCRINE: Maintain blood glucose between 100-180 at all times. Insulin sliding scale for blood glucose management Hypoglycemia and hyperglycemia protocol in place INFECTIOUS DISEASE: Trend temperature, WBC and procalcitonin level Follow cultures, deescalate antibiotics as soon as possible. Panculture if new onset fever HEMATOLOGY & COAGULATION: Monitor H&H. Keep Hgb > 7 Transfuse 1 unit of PRBC for Hgb < 7 Transfuse 1 pack of platelets of platelets < 20, 000 Watch for any signs and symptoms of bleeding SKIN: Pressure ulcer prevention per facility protocol Specialty mattress as needed ORTHO/REHAB Continue PT/OT PRN: MEDICATIONS Tylenol 650 mg po every 4 hrs for fever zofran 4 mg IV every 6 hrs for n/v Hydralazine 5 mg IV every 4 hrs systolic pressure > 160 bowel regiment: lactulose 20 gm PO BID PRN constipation Supportive measures: Continue GI and DVT prophylaxis Disposition: Pending improvement in clinical condition All questions answered time spent: > 35 min OSWALDO JIM MD Jul 17, 2025 12:32
--- NOTE | 2025-07-17 19:07 | NUR ---
DISCHARGE PATIENT WAS DISCHARGED HOME WITH REFERRAL TO [facility] FOR IV ANTIBIOTIC THERAPY 2 LUMEN MIDLINE ACCESS ON RIGHT UPPER ARM PERIPHERAL IV WAS DISCONTINUED NEW PRESCRIPTION ORDERS WERE SUBMITTED TO PHARMACY SCRIPT FOR [facility]O FOR [facility] WAS GIVEN TO PATIENT AT DISCHARGE INSTRUCTIONS [facility] PAPERWORK ALSO GIVEN DISCHARGE INSTRUCTIONS GIVEN TO PATIENT, TOLD TO FOLLOW UP WITH PCP, NEPHROLOGY AND ID OUTPATIENT NO FURTHER QUESTIONS AT THE MOMENT
--- NOTE | 2025-07-17 19:47 | PN ---
INFECTIOUS DISEASE PROGRESS NOTE Date of Service: Jul 17, 2025 SUBJECTIVE: This is a 35 year old male patient who was seen and examined at bedside in room 401. Patient is awake, alert and oriented x3. The final blood culture and the tip of the right PermCath culture results came back positive for Pseudomonas Aeruginosa. Patient was updated with these findings. We will discontinue the vancomycin and continue Zosyn IV. Will place midline, will have case management evaluate for referral to [facility] for outpatient IV with Zosyn x 14 days. PHYSICAL EXAM EYES: Anicteric. Pupils equal and reactive. HENT: No oral thrush seen, moist Oral mucosa. NECK: Supple, no JVD or thyromegaly. LUNGS: Good air entry. No rales, no rhonchi. CARDIOVASCULAR: S1, S2 regular. No murmur heard. ABDOMEN: Soft, non tender, bowel sounds present. CENTRAL NERVOUS SYSTEM: Awake, alert, oriented x 3. SKIN: No rashes, no swelling. LYMPHATICS: No peripheral lymphadenopathy MUSCULOSKELETAL: No joint swelling, erythema or tenderness. EXTREMITIES: No cyanosis or clubbing. Right 5th toe amputation. BACK: No deformity, no pressure ulcer. GENITOURINARY: No dysuria or hematuria. Vital Sign (Last 12 Hours) 07/17/25 07/17/25 07/17/25 07:35 11:10 11:30 Temp 98.2 98.1 Pulse 75 78 Resp 18 16 B/P (MAP) 141/74 150/78 Pulse Ox 100 94 94 O2 Delivery Room Air Room Air Room Air* O2 Flow Rate 0 FiO2 21 Intake & Output (last 24hrs) 07/16/25 07/16/25 07/17/25 15:00 23:00 07:00 Output Total 2000 ml Balance -2000 ml LABS: Laboratory: Test 07/17/25 15:56 07/16/25 11:33 07/16/25 03:14 Range/Units Whole Blood Glucose 223 #H 70-110 MG/DL White Blood Count 13.3 H 4.8-10.8 K/uL Red Blood Count 3.23 L 4.50-6.20 MIL/uL Hemoglobin 9.9 L 14.0-18.0 g/dL Hematocrit 30.1 L 42-54 % Mean Corpuscular Volume 93.2 79-99 fL Mean Corpuscular Hemoglobin 30.7 27.0-33.0 pg Mean Corpuscular Hemoglobin Concent 32.9 32.0-36.0 g/dL Red Cell Distribution Width 13.2 11.0-15.5 % Platelet Count 261 # 130-400 K/uL Mean Platelet Volume 10.1 7.5-10.5 fL Nucleated Red Blood Cells 0.0 0.0-0.19 % Sodium Level 138 136-145 mmol/L Potassium Level 4.0 3.5-5.1 mmol/L Chloride Level 97 L 101-111 mmol/L Carbon Dioxide Level 25 21-32 mmol/L Blood Urea Nitrogen 75 *H 7-18 mg/dL Creatinine 10.5 *H 0.5-1.3 mg/dL Glomerular Filtration Rate Calc 6 >90 mL/min Random Glucose 182 H 70-105 mg/dL Total Calcium 5.6 *L 8.5-10.1 mg/dL Magnesium Level 2.20 1.80-2.40 mg/dL DIAGNOSTICS / RADIOLOGY: PATIENT: BO FELDMAN ACCT: [id number] LOC: [facility] U: [id number] AGE/SX: 35/M ROOM: [facility] RE07/13/[address]: MARLENE MAYO MD : 1990 BED: 1 DIS: STATUS: ADM IN TLOC: SPEC: [id number] ARNOLD: 07/13/25-1237 STATUS: COMP REQ: [id number] RECD: 07/14/[address]: LUCHO WADSWORTH MD SOURCE: BLOOD ENTR: 07/14/[address] [facility] [address]: JOSEPH CARLSON MD SPDESC: BLOOD FAIZAN SMITH MD ORDERED: AERO ID & SENS Procedure Result Georgi Date-Time AEROBIC ID & SENSITIVITIES Final 07/17/25-713 [facility] DESCRIPTION: DAY 1: GRAM NEGATIVE RODS PEDIATRIC BOTTLE IDENTIFICATION AND SENSITIVITY TO FOLLOW PSEUDOMONAS AERUGINOSA P. Aerugin M.I.C. RX --------- ---- AZTREONAM <=4 S CEFTAZIDIME <=1 S CEFTAZIDIME/AVIBACTAM <=8 S CIPROFLOXACIN <=0.25 S LEVOFLOXACIN <=0.5 S MEROPENEM <=1 S PIPERACILLIN/TAZOBACTAM <=8 S ------ ------ PATIENT: BO FELDMAN Kyra ACCT: [id number] LOC: [facility] U: [id number] AGE/SX: 35/M ROOM: 401 RE07/13/[address]: MARLENE MAYO MD : 1990 BED: 1 DIS: STATUS: ADM IN TLOC: SPEC: [id number] ARNOLD: 07/14/25 STATUS: RES REQ: [id number] RECD: 07/14/[address] [facility] [address]: KALEY BRANHAM MD SOURCE: CHEST ENTR: 07/14/[address]: NICOL ANGELES MD SPDESC: OTHER TOÑO,JEEVAN CARLSON,JOSEPH MAYO,MARLENE SILVA,KRIS Howard MD ORDERED: GS, TARIQ CULTURE, AEROBIC CULTURE COMMENTS: Has specimen been collected/obtained? Y Specimen Comment: RIGHT CHEST PERMA CATH TIP COL BY DR BRANHAM Has specimen been collected/obtained? Y Specimen Comment: RIGHT CHEST PERMA CATH TIP COL BY DR BRANHAM CONTINUED ON NEXT PAGE RUN DATE: 07/17/[address] [facility] PAGE 2 RUN TIME: [id number] [place] [address] Department of Laboratories IA # [id number] [employer] Teacher: Mackenzie Morse DO Specimen Report SPEC: [id number] PATIENT: BO FELDMAN [id number] (Continued) Procedure Result Georgi Date-Time ---- -------- GRAM STAIN ONLY Final 07/14/25 GRAM STAIN: RARE GRAM POSITIVE COCCI 2+ WBC ANAEROBIC CULTURE Preliminary 07/17/250 [facility] DESCRIPTION: REPORT 1: NO ANAEROBES AT 16-23 HOURS; STUDIES TO CONTINUE REPORT 2: NO ANAEROBES AT 36-47 HOURS; STUDIES TO CONTINUE Test(s) performed by: [facility] [address] [facility] [place] [address] AEROBIC CULTURE Final 07/17/25 [facility] DESCRIPTION: REPORT 1: COLONY COUNT: < 15 COLONIES GRAM NEGATIVE RODS POSSIBLE PSEUDOMONAS SPECIES IDENTIFICATION AND SENSITIVITY TO FOLLOW REPORT 2: NO FURTHER WORK-UP DONE PSEUDOMONAS AERUGINOSA P. Aerugin M.I.C. RX --------- ---- AZTREONAM <=4 S CEFTAZIDIME 4 S CEFTAZIDIME/AVIBACTAM <=8 S CIPROFLOXACIN <=0.25 S LEVOFLOXACIN <=0.5 S MEROPENEM <=1 S PIPERACILLIN/TAZOBACTAM <=8 S ASSESSMENT: Pseudomonas aeruginosa bacteremia. PermCath infection with Pseudomonas aeruginosa. Leukocytosis. End-stage renal disease, on dialysis. Diabetes mellitus. PLAN: Discontinue vancomycin. Continue Zosyn. Place Midline. Case management to evaluate for referral to [facility] [place] for outpatient IV antibiotic with Zosyn x 14 days. Prescription was written. Continue GI prophylaxis. Continue antidiabetics. Continue on dialysis recommended by integration architect. This case was reviewed and discussed with my supervising physician Dr. Angeles and the above assessment and plan was formulated and agreed upon. ATTESTATION BY PHYSICIAN I have seen and examined the patient. I reviewed the documentation, medical decision making, and treatment plan as noted by the mid-level provider above. I agree with the findings and plan of care. NICOL ANGELES MD, [facility] Jul 17, 2025 19:47
--- NOTE | 2025-07-18 09:11 | DS ---
Discharge Summary Hospital Course Summary: DATE OF SERVICE 07/17/2025 THE PATIENT INITIALLY ADMITTED TO HOSPITAL 07/13/2025 WITH THE FOLLOWING HISTORY OF THE PRESENT ILLNESS: This is a young 35-year-old male with underlying history of hypertension, type 2 diabetes mellitus, ESRD on Wednesday, Wednesday, Wednesday hemodialysis, history of left arm AV fistula, history of dialysis catheter placement to the right chest, presented to the ER for further evaluation of generalized debility, malaise, fevers ongoing for the past 4-5 days. Patient states that he has been having nausea with poor oral intake. Reports that he was recently seen in [place] [facility] after he presented with nausea and vomiting. Patient on further workup was [place] [address]. Patient underwent further workup with CT of the abdomen pelvis without IV contrast which showed small bowel enteritis. Patient was discharged from ER on 07/09/2025 with symptomatic management. Patient denies being given antibiotics on discharge. Patient states that he has continued to do poorly. On review of labs from 07/09/2025, blood culture was positive for Gram-negative rods with Enterobacter agglomerans which was pansens itive. Patient reports that he continues to do poorly and has been having fevers daily. He does report having small amount of urine output. Denies having significant dysuria. Patient was supposed to have hemodialysis today with dialysis could not be co mpleted due to hypotension with girlfriend reporting that patient had systolic blood pressure in the 50s. Patient followed up with his PCP where he was found to have blood pressure in the 70s/50s. On presentation to the hospital, [place] [address] with hemoglobin of 10.7, platelet count of 153,000. Patient did present with fever of 101.7 F, heart rate of 102, blood pressure 133/68. BMP showed sodium of 132, potassium 4.0, chloride of 91, BUN of 47, creatinine of 8.8, total calcium was 6.9 POA Patient admitted for further treatment and management of Gram-negative sepsis with history of right chest dialysis catheter placement. Family reported that dialysis catheter is pending to be removed later this month in [place]. Out patient dialysis center has been using left arm AV fistula for dialysis since June. HOSPITAL COURSE 07/15 35 year old male admitted due to fever, his HD catheter was removed by Dr Torres and tip was sent for cx. Patient was multiple bacteria growing in the blood culture, initial report showed gram negative, now gram positive. We have Dr tavera with antbx management. Today, WBC inc. to 18.1. Discussed the plan with patient and family, they verbalized understanding. 07/16 patient remains admitted to the medical floor, alert and oriented x3 at the time of my visit. Status post interval removal of PermCath with tip sent off for Gram stain, aerobic and anaerobic culture and sensitivity 09/14/2024. Patient is scheduled for hemodialysis today. We will continue with broad- spectrum IV antibiotics, continue to trend WBC in a.m., continue to follow ID input and recommendations. Plan of action discussed with the patient and family at bedside, all questions answered, agreed and understood the information provided. 07/17 the patient was seen and examined at bedside, no acute events overnight, alert oriented x3, discharge plan discussed with case management, arrangements made for outpatient IV antibiotics at [facility] per ID recommendations. Pat ient to be discharged home. Brief Writer(s): Nephrology, General surgery, Infectious Disease Services. Procedure(s): OPERATIVE REPORT Name: BO FELDMAN Acct: [id number] MR: [id number] : 1990 Admit Date: 07/13/25 [place] [address] Operative Note: DATE OF PROCEDURE: 07/14/25 SURGEON: KALEY TORRES MD MANAGER PACKAGING: [Kimberly Barriga CFA] ANESTHESIA: [General endotracheal anesthesia] ANESTHESIOLOGIST/LEGAL BILLER: [[facility] anesthesia team] PREOPERATIVE DIAGNOSIS: [Bacteremia with infected PermCath] POSTOPERATIVE DIAGNOSIS: [Same] SYNOPSIS: [Bacteremia with infected PermCath Removal of PermCath PermCath completely removed Tip sent off for Gram stain, aerobic and anaerobic culture and sensitivity All sponges and instruments accounted for at the end the case Patient tolerated the procedure well, there no complications] PROCEDURE: [Removal of PermCath] ESTIMATED BLOOD LOSS: [Less than 10 cc] INDICATIONS: [Bacteremia with infected PermCath] DESCRIPTION OF PROCEDURE: [On day of surgery patient presented to the hospital. Patient was brought back to operating room. Positioned in the supine position. Preoperative antibiotics were given. Bilateral SCDs were placed. Patient was intubated. Patient then was prepped and draped the usual fashion. Local anesthetic was instilled into the skin surrounding the site of the PermCath entrance into the body. Dissection around the PermCath to the cuffs was done with a pair of curved clamps. The cuff was from all the surrounding adhesive tissue. As the catheters were removed pressure was placed at the entrance site to the jugular vein. Both catheters were removed in total and the tips were transected and sent off for Gram stain, aerobic, anaerobic culture and sensitivity. Pressure was held at the site of the entrance into the vein for approximately 15 minutes. No bleeding was noted. Then the skin incision itself was closed with carolann. Appropriate dressings were placed. Patient has woken up, transferred to a stretcher, taken to recovery room to recovery. All sponges and instruments accounted for at the end the case. Patient tolerated the procedure well, there no complications.] KALEY TORRES MD Jul 14, 2025 07:58 Electronically Signed by: KALEY TORRES MD07/14/25 [id number] Electronically Co-Signed by: Assessment/Plan: Final diagnosis Gram-negative sepsis due to Pseudomonas aeruginosa, POA Status post interval removal of PermCath 07/14/2025 with the culture of tip of catheter positive for Pseudomonas aeruginosa Hypotension secondary to sepsis as outpatient, POA Recent history of enteritis, POA Recent microbiological cultures positive for Enterobacter in blood, 07/09/2025, POA Rule out dialysis catheter associated infection, POA History of ESRD, POA Type 2 diabetes mellitus, POA Hypertension, POA Hyperlipidemia, POA History of diabetic foot ulcer in 2022 requiring right foot 5th digit partial ray amputation, POA Discharge Instructions: The patient to be discharged home. Arrangements for outpatient IV antibiotics at [facility] already made by case management. Patient to return to the hospital if condition changes. Patient agreed and understood all the info rmation provided. Home Medications: Active Scripts Folic Acid/Vit B Complex and C (Nephro Vitamins Tablet) 0.8 Mg Tablet, 0.8 MG PO DAILY for 60 Days, #30 TAB 1 Refill Prov:OSWALDO JIM MD 07/17/25 Famotidine (Pepcid) 20 Mg Tablet, 1 TAB PO BID for 30 Days, #60 TAB 0 Refills Prov:NORAH CANAS CLIP RIVETER 07/09/25 Reported Medications Ferric Citrate (Ferric Citrate) 210 Mg Iron Tablet, 2 TAB PO TID for 30 Days, #180 TAB 0 Refills 07/14/25 Nifedipine (Nifedipine ER) 60 Mg Tablet.er, 1 TAB PO DAILY for 30 Days, #30 TAB 0 Refills 07/14/25 Insulin Glargine,Hum.rec.anlog (Lantus Solostar) 100 Unit/Ml (3 Ml) Insuln.pen, 25 UNIT SQ DAILY for 30 Days, ML 0 Refills 07/14/25 Levothyroxine Sodium (Levothroid/Synthroid) 50 Mcg Tab, 1 TAB PO DAILY for 30 Days, #30 TAB 0 Refills 07/14/25 Discontinued Reported Medications Calcium Acetate (Phoslo) 667 Mg Cap, 2 CAP PO TID for 30 Days, #180 CAP 0 Refills 07/14/25 Discontinued Scripts Prednisolone (Prednisolone) 5 Mg Tablet, 5 MG PO ONCE for eye swelling for 3 Days, #6 TAB take 2 po once a day by mouth for 3 days Prov:SHAYLA CAT DNP 11/13/22 Metformin HCl (Metformin HCl) 1,000 Mg Tablet, 1000 MG PO BID for 30 Days, #60 TAB 0 Refills Prov:ORA ALVAREZ MD 08/05/22 Amlodipine Besylate (Norvasc 5Mg Tab) 5 Mg Tablet, 5 MG PO DAILY, #30 TAB 0 Refills Prov:ORA ALVAREZ MD 08/05/22 Time spent arranging discharge: 31-60 minutes OSWALDO JIM MD Jul 18, 2025 09:10
== END 2025-07-17 19:38 | disposition home or self-care (01) | DRG 252 ==
LOC: EDH 12:13 → EDHIP 15:02 → 2DH 17:48 → 4AH 07-14 22:57
PROVIDERS: ADMIT Internal Medicine; ATTEND Internal Medicine
PROC: 5A1D70Z Performance of Urinary Filtration, Intermittent, Less than 6 Hours Per Day (ICD-10-PCS; 2025-07-14)
PROC: 05PY03Z Removal of Infusion Device from Upper Vein, Open Approach (ICD-10-PCS; principal; 2025-07-14 07:41)
PROC: 5A1D70Z Performance of Urinary Filtration, Intermittent, Less than 6 Hours Per Day (ICD-10-PCS; 2025-07-16)
PROC: 05HY33Z Insertion of Infusion Device into Upper Vein, Percutaneous Approach (ICD-10-PCS; 2025-07-17)
DX: T80.211A Bloodstream infection due to central venous catheter, initial encounter (principal); A41.50 Gram-negative sepsis, unspecified; J18.9 Pneumonia, unspecified organism; N18.6 End stage renal disease; J96.01 Acute respiratory failure with hypoxia; R65.20 Severe sepsis without septic shock; I12.0 Hypertensive chronic kidney disease with stage 5 chronic kidney disease or end stage renal disease; B96.5 Pseudomonas (aeruginosa) (mallei) (pseudomallei) as the cause of diseases classified elsewhere; N39.0 Urinary tract infection, site not specified; Z99.2 Dependence on renal dialysis; E11.22 Type 2 diabetes mellitus with diabetic chronic kidney disease; D64.9 Anemia, unspecified; K76.0 Fatty (change of) liver, not elsewhere classified; Y84.8 Other medical procedures as the cause of abnormal reaction of the patient, or of later complication, without mention of misadventure at the time of the procedure; E11.65 Type 2 diabetes mellitus with hyperglycemia; E11.69 Type 2 diabetes mellitus with other specified complication; E78.5 Hyperlipidemia, unspecified; N40.0 Benign prostatic hyperplasia without lower urinary tract symptoms; K42.9 Umbilical hernia without obstruction or gangrene; Z83.3 Family history of diabetes mellitus; Y92.89 Other specified places as the place of occurrence of the external cause
CPT/HCPCS: 36415; 36556; 70450; 71045; 74176; 80048; 80053; 80076; 81001; 82948; 83605; 83615; 83735; 84145; 84484; 85025; 85027; 85610; 85651; 85730; 86140; 86704; 86706; 87040; 87070; 87076; 87086; 87186; 87205; 87340; 87426; 87804; 90935; 93005; 93306; 93356; 96374; 96375; 99285; A4344; A4450; C1894; G0378; J1100; J1644; J1815; J2003; J2250; J2371; J2405; J2543; J2704; J3010; J3373; J3411; J7030; A4930; C1750; J0665; J3490